=== PATIENT | female | born 1935 | race Caucasian/White ===

== ENCOUNTER 2017-08-21 03:36 | Inpatient (IN) ==
[2017-08-21] MEDS ORDERED: MethylPREDNISolone Sod Succinate Inj 125 MG/2 ML Vial IV.PUSH ONE (04:01)
[2017-08-21 04:55] LABS: Baso % (Auto) 0.3 % (0.0-2.0); Eos # (Auto) 0.2 th/mm3 (0.0-0.4); Eos % (Auto) 1.9 % (0.0-4.0); Hematocrit 28.5 % (35.0-46.0); Hemoglobin 9.6 gm/dL (11.6-15.3); Lymph # (Auto) 0.3 th/mm3 (1.0-4.8); Lymph % (Auto) 2.5 % (9.0-44.0); Mean Corpuscular HGB Conc 33.7 % (32.0-36.0); Mean Corpuscular Hemoglobin 29.7 pg (27.0-34.0); Mean Corpuscular Volume 88.3 fL (80.0-100.0); Mean Platelet Volume 8.1 fL (7.0-11.0); Mono # (Auto) 0.5 th/mm3 (0.0-0.9); Neut # (Auto) 11.8 th/mm3 (1.8-7.7); Neut % (Auto) 91.3 % (16.0-70.0); Platelet Count 335 th/mm3 (150-450); Red Blood Count 3.23 mil/mm3 (4.00-5.30); Red Cell Distribution Width 14.3 % (11.6-17.2); White Blood Count 12.9 th/mm3 (4.0-11.0)
[2017-08-21 05:11] LABS: Alanine Aminotransferase 24 U/L (10-53); Albumin 2.7 g/dL (3.4-5.0); Anion Gap 7 meq/L (5-15); Aspartate Aminotransferase 15 U/L (15-37); Blood Urea Nitrogen 25 mg/dL (7-18); Calcium 7.6 mg/dL (8.5-10.1); Carbon Dioxide 34.3 meq/L (21.0-32.0); Chloride 94 meq/L (98-107); Glomerular Filtration Rate 64 mL/min (>89); Glucose,Random 121 mg/dL (74-106); Magnesium 2.7 mg/dL (1.5-2.5); Potassium 3.2 meq/L (3.5-5.1); Sodium 135 meq/L (136-145)
--- NOTE | 2017-08-21 05:11 | ED ---
HPI General Chief complaint: Shortness of Breath/Dyspnea Stated complaint: Resp Distress, EVAC Time Seen by Provider: 08/21/17 03:49 History of Present Illness HPI narrative: Patient presents to the ER complaining of shortness of breath. Symptoms have been present for a few days. She was a DNR but she states that she is a full code. Normally takes oxygen 2 L for the last 4-5 days she has had shortness of breath is worse at night. Denies chest pain, fever, nausea, vomiting, edema, reports feeling hot states that she recently had a surgery has been immobile for the past few weeks. Patient has a history of COPD and states that the symptoms are consistent with her COPD exacerbation. Related Data Home Medications Medication Instructions Recorded Confirmed acetaminophen 650 mg PO Q4H PRN 08/21/17 08/21/17 amlodipine 10 mg PO DAILY 08/21/17 08/21/17 baclofen 5 mg PO BID 08/21/17 08/21/17 bisacodyl [Dulcolax (bisacodyl)] 10 mg [place] DAILY PRN 08/21/17 08/21/17 calcium carbonate 600 mg PO BID 08/21/17 08/21/17 furosemide 40 mg PO DAILY 08/21/17 08/21/17 guaifenesin 100 mg PO Q4H PRN 08/21/17 08/21/17 hydrocodone-acetaminophen 1 tab PO Q4-6H PRN 08/21/17 08/21/17 ipratropium-albuterol [Combivent 1 puff INHALATION Q6H 08/21/17 08/21/17 Respimat] lorazepam 08/21/17 losartan 08/21/17 methylprednisolone [Medrol (Mike)] 0 PO PER PKG DIR 08/21/17 metoprolol tartrate 50 mg PO BID 08/21/17 08/21/17 gghxloteotep-enqx-feyir acid 1 tab PO DAILY 08/21/17 08/21/17 [Cerovite Advanced Formula] Allergies Allergy/AdvReac Type Severity Reaction Status Date / Time Penicillins Allergy Intermediate Blister Verified 08/21/17 03:53 Review of Systems ROS Unobtainable All other systems reviewed negative except as stated in HPI [facility] Medical History Medical History COPD (chronic obstructive pulmonary disease) (Acute) Pneumonia (Acute) Hypertension (Acute) Anxiety (Acute) Social History Social History Second Hand Smoke Exposure: Yes Smoking Status: Never smoker How Often Do You Have a Drink Containing Alcohol: Never Recent Travel in [place] within the Last 8 Weeks: No Recent Out of Country Travel within the Last 8 Weeks: No Immunization History Tetanus Immunization: <5 Years Hx Influenza Vaccine This Season: Yes Exam Narrative Exam Narrative: GENERAL: Respiratory distress. SKIN: Focused skin assessment warm/dry. HEAD: Atraumatic. Normocephalic. EYES: Pupils equal and round. No scleral icterus. No injection or drainage. ENT: No nasal bleeding or discharge. Mucous membranes pink and moist. NECK: Trachea midline. No JVD. CARDIOVASCULAR: Regular rate and rhythm. No murmur appreciated. RESPIRATORY: No accessory muscle use. And movement bilaterally, expiratory to her wheezes. GASTROINTESTINAL: Abdomen soft, non-tender, nondistended. Hepatic and splenic margins not palpable. MUSCULOSKELETAL: No obvious deformities. No clubbing. No cyanosis. No edema. NEUROLOGICAL: Awake and alert. No obvious cranial nerve deficits. Motor grossly within normal limits. Normal speech. PSYCHIATRIC: Appropriate mood and affect; insight and judgment normal. Course Initial Documented Vital Signs Temperature 98.4 F 08/21/17 03:41 Pulse Rate 82 08/21/17 03:41 Respiratory Rate 20 08/21/17 03:41 Blood Pressure 136/68 08/21/17 03:41 Pulse Oximetry 89 L 08/21/17 03:41 Last Documented Vital Signs Temperature 98.4 F 08/21/17 03:41 Pulse Rate 85 08/21/17 04:18 Respiratory Rate 24 08/21/17 04:18 Blood Pressure 136/68 08/21/17 03:55 Pulse Oximetry 95 08/21/17 04:19 Medical Decision Making [facility] [place] Narrative Medical decision making narrative: Patient presents to the ER complaining of her story distress. Placed on BiPAP, monitoring and evaluation advisor, continuous pulse ox, and IV access obtained. EKG/chest x-ray/labs ordered. Also given 125 mg IV methylprednisolone and 2 duo nebs. ECG: Sinus rhythm, left axis deviation, rate 83, T-wave inversion in V1 and V2, mild ST depression in V5 and V6 labs: Leukocytosis, decrease hgb/HCT; glucose/magnesium/alk phos/BUN increased; decrease potassium CXR: CONCLUSION: Left lower lobe pulmonary consolidation versus atelectasis and possible small left pleural effusion. Given levaquin 750mg IV 2/2 PCN allergy. Also given 2 duonebs and 125mg IV solumedrol. 0813: Patient's coags were clotted. Lab is coming to recollect. Discussed with Dr Rose, the admit MD that PE was in my differential for her. He will f/u on coags and order imaging if needed to r/o PE. Lab Data Result diagrams: 08/21/17 04:40 08/21/17 04:40 Lab Results 08/21/17 08/21/17 08/21/17 Range/Units 04:40 04:40 04:40 WBC 12.9 H (4.0-11.0) th/mm3 RBC 3.23 L (4.00-5.30) mil/mm3 Hgb 9.6 L (11.6-15.3) gm/dL Hct 28.5 L (35.0-46.0) % MCV 88.3 (80.0-100.0) fL MCH 29.7 (27.0-34.0) pg MCHC 33.7 (32.0-36.0) % RDW 14.3 (11.6-17.2) % Plt Count 335 (150-450) th/mm3 MPV 8.1 (7.0-11.0) fL Neut % (Auto) 91.3 H (16.0-70.0) % Lymph % (Auto) 2.5 L (9.0-44.0) % [place] % (Auto) 4.0 (0.0-8.0) % Eos % (Auto) 1.9 (0.0-4.0) % Baso % (Auto) 0.3 (0.0-2.0) % Neut # (Auto) 11.8 H (1.8-7.7) th/mm3 Lymph # (Auto) 0.3 L (1.0-4.8) th/mm3 [place] # (Auto) 0.5 (0.0-0.9) th/mm3 Eos # (Auto) 0.2 (0.0-0.4) th/mm3 Baso # (Auto) 0.0 (0.0-0.2) th/mm3 WBC Differential . Differential Comment Auto diff final Sodium 135 L (136-145) meq/L Potassium 3.2 L (3.5-5.1) meq/L Chloride 94 L (98-107) meq/L Carbon Dioxide 34.3 H (21.0-32.0) meq/L Anion Gap 7 (5-15) meq/L BUN 25 H (7-18) mg/dL Creatinine 0.85 (0.50-1.00) mg/dL Estimated GFR 64 L (>89) mL/min Random Glucose 121 H (74-106) mg/dL Lactic Acid (0.4-2.0) mmol/L Calcium 7.6 L (8.5-10.1) mg/dL Magnesium 2.7 H (1.5-2.5) mg/dL Total Bilirubin 0.4 (0.2-1.0) mg/dL AST 15 (15-37) U/L ALT 24 (10-53) U/L Alkaline Phosphatase 126 H (45-117) U/L Total Creatine Kinase 37 (26-192) U/L Troponin I Less than 0.02 L (0.02-0.05) ng/mL B-Natriuretic Peptide 47 (0-100) pg/mL Total Protein 5.4 L (6.4-8.2) g/dL Albumin 2.7 L (3.4-5.0) g/dL 08/21/17 Range/Units 06:30 WBC (4.0-11.0) th/mm3 RBC (4.00-5.30) mil/mm3 Hgb (11.6-15.3) gm/dL Hct (35.0-46.0) % MCV (80.0-100.0) fL MCH (27.0-34.0) pg MCHC (32.0-36.0) % RDW (11.6-17.2) % Plt Count (150-450) th/mm3 MPV (7.0-11.0) fL Neut % (Auto) (16.0-70.0) % Lymph % (Auto) (9.0-44.0) % [place] % (Auto) (0.0-8.0) % Eos % (Auto) (0.0-4.0) % Baso % (Auto) (0.0-2.0) % Neut # (Auto) (1.8-7.7) th/mm3 Lymph # (Auto) (1.0-4.8) th/mm3 [place] # (Auto) (0.0-0.9) th/mm3 Eos # (Auto) (0.0-0.4) th/mm3 Baso # (Auto) (0.0-0.2) th/mm3 WBC Differential Differential Comment Sodium (136-145) meq/L Potassium (3.5-5.1) meq/L Chloride (98-107) meq/L Carbon Dioxide (21.0-32.0) meq/L Anion Gap (5-15) meq/L BUN (7-18) mg/dL Creatinine (0.50-1.00) mg/dL Estimated GFR (>89) mL/min Random Glucose (74-106) mg/dL Lactic Acid 0.7 (0.4-2.0) mmol/L Calcium (8.5-10.1) mg/dL Magnesium (1.5-2.5) mg/dL Total Bilirubin (0.2-1.0) mg/dL AST (15-37) U/L ALT (10-53) U/L Alkaline Phosphatase (45-117) U/L Total Creatine Kinase (26-192) U/L Troponin I (0.02-0.05) ng/mL B-Natriuretic Peptide (0-100) pg/mL Total Protein (6.4-8.2) g/dL Albumin (3.4-5.0) g/dL Imaging Data Radiologist's impression: ITS Impressions Chest X-Ray 08/21/17 03:59 CONCLUSION: Left lower lobe pulmonary consolidation versus atelectasis and possible small left pleural effusion. Discharge Plan Discharge Disposition Patient Disposition: 30 Still Patient Discharge Condition Condition: Stable Discharge Details Discharge Problem: Pneumonia, COPD (chronic obstructive pulmonary disease) Physicians Team ED Provider: Louann Wallace Primary Care Provider: UNKNOWN, Attending Provider: Benjamin Rose Discharge Interventions Interventions: Vital Signs Last Done: 08/21/17 03:55 Status ED Status: Admitted Patient
[2017-08-21 05:15] LABS: Alkaline Phosphatase 126 U/L (45-117); Total Protein 5.4 g/dL (6.4-8.2)
[2017-08-21 05:16] LABS: Creatine Kinase 37 U/L (26-192)
--- NOTE | 2017-08-21 05:31 | XR ---
EXAM DATE: 08/21/2017 5:19 AM EDT AGE/SEX: 81 years / Female INDICATIONS: Short of breath. CLINICAL DATA: This is the patient's subsequent encounter. Patient reports that signs and symptoms h ave been present for 1 day and indicates a pain score of 6/10. MEDICAL/SURGICAL HISTORY: None. None. COMPARISON: No prior exams available for comparison. FINDINGS: Single AP view of the chest. Confluent opacity at the left lung base indicates consolidation versus a telectasis. Mild blunting of the left costophrenic sulcus. Scarring at the left lung apex. Right lung clear. Cardiomediastinal silhouette within normal limits. No evidence of pneumothorax. CONCLUSION: Left lower lobe pulmonary consolidation versus atelectasis and possible small left pleural effusion. Electronically signed by: Gustavo Walden MD 08/21/2017 5:30 AM EDT
[2017-08-21] MEDS ORDERED: Acetaminophen 325 MG Tablet PO PRN (06:54)
[2017-08-21] MEDS ORDERED: Bisacodyl 10 MG Supp RECTAL PRN (06:54)
[2017-08-21 08:52] LABS: Activated Partial Thrombo Time 22.8 sec (24.3-30.1); Prothrombin Time 10.9 sec (9.8-11.6)
[2017-08-21 08:54] LABS: D-Dimer 1.43 mg/L FEU (0.00-0.50); INR 1.1 Ratio
[2017-08-21] MEDS: Heparin - SQ 10,000 UNITS/ML Vial SQ SCH ×2 (09:41→19:08)
--- NOTE | 2017-08-21 10:26 | CT ---
EXAM DATE: 08/21/2017 10:20 AM EDT AGE/SEX: 81 years / Female INDICATIONS: Short of breath 1 week with wheezing CLINICAL DATA: This is the patient's initial encounter. Patient reports that signs and symptoms have been present for 1 week and indicates a pain score of 0/10. MEDICAL/SURGICAL HISTORY: Chronic obstructive pulmonary disease. Hypertension. Anxiety None. RADIATION DOSE: 5.43 CTDI (mGy) COMPARISON: No prior exams available for comparison. TECHNIQUE: Volumetric scanning was performed using a multi-row detector CT scanner during bolus infu rajendra of 75ML ml Omnipaque 350 (iohexol) nonionic water-soluble contrast as a single exam dose. The d tana was post processed with a variety of visualization algorithms including full volume maximum inten sity projection and sliding thin slab reformation. Using automated exposure control and adjustment of the mA and/or kV according to patient size, radiation dose was kept as low as reasonably achievable to obtain optimal diagnostic quality images. DICOM format image data is available electronically for review and comparison. FINDINGS: Pulmonary Arteries: No filling defects are seen in the pulmonary arteries out to the subsegmental ve ssels. The left and right pulmonary arteries are normal in diameter. Lung: Left lower lobe consolidation. Mild emphysema. Biapical parenchymal scarring greater right ape x. Minimal patchy density in the posterior right upper lobe. Effusion: Small left pleural effusion. Mediastinum: No evidence of mediastinal or hilar adenopathy. Coronary artery calcifications. Other: The axilla is unremarkable. Atrophic left kidney containing prominent left renal calculus. Mu ltiple hepatic low densities. Multiple compression fractures of the lumbar spine. Extensive calcifica tions upper abdominal aorta. CONCLUSION: 1. Left lower lobe consolidation and patchy infiltrate right upper lobe. 2. Small left pleural effusion. 3. Mild emphysema without mass. 4. No evidence for pulmonary embolism. 5. Coronary artery calcifications. 6. Multiple hepatic low densities. 7. Extensive calcification of the upper abdominal aorta. Electronically signed by: Stanton Ballard MD 08/21/2017 10:25 AM EDT
[2017-08-21] MEDS: Senna/Docusate Sodium 8.6/50 MG Tablet PO SCH ×2 (10:34→20:09)
--- NOTE | 2017-08-21 11:13 | ECG ---
Date Performed: 08/21/2017 Time Performed: 03:47:54 PTAGE: 81 years EKG: Sinus rhythm LEFT AXIS DEVIATION MINIMAL VOLTAGE CRITERIA FOR LVH, CONSIDER NORMAL VARIANT NONSPECIFIC ST & T-WAV E ABNORMALITY ABNORMAL ECG NO PREVIOUS TRACING DOCTOR: Jairo Mendez Interpretating Date/Time 08/21/2017 11:11:53
[2017-08-21] MEDS ORDERED: Non-Formulary Drug (Ipratropium-Albuterol [Combivent Respimat] 1 PUFF) INHALATION SCH (12:45)
[2017-08-21] MEDS ORDERED: predniSONE 20 MG Tablet PO ONE (14:00)
--- NOTE | 2017-08-21 14:42 | P.HPIM ---
History of Present Illness Primary Care Physician: UNKNOWN History of Present Illness: Mrs. Hayes is an 81-year-old female. She has a past history of right leg fracture which was repaired and she subsequently was discharged to a assisted facility from [facility]. She says at the assisted facility she had developed pneumonia. She was started on IV antibiotics for this and initially had had improvement but recently while still in treatment she has been getting worse again. This likely represents a treatment failure with resistance. She cannot recall the antibiotic. She cannot recall the assisted facility name which she was admitted. The medical reconciliation does not appear to be up-to-date as no antibiotic is listed. Imaging shows a right upper lobe pneumonia and a left lower lobe pneumonia. Was treatments in the ER and oxygen supplementation patient is more comfortable when seen. Inpatient Certification: I certify that the inpatient services were ordered in accordance with Medicare regulations governing the order. This includes certification that hospital inpatient services are reasonable and necessary and in the case of services not specified as inpatient-only under 42 CFR 419.22(n), that they are appropriately provided as inpatient services in accordance to with the 2-midnight benchmark under 43 CFR 412.3(e) Estimated Total Length of Stay (Days): 4 Plans for Post Hospital Care: Not yet determined Review of Systems Constitutional: Reports fatigue, Reports weakness, Denies chills Eyes: Denies blind spots, Denies blurry vision, Denies bulging eyes Ears, Nose, Mouth, and Throat: Denies abnormal hearing, Denies ear pain, Denies sinus pain Cardiovascular: Reports shortness of breath, Denies chest pain, Denies chest pain at rest, Denies chest pain with activity Respiratory: Reports cough, Reports shortness of breath, Reports wheezing Gastrointestinal: Denies abdominal pain, Denies bright, red blood in stools, Denies constipation Musculoskeletal: Denies abnormal walking, Denies back pain, Denies body aches Skin/Breast: Denies rash, Denies skin pain, Denies skin ulcer PMFSH - History History Provided By: Patient - Medical History Medical History: Medical History (Last Updated 08/21/17 @ 14:36 by Benjamin Rose MD) COPD (chronic obstructive pulmonary disease) (Acute) Pneumonia (Acute) Hypertension (Acute) Anxiety (Acute) Closed right hip fracture Leg fracture, right Right wrist fracture - Tobacco History Second Hand Smoke Exposure: Yes Smoking Status: Never smoker - Alcohol History How Often Do You Have a Drink Containing Alcohol: Never - Travel History Recent Travel in the [place] Within the Last 8 Weeks: No Recent Travel Out of the Country Within the Last 8 Weeks: No - Immunization History Tetanus Immunization: <5 Years Hx Influenza Vaccine This Season: Yes Medications and Allergies Active Medications: Active Medications Acetaminophen (Tylenol) 650 mg PO Q4H PRN PRN Reason: Temp > 100.4 Al Hydroxide/Mg Hydroxide (Milk Of Magnesia Liq) 30 ml PO Q12H PRN PRN Reason: Mild Constipation Albuterol (Duoneb Neb (Prn)) 1 ampul NEB Q4HR NEB PRN PRN Reason: SOB/wheezing Last Admin: 08/21/17 08:12 Dose: 1 ampul Albuterol (Ventolin Hfa Inh) 1 puff INH QID [facility] Amlodipine Besylate (Norvasc) 10 mg PO DAILY [facility] Baclofen (Lioresal) 5 mg PO BID [facility] Bisacodyl (Dulcolax Supp) 10 mg [place]CT[place] DAILY PRN PRN Reason: SEVERE CONSITIPATION Furosemide (Lasix) 40 mg PO DAILY [facility] Guaifenesin (Tobitussin Liq) 100 mg PO Q4H PRN PRN Reason: COUGH Heparin Sodium (Porcine) (Heparin Inj) 5,000 units SQ Q12H [facility] Last Admin: 08/21/17 09:41 Dose: 5,000 units Aztreonam 2 gm/ Sodium (Chloride) 100 mls @ 200 mls/hr IV.SIG Q8H [facility] Azithromycin 500 mg/ Sodium (Chloride) 250 mls @ 250 mls/hr IV.SIG Q24H [facility] Lactobacillus Acidophilus (Lactinex) 1 tab PO TID [facility] Lactulose (Lactulose Liq) 30 ml PO DAILY PRN PRN Reason: SEVERE CONSITIPATION Metoprolol Tartrate (Lopressor) 50 mg PO BID [facility] Ondansetron HCl (Zofran Inj) 4 mg IV.PUSH Q6H PRN PRN Reason: NAUSEA OR VOMITING Prednisone (Deltasone) 20 mg PO DAILY [facility] Senna/Docusate Sodium (Betty-Colace) 1 tab PO BID [facility] Last Admin: 08/21/17 10:34 Dose: Not Given Sennosides (Senokot) 17.2 mg PO Q12H PRN PRN Reason: Moderate Constipation Temazepam (Restoril) 15 mg PO HS PRN PRN Reason: INSOMNIA Tiotropium [place] (Spiriva 18 Mcg Inh) 18 mcg INH DAILY [facility] Vitamin B Complex/Vit C/Folic Acid (Nephrocaps) 1 tab PO DAILY [facility] Allergies Allergy/AdvReac Type Severity Reaction Status Date / Time Penicillins Allergy Intermediate Blister Verified 08/21/17 03:53 Home Medications Medication Instructions Recorded Confirmed Type acetaminophen 650 mg PO Q4H PRN 08/21/17 08/21/17 History amlodipine 10 mg PO DAILY 08/21/17 08/21/17 History baclofen 5 mg PO BID 08/21/17 08/21/17 History bisacodyl [Dulcolax (bisacodyl)] 10 mg [place] DAILY PRN 08/21/17 08/21/17 History calcium carbonate 600 mg PO BID 08/21/17 08/21/17 History furosemide 40 mg PO DAILY 08/21/17 08/21/17 History guaifenesin 100 mg PO Q4H PRN 08/21/17 08/21/17 History hydrocodone-acetaminophen 1 tab PO Q4-6H PRN 08/21/17 08/21/17 History ipratropium-albuterol [Combivent 1 puff INHALATION Q6H 08/21/17 08/21/17 History Respimat] lorazepam 08/21/17 History losartan 08/21/17 History methylprednisolone [Medrol (Mike)] 0 PO PER PKG DIR 08/21/17 History metoprolol tartrate 50 mg PO BID 08/21/17 08/21/17 History tfnzjklxjjbc-movr-tjiqw acid 1 tab PO DAILY 08/21/17 08/21/17 History [Cerovite Advanced Formula] Exam Vital signs: Vital Signs 08/21/17 03:41 08/21/17 03:55 08/21/17 04:18 Temperature 98.4 F Pulse Rate 82 85 85 Respiratory Rate 20 22 24 Blood Pressure 136/68 136/68 Pulse Oximetry 89 L 95 08/21/17 04:19 08/21/17 08:10 08/21/17 08:12 Temperature Pulse Rate 82 Respiratory Rate 22 Blood Pressure Pulse Oximetry 95 98 96 08/21/17 09:38 08/21/17 11:10 08/21/17 11:20 Temperature Pulse Rate 94 H 70 Respiratory Rate 18 18 Blood Pressure 140/63 160/99 H Pulse Oximetry 98 98 95 08/21/17 12:00 Temperature 98.2 F Pulse Rate 88 Respiratory Rate 17 Blood Pressure 135/63 Pulse Oximetry 97 Intake & Output 08/20/17 08/21/17 08/21/17 18:59 06:59 18:59 Intake Total 150 / 150 Balance 150 / 150 Weight 65 kg Intake: IV 150 / 150 Levaquin 750 mg Premix Inj 150 150 / 150 ML @ 100 mls/hr IV.SIG ONCE ONE Rx#:[id number] - Routine HEENT Exam Comments: GENERAL: NAD, A&Ox3 HEAD: Normocephalic. NECK: Supple, trachea midline. No lymphadenopathy. EYES: No scleral icterus. No injection or drainage. CARDIOVASCULAR: Regular rate and rhythm without murmurs, gallops, or rubs. RESPIRATORY: Breath sounds equal bilaterally. No accessory muscle use. GASTROINTESTINAL: Abdomen soft, non-tender, nondistended. MUSCULOSKELETAL: No cyanosis, or edema. Limited range of motion at right leg SKIN: Warm and dry. NEURO: No focal neurological deficits. Results - Labs CBC & Chem 7: 08/21/17 04:40 08/21/17 04:40 Labs: Short CBC 08/21/17 Range/Units 04:40 WBC 12.9 H (4.0-11.0) th/mm3 Hgb 9.6 L (11.6-15.3) gm/dL Hct 28.5 L (35.0-46.0) % Plt Count 335 (150-450) th/mm3 BMP 08/21/17 04:40 Sodium 135 L Potassium 3.2 L Chloride 94 L Carbon Dioxide 34.3 H BUN 25 H Creatinine 0.85 Calcium 7.6 L Cardiac Enzymes 08/21/17 Range/Units 04:40 Total Creatine Kinase 37 (26-192) U/L Troponin I Less than 0.02 L (0.02-0.05) ng/mL Liver Function 08/21/17 Range/Units 04:40 Total Bilirubin 0.4 (0.2-1.0) mg/dL AST 15 (15-37) U/L ALT 24 (10-53) U/L Alkaline Phosphatase 126 H (45-117) U/L Albumin 2.7 L (3.4-5.0) g/dL - Imaging Impressions Chest CTA 08/21/17 00:00 CONCLUSION: 1. Left lower lobe consolidation and patchy infiltrate right upper lobe. 2. Small left pleural effusion. 3. Mild emphysema without mass. 4. No evidence for pulmonary embolism. 5. Coronary artery calcifications. 6. Multiple hepatic low densities. 7. Extensive calcification of the upper abdominal aorta. Chest X-Ray 08/21/17 03:59 CONCLUSION: Left lower lobe pulmonary consolidation versus atelectasis and possible small left pleural effusion. Caprini VTE Risk Assessment Caprini VTE Risk Assessment: Moderate/High Risk (score >= 2) Caprini Risk Assessment Model: Point Value = 1 Point Value = 2 Point Value = 3 Point Value = 5 Age 41-60 Minor surgery BMI > 25 kg/m2 Swollen legs Varicose veins or History of unexplained or recurrent spontaneous Oral contraceptives or hormone replacement Sepsis (< 1 month) Serious lung disease, including pneumonia (< 1 month) Abnormal pulmonary function Acute myocardial infarction Congestive heart failure (< 1 month) History of inflammatory bowel disease Medical patient at bed rest Age 61-74 Arthroscopic surgery Major open surgery (> 45 min) Laparoscopic surgery (> 45 min) Malignancy Confined to bed (> 72 hours) Immobilizing plaster cast Central venous access Age >= 75 History of VTE Family history of VTE Factor V Leiden Prothrombin [id number] Lupus anticoagulant Anticardiolipin antibodies Elevated serum homocysteine Heparin-induced thrombocytopenia Other congenital or acquired thrombophilia Stroke (< 1 month) Elective arthroplasty Hip, pelvis, or leg fracture Acute spinal cord injury (< 1 month) Prophylaxis Regimen: Total Risk Factor Score Risk Level Prophylaxis Regimen 0-1 Low Early ambulation 2 Moderate Order ONE of the following: *Sequential Compression Device (SCD) *Heparin 5000 units SQ BID 3-4 Higher Order ONE of the following medications: *Heparin 5000 units SQ TID *Enoxaparin/Lovenox 40 mg SQ daily (WT < 150 kg, CrCl > 30 mL/min) *Enoxaparin/Lovenox 30 mg SQ daily (WT < 150 kg, CrCl > 10-29 mL/min) *Enoxaparin/Lovenox 30 mg SQ BID (WT < 150 kg, CrCl > 30 mL/min) AND/OR *Sequential Compression Device (SCD) 5 or more Highest Order ONE of the following medications: *Heparin 5000 units SQ TID (Preferred with Epidurals) *Enoxaparin/Lovenox 40 mg SQ daily (WT < 150 kg, CrCl > 30 mL/min) *Enoxaparin/Lovenox 30 mg SQ daily (WT < 150 kg, CrCl > 10-29 mL/min) *Enoxaparin/Lovenox 30 mg SQ BID (WT < 150 kg, CrCl > 30 mL/min) AND *Sequential Compression Device (SCD) Assessment and Plan - Plan 81-year-old female admitted healthcare associated pneumonia with outpatient treatment failure (resistance) Healthcare associated pneumonia Outpatient treatment failure Suspected resistance Penicillin allergy present azithromycin and aztreonam provided Provide oxygen support ID consulted COPD Hypoxia No acute exacerbation but this condition appears to be compounding the patient' s pneumonia symptoms Continue breathing treatments as needed Continue oxygen Steroids initiated Subacute right leg fracture Patient was in PT as an outpatient at a assisted facility Continue PT here Hypertension Continue baseline treatment Follow blood pressures Adjust treatments as needed General anxiety disorder No change to baseline treatment plan DVT prophylaxis Lovenox Discharge planning Once patient is stabilized I anticipate she will be returning to a assisted facility
[2017-08-21] MEDS: Azithromycin Inj 500 MG in Sodium Chlor 0.9% Inj 250 ML IV.SIG SCH (15:16)
[2017-08-21] MEDS: Aztreonam Inj 2 GM in Sodium Chloride 0.9% Inj 100 ML IV.SIG SCH ×2 (16:43→22:23)
[2017-08-21] MEDS: Lactobacillus Acidophilus/L. Spores Tablet PO SCH (19:08)
[2017-08-21] MEDS: Metoprolol Tartrate 50 MG Tablet PO SCH (20:09)
[2017-08-21] MEDS: Calcium Carbonate 500 MG Tablet PO SCH (20:09)
[2017-08-21] MEDS: Baclofen 10 MG Tablet PO SCH (20:10)
[2017-08-21] MEDS: Temazepam 15 MG Capsule PO PRN (20:10)
[2017-08-22 05:48] LABS: Baso % (Auto) 0.4 % (0.0-2.0); Eos # (Auto) 0.1 th/mm3 (0.0-0.4); Eos % (Auto) 0.5 % (0.0-4.0); Lymph # (Auto) 0.5 th/mm3 (1.0-4.8); Lymph % (Auto) 4.3 % (9.0-44.0); Mean Corpuscular HGB Conc 33.3 % (32.0-36.0); Mean Corpuscular Hemoglobin 29.7 pg (27.0-34.0); Mean Corpuscular Volume 89.3 fL (80.0-100.0); Mean Platelet Volume 7.8 fL (7.0-11.0); Mono # (Auto) 0.6 th/mm3 (0.0-0.9); Mono % (Auto) 5.3 % (0.0-8.0); Neut # (Auto) 9.9 th/mm3 (1.8-7.7); Neut % (Auto) 89.5 % (16.0-70.0); Platelet Count 307 th/mm3 (150-450); Red Blood Count 3.02 mil/mm3 (4.00-5.30); Red Cell Distribution Width 14.5 % (11.6-17.2)
[2017-08-22] MEDS ORDERED: amLODIPine 10 MG Tablet PO SCH ×2 (06:00→09:00)
[2017-08-22] MEDS: Aztreonam Inj 2 GM in Sodium Chloride 0.9% Inj 100 ML IV.SIG SCH ×2 (06:05→14:22)
[2017-08-22] MEDS: Heparin - SQ 10,000 UNITS/ML Vial SQ SCH ×2 (06:05→21:10)
[2017-08-22 06:11] LABS: Calcium 8.9 mg/dL (8.5-10.1); Carbon Dioxide 37.3 meq/L (21.0-32.0); Potassium 4.2 meq/L (3.5-5.1)
[2017-08-22] MEDS: Vitamin B Complex/Vit C/Folic Tablet PO SCH (08:01)
[2017-08-22] MEDS: predniSONE 20 MG Tablet PO SCH (08:02)
[2017-08-22] MEDS: Calcium Carbonate 500 MG Tablet PO SCH ×2 (08:02→21:07)
[2017-08-22] MEDS: Senna/Docusate Sodium 8.6/50 MG Tablet PO SCH ×2 (08:02→21:07)
[2017-08-22] MEDS: Metoprolol Tartrate 50 MG Tablet PO SCH ×2 (08:02→21:07)
[2017-08-22] MEDS: Lactobacillus Acidophilus/L. Spores Tablet PO SCH ×3 (08:02→18:14)
[2017-08-22] MEDS: Furosemide 40 MG Tablet PO SCH (08:02)
[2017-08-22] MEDS: Baclofen 10 MG Tablet PO SCH ×2 (08:02→21:08)
[2017-08-22] MEDS: Tiotropium Bromide 18 MCG/ACT Inhaler INH SCH (08:03)
--- NOTE | 2017-08-22 11:21 | P.PNIM ---
Subjective Interval history: Patient reports she is feeling slightly better but continues to be short of breath. She denies any chest pain. She feels the cough is more wet and hoping to bring up sputum soon. Physical Exam Vital signs: Vital Signs 08/21/17 12:00 08/21/17 16:00 08/21/17 20:00 Temperature 98.2 F 98.5 F 96.6 F L Pulse Rate 88 87 87 Respiratory Rate 17 15 18 Blood Pressure 135/63 144/64 H 143/67 H Pulse Oximetry 97 97 98 08/21/17 21:18 08/22/17 00:14 08/22/17 01:23 Temperature 97.7 F Pulse Rate 79 Respiratory Rate 16 Blood Pressure 181/80 H 188/80 H Pulse Oximetry 97 99 08/22/17 02:06 08/22/17 02:34 08/22/17 04:52 Temperature 97.7 F Pulse Rate 86 Respiratory Rate 18 Blood Pressure 192/84 H 141/64 H 184/85 H Pulse Oximetry 95 08/22/17 05:11 08/22/17 07:11 08/22/17 07:43 Temperature 98.2 F Pulse Rate 85 66 98 H Respiratory Rate 18 19 18 Blood Pressure 155/68 H Pulse Oximetry 94 L 90 L Intake & Output 08/21/17 08/22/17 08/22/17 18:59 06:59 18:59 Intake Total 500 / 500 100 / 100 100 / 100 Balance 500 / 500 100 / 100 100 / 100 Weight 65 kg Intake: IV 500 / 500 100 / 100 100 / 100 Azithromycin Inj 500 MG In NS 250 / 250 Inj 250 ML @ 250 mls/hr IV.SIG Q24H [facility] Rx#:[id number] Azactam Inj 2 GM In NS Inj 100 100 / 100 100 / 100 100 / 100 ML @ 200 mls/hr IV.SIG Q8H [facility] Rx#:[id number] Levaquin 750 mg Premix Inj 150 150 / 150 ML @ 100 mls/hr IV.SIG ONCE ONE Rx#:[id number] Other: # Voids 1 Date of Last Bowel Movement 08/21/17 08/21/17 # Bowel Movements 1 Weight On Admission 65 kg Narrative: GENERAL: Frail and elderly female, gets short of breath with long sentences. CARDIOVASCULAR: Normal rate and regular rhythm without murmurs, gallops, or rubs. RESPIRATORY: Air movement is fair. Diffuse rhonchi throughout. Wet cough. GASTROINTESTINAL: Abdomen soft, non-tender, non-distended. Normal active bowel sounds MUSCULOSKELETAL: Extremities without cyanosis, or edema. NEURO: Alert & Oriented x4 to person, place, time, situation. Moves all ext x4 PSYCH: Appropriate mood and affect. Results - Labs CBC & Chem 7: 08/22/17 05:25 08/22/17 05:25 Laboratory Results - last 24 hr 08/22/17 08/22/17 05:25 05:25 WBC 11.0 RBC 3.02 L Hgb 9.0 L Hct 27.0 L MCV 89.3 MCH 29.7 MCHC 33.3 RDW 14.5 Plt Count 307 MPV 7.8 Neut % (Auto) 89.5 H Lymph % (Auto) 4.3 L [place] % (Auto) 5.3 Eos % (Auto) 0.5 Baso % (Auto) 0.4 Neut # (Auto) 9.9 H Lymph # (Auto) 0.5 L [place] # (Auto) 0.6 Eos # (Auto) 0.1 Baso # (Auto) 0.0 WBC Differential . Differential Comment Auto diff final Sodium 138 Potassium 4.2 D Chloride 95 L Carbon Dioxide 37.3 H Anion Gap 6 BUN 24 H Creatinine 1.09 H Estimated GFR 48 L Random Glucose 93 Calcium 8.9 D Microbiology 08/21/17 06:30 Blood - Peripheral Aerobic Blood Culture - Preliminary No growth in 1 day 08/21/17 06:30 Blood - Peripheral Anaerobic Blood Culture - Preliminary No growth in 1 day 08/21/17 06:25 Blood - Peripheral Aerobic Blood Culture - Preliminary No growth in 1 day 08/21/17 06:25 Blood - Peripheral Anaerobic Blood Culture - Preliminary No growth in 1 day Assessment and Plan - Plan 81-year-old female admitted for healthcare associated pneumonia after outpatient treatment failure (?resistance) Healthcare associated pneumonia Outpatient treatment failure Suspected resistance Penicillin allergy present Continue azithromycin and aztreonam supplemental oxygen as needed. ID consulted COPD Hypoxia Continue breathing treatments as needed Continue oxygen Steroids initiated Add Mucinex Subacute right leg fracture Patient was [facility] an [facility] Continue PT here Hypertension Continue baseline treatment Follow blood pressures Adjust treatments as needed General anxiety disorder No change to baseline treatment plan DVT prophylaxis Lovenox
--- NOTE | 2017-08-22 11:37 | MB ---
cc: Keo Ambriz MD DATE: 08/22/2017 REQUESTING PHYSICIAN: Dr. Rodriguez. REASON FOR CONSULTATION: Pneumonia. HISTORY OF PRESENT ILLNESS: This is an 81-year-old white female who was brought to the emergency department from a rehabilitation facility. The patient complained of shortness of breath at the rehabilitation facility and she was brought to the emergency department for evaluation. She notes that she got up in the middle of the night and had difficulty breathing. She also now has cough, which she states started here in the hospital and she describes to me right shoulder pain, which she said occurred after she fell at the nursing facility. The patient has been started on IV antibiotics. She was recently given IV antibiotics for pneumonia. She recalls being on antibiotics for a couple of days prior to this admission. However, it is not clear how long she has been receiving IV antibiotics antibiotics, which she has received. She is a poor historian. The patient has a history of chronic obstructive pulmonary disease. A chest x-ray was performed that showed lung infiltrate in the left lower lobe. CT scan of the chest has also been performed. The patient has ALLERGY TO PENICILLIN. She has been afebrile. Her white blood cell count is 11.0 today, which is slightly decreased from yesterday. This consultation is requested for pneumonia. PAST MEDICAL HISTORY: Chronic obstructive pulmonary disease, hypertension, anxiety disorder, right hip fracture, left leg fracture, status post ORIF on 07/05/2017, right wrist fracture. ALLERGIES: PENICILLIN. MEDICATIONS: 1. Azithromycin. 2. Aztreonam. 3. Albuterol inhaler. 4. Baclofen. 5. Lasix. 6. Guaifenesin. 7. Lactinex. 8. Lopressor. 9. Prednisone. 10. Restoril. 11. Spiriva. 12. Nephrocaps. SOCIAL HISTORY: No tobacco, no alcohol, no illicit drugs. FAMILY HISTORY: Noncontributory. REVIEW OF SYSTEMS: Pertinent mentioned in history of present illness. Otherwise, negative. PHYSICAL EXAMINATION: GENERAL: She is a frail, thin female in no acute distress. She is awake and alert and oriented. VITAL SIGNS: Temperature 98.2, blood pressure is 155/68, respirations 18, heart rate 98. HEENT: Head is atraumatic. Extraocular movements grossly intact. Pupils reactive to light. No icterus. Oropharynx moist mucosa without lesions. NECK: Supple. No adenopathy. LUNGS: Coarse rhonchi and wheezing bilaterally. HEART: Regular S1, S2. No audible murmurs, rubs or gallops. ABDOMEN: Bowel sounds present. Soft, nontender. No masses palpable. RECTAL: Not performed. EXTREMITIES: No clubbing or cyanosis. Multiple ecchymotic lesions of the legs and upper extremities. No clubbing, cyanosis or edema. SKIN: No diffuse rash. NEUROLOGIC: Alert and oriented. No gross focal findings. PSYCHIATRIC: Mood is appropriate. The patient is calm and cooperative. LABORATORY DATA: WBC 11.0, platelet count 307, 89% neutrophils, hemoglobin 9.0. Sodium 135, creatinine 0.85, estimated GFR of 64. Liver function test normal. Blood cultures pending. Negative growth in 1 day. IMPRESSION: 1. Pneumonia involving both lower lobes of the lung. 2. Status post fracture of the right leg. 3. History of chronic obstructive pulmonary disease. 4. PENICILLIN ALLERGY. RECOMMENDATIONS: 1. Continue aztreonam. 2. Continue azithromycin. 3. Attempt to obtain sputum for culture. 4. Monitor the blood cultures. 5. Monitor chest x-ray. 6. Follow chest x-ray. Thank you for this consultation. I will monitor the patient's progress and adjust antibiotics depending on clinical status and culture results. Also, consider pulmonary involvement in the care of this patient. Keo Ambriz MD FFYaron/TL , 11:06 AM , 11:35 AM
[2017-08-22] MEDS: Azithromycin Inj 500 MG in Sodium Chlor 0.9% Inj 250 ML IV.SIG SCH (13:19)
[2017-08-22] MEDS: LORazepam 1 MG Tablet PO PRN ×2 (14:31→21:07)
[2017-08-23] MEDS: Aztreonam Inj 2 GM in Sodium Chloride 0.9% Inj 100 ML IV.SIG SCH ×5 (06:31→23:56)
[2017-08-23] MEDS: Heparin - SQ 10,000 UNITS/ML Vial SQ SCH ×2 (06:32→18:26)
[2017-08-23] MEDS: amLODIPine 10 MG Tablet PO SCH ×2 (07:41→18:05)
[2017-08-23] MEDS ORDERED: amLODIPine 10 MG Tablet PO SCH (09:00)
[2017-08-23] MEDS: Tiotropium Bromide 18 MCG/ACT Inhaler INH SCH (09:40)
[2017-08-23] MEDS: Senna/Docusate Sodium 8.6/50 MG Tablet PO SCH ×2 (09:42→21:09)
[2017-08-23] MEDS: Vitamin B Complex/Vit C/Folic Tablet PO SCH (09:42)
[2017-08-23] MEDS: Calcium Carbonate 500 MG Tablet PO SCH ×2 (09:42→23:27)
[2017-08-23] MEDS: Metoprolol Tartrate 50 MG Tablet PO SCH ×2 (09:43→21:09)
[2017-08-23] MEDS: Lactobacillus Acidophilus/L. Spores Tablet PO SCH ×3 (09:43→18:21)
[2017-08-23] MEDS: Furosemide 40 MG Tablet PO SCH (09:43)
[2017-08-23] MEDS: predniSONE 20 MG Tablet PO SCH (09:43)
[2017-08-23] MEDS: Baclofen 10 MG Tablet PO SCH ×2 (09:43→21:13)
--- NOTE | 2017-08-23 11:23 | P.PNID ---
Infectious Disease Brief Note Vital Signs - 24 hr Patient is sitting in chair. Notes difficult breathing. Afebrile. Cough and upper airway congestion. Admitted with shortness of breath from rehabilitation facility. This consultation is requested for pneumonia. PAST MEDICAL HISTORY: Chronic obstructive pulmonary disease, hypertension, anxiety disorder, right hip fracture, left leg fracture, status post ORIF on 07/05/2017, right wrist fracture. ALLERGIES: PENICILLIN. Active Medications Acetaminophen (Tylenol) 650 mg PO Q4H PRN PRN Reason: Temp > 100.4 Al Hydroxide/Mg Hydroxide (Milk Of Magnesia Liq) 30 ml PO Q12H PRN PRN Reason: Mild Constipation Albuterol (Duoneb Neb (Prn)) 1 ampul NEB Q4HR NEB PRN PRN Reason: SOB/wheezing Last Admin: 08/23/17 08:24 Dose: 1 ampul Albuterol (Ventolin Hfa Inh) 1 puff INH QID [facility] Last Admin: 08/23/17 09:44 Dose: Not Given Amlodipine Besylate (Norvasc) 10 mg PO DAILY [facility] Last Admin: 08/23/17 07:41 Dose: 10 mg Baclofen (Lioresal) 5 mg PO BID [facility] Last Admin: 08/23/17 09:43 Dose: 5 mg Bisacodyl (Dulcolax Supp) 10 mg RECTAL DAILY PRN PRN Reason: SEVERE CONSITIPATION Furosemide (Lasix) 40 mg PO DAILY [facility] Last Admin: 08/23/17 09:43 Dose: 40 mg Guaifenesin (Tobitussin Liq) 100 mg PO Q4H PRN PRN Reason: COUGH Last Admin: 08/22/17 14:22 Dose: 100 mg Heparin Sodium (Porcine) (Heparin Inj) 5,000 units SQ Q12H [facility] Last Admin: 08/23/17 06:32 Dose: 5,000 units Aztreonam 2 gm/ Sodium (Chloride) 100 mls @ 200 mls/hr IV.SIG Q8H [facility] Last Admin: 08/23/17 06:31 Dose: 100 mls/hr Azithromycin 500 mg/ Sodium (Chloride) 250 mls @ 250 mls/hr IV.SIG Q24H [facility] Last Infusion: 08/22/17 14:30 Dose: Infused Lactobacillus Acidophilus (Lactinex) 1 tab PO TID [facility] Last Admin: 08/23/17 09:43 Dose: 1 tab Lactulose (Lactulose Liq) 30 ml PO DAILY PRN PRN Reason: SEVERE CONSITIPATION Lorazepam (Ativan) 1 mg PO Q6H PRN PRN Reason: ANXIETY Last Admin: 08/22/17 21:07 Dose: 1 mg Metoprolol Tartrate (Lopressor) 50 mg PO BID [facility] Last Admin: 08/23/17 09:43 Dose: 50 mg Ondansetron HCl (Zofran Inj) 4 mg IV.PUSH Q6H PRN PRN Reason: NAUSEA OR VOMITING Prednisone (Deltasone) 20 mg PO DAILY [facility] Last Admin: 08/23/17 09:43 Dose: 20 mg Senna/Docusate Sodium (Betty-Colace) 1 tab PO BID [facility] Last Admin: 08/23/17 09:42 Dose: 1 tab Sennosides (Senokot) 17.2 mg PO Q12H PRN PRN Reason: Moderate Constipation Temazepam (Restoril) 15 mg PO HS PRN PRN Reason: INSOMNIA Last Admin: 08/21/17 20:10 Dose: 15 mg Tiotropium Pfeifer (Spiriva 18 Mcg Inh) 18 mcg INH DAILY [facility] Last Admin: 08/23/17 09:40 Dose: 18 mcg Vitamin B Complex/Vit C/Folic Acid (Nephrocaps) 1 tab PO DAILY [facility] Last Admin: 08/23/17 09:42 Dose: 1 tab OBJECTIVE: Vital Signs 08/22/17 11:27 08/22/17 12:00 08/22/17 15:20 Temperature 98.6 F Pulse Rate 66 89 69 Respiratory Rate 19 18 18 Blood Pressure 138/63 Pulse Oximetry 94 L 08/22/17 16:00 08/22/17 20:00 08/22/17 20:03 Temperature 97.8 F 97.6 F Pulse Rate 93 H 111 H 99 H Respiratory Rate 22 17 22 Blood Pressure 184/81 H 172/77 H Pulse Oximetry 89 L 91 L 96 Laboratory Results - last 48 hr 08/22/17 08/22/17 05:25 05:25 WBC 11.0 RBC 3.02 L Hgb 9.0 L Hct 27.0 L MCV 89.3 MCH 29.7 MCHC 33.3 RDW 14.5 Plt Count 307 MPV 7.8 Neut % (Auto) 89.5 H Lymph % (Auto) 4.3 L [place] % (Auto) 5.3 Eos % (Auto) 0.5 Baso % (Auto) 0.4 Neut # (Auto) 9.9 H Lymph # (Auto) 0.5 L [place] # (Auto) 0.6 Eos # (Auto) 0.1 Baso # (Auto) 0.0 WBC Differential . Differential Comment Auto diff final Sodium 138 Potassium 4.2 D Chloride 95 L Carbon Dioxide 37.3 H Anion Gap 6 BUN 24 H Creatinine 1.09 H Estimated GFR 48 L Random Glucose 93 Calcium 8.9 D Microbiology 08/21/17 06:30 Aerobic Blood Culture - Preliminary Blood - Peripheral No growth in 2 days Anaerobic Blood Culture - Preliminary No growth in 2 days 08/21/17 06:25 Aerobic Blood Culture - Preliminary Blood - Peripheral No growth in 2 days Anaerobic Blood Culture - Preliminary No growth in 2 days PHYSICAL EXAMINATION: GENERAL: She is a frail, thin female in no acute distress. HEENT: Head is atraumatic. Extraocular movements grossly intact. Pupils reactive to light. No icterus. Oropharynx moist mucosa without lesions. NECK: Supple. No adenopathy. LUNGS: Coarse bilateral rhonchi. HEART: Regular S1, S2. No audible murmurs, rubs or gallops. ABDOMEN: Bowel sounds present. Soft, nontender. No masses palpable. EXTREMITIES: No clubbing or cyanosis. Multiple ecchymotic lesions of the legs and upper extremities. No clubbing, cyanosis or edema. SKIN: No diffuse rash. NEUROLOGIC: Alert and oriented. No gross focal findings. PSYCHIATRIC: Mood is appropriate. The patient is calm and cooperative. IMPRESSION: 1. Pneumonia involving both lower lobes of the lung. 2. Status post fracture of the right leg. 3. History of chronic obstructive pulmonary disease. 4. PENICILLIN ALLERGY. Does not seem to have improved over yesterday. RECOMMENDATIONS: 1. Continue aztreonam. 2. Continue azithromycin. 3. Send sputum culture. 4. Monitor the blood cultures. 5. Monitor chest x-ray.
--- NOTE | 2017-08-23 13:28 | P.PNIM ---
Subjective Interval history: Patient reports her shortness of breath is slightly better today. Coughing up yellow sputum. Physical Exam Vital signs: Vital Signs 08/22/17 15:20 08/22/17 16:00 08/22/17 20:00 Temperature 97.8 F 97.6 F Pulse Rate 69 93 H 111 H Respiratory Rate 18 22 17 Blood Pressure 184/81 H 172/77 H Pulse Oximetry 89 L 91 L 08/22/17 20:03 08/22/17 23:35 08/23/17 00:08 Temperature 97.8 F Pulse Rate 99 H 88 89 Respiratory Rate 22 16 22 Blood Pressure 180/80 H Pulse Oximetry 96 92 L 08/23/17 02:31 08/23/17 04:00 08/23/17 08:00 Temperature 98.2 F 97.4 F L Pulse Rate 87 88 87 Respiratory Rate 16 20 Blood Pressure 157/72 H 190/86 H 163/74 H Pulse Oximetry 93 L 87 L 08/23/17 08:25 08/23/17 08:27 08/23/17 11:54 Temperature Pulse Rate 82 80 Respiratory Rate 20 24 Blood Pressure Pulse Oximetry 91 L 08/23/17 12:00 Temperature 95.8 F L Pulse Rate 91 H Respiratory Rate 20 Blood Pressure 126/60 Pulse Oximetry Intake & Output 08/22/17 08/23/17 08/23/17 18:59 06:59 18:59 Intake Total 450 / 450 100 / 100 Balance 450 / 450 100 / 100 Intake: IV 450 / 450 100 / 100 Azithromycin Inj 500 MG In NS 250 / 250 Inj 250 ML @ 250 mls/hr IV.SIG Q24H [facility] Rx#:[id number] Azactam Inj 2 GM In NS Inj 100 200 / 200 100 / 100 ML @ 200 mls/hr IV.SIG Q8H [facility] Rx#:[id number] Other: # Urine Diapers 2 Date of Last Bowel Movement 08/21/17 Narrative: GENERAL: Frail and elderly female, gets short of breath with long sentences. CARDIOVASCULAR: Normal rate and regular rhythm without murmurs, gallops, or rubs. RESPIRATORY: Air movement is fair. Diffuse rhonchi throughout. Wet cough. GASTROINTESTINAL: Abdomen soft, non-tender, non-distended. Normal active bowel sounds MUSCULOSKELETAL: Extremities without cyanosis, or edema. NEURO: Alert & Oriented x4 to person, place, time, situation. Moves all ext x4 Psych: somewhat anxious Results - Labs CBC & Chem 7: 08/22/17 05:25 08/22/17 05:25 Microbiology 08/21/17 06:30 Blood - Peripheral Aerobic Blood Culture - Preliminary No growth in 2 days 08/21/17 06:30 Blood - Peripheral Anaerobic Blood Culture - Preliminary No growth in 2 days 08/21/17 06:25 Blood - Peripheral Aerobic Blood Culture - Preliminary No growth in 2 days 08/21/17 06:25 Blood - Peripheral Anaerobic Blood Culture - Preliminary No growth in 2 days Assessment and Plan - Plan 81-year-old female admitted for healthcare associated pneumonia after outpatient treatment failure (?resistance) Healthcare associated pneumonia Outpatient treatment failure Suspected resistance Penicillin allergy present Continue azithromycin and aztreonam supplemental oxygen as needed. ID following. Continue antibiotics. Follow blood cultures and sputum cultures. Advised nursing to send sputum for culture. COPD Hypoxia Suspect COPD is contributing to shortness of breath currently. Continue breathing treatments as needed Continue oxygen as needed Increase steroids to 40 mg PO daily Mucinex Consult pulmonology for assistance. Subacute right leg fracture Patient was in PT as an outpatient at a halfway facility Continue PT here. Suspect she will need to return to SNF for further rehabilitation. Hypertension Continue baseline treatment Follow blood pressures Adjust treatments as needed General anxiety disorder Ativan as needed. DVT prophylaxis Lovenox
--- NOTE | 2017-08-23 15:50 | MB ---
cc: Chelsea Tran MD DATE: 08/23/2017 REASON FOR CONSULTATION: COPD exacerbation and pneumonia. HISTORY OF PRESENT ILLNESS: Mrs. Hayes is an 81-year-old female who has complaints of congestion, shortness of breath, cough with expectoration of whitish, occasionally yellowish sputum. Denies history of fever, chills or hemoptysis. Has no history of TB or industrial exposure. Has known history of COPD, uses Symbicort at home. Has been short of breath for over a week now, tells me since she had her hip fracture repaired on 07/05/2017 and subsequently has not really returned to baseline. PAST MEDICAL HISTORY: 1. COPD. 2. Hypertension. 3. Mood disorder. 4. Recent hip fracture, previous left leg fracture and right wrist fracture. MEDICATIONS: 1. Aztreonam. 2. Zithromax. 3. Nebulized Albuterol. 4. Baclofen. 5. Lasix. 6. Lorazepam as needed. 7. Lopressor. 8. Prednisone 20 mg a day. 9/ Restoril at bedtime p.r.n. ALLERGIES: PENICILLIN. FAMILY HISTORY: Noncontributory. SOCIAL HISTORY: Remote smoking history, does not smoke at present. REVIEW OF SYSTEMS: A 12-point review of systems as per HPI and past history, otherwise negative. PHYSICAL EXAMINATION: GENERAL: The patient is alert. VITAL SIGNS: Temperature 98.6, pulse 86, respiration 18, blood pressure 134/62. Oxygen saturation 94% on O2 via nasal cannula. HEENT/NECK: Unremarkable. Eyes without icterus. Neck without adenopathy or thyroid enlargement. Growth on the right side of the nose. The patient states has been there for 4 months or so and getting bigger. CHEST: Scattered coarse rhonchi bilaterally. CARDIAC: PMI not appreciated. S1, S2 audible. No murmur. No rub. ABDOMEN: Lax, audible bowel sounds. EXTREMITIES: No clubbing, cyanosis or edema. LABORATORY DATA: White count 11,000, hemoglobin 9, hematocrit 27. Sodium 138, potassium 4.2, BUN 24, creatinine 1.0. Chest x-ray: Bibasilar lung infiltrates and/or atelectatic change. IMPRESSION: 1. Chronic obstructive pulmonary disease exacerbation. 2. Pneumonia. 3. Growth right side of the nose. PLAN: 1. The patient will be maintained on oxygen therapy as needed. 2. Bronchodilators will be given. 3. Chest x-ray will be followed. 4. Continue antibiotic therapy per ID. I do thank you for asking me to partake in Mrs. Hayes's care. Chelsea Tran MD WWW/TL , 03:27 PM , 03:48 PM
[2017-08-23] MEDS: Azithromycin Inj 500 MG in Sodium Chlor 0.9% Inj 250 ML IV.SIG SCH (18:22)
[2017-08-23] MEDS: Temazepam 15 MG Capsule PO PRN (21:12)
[2017-08-24] MEDS: Heparin - SQ 10,000 UNITS/ML Vial SQ SCH ×2 (06:49→18:26)
[2017-08-24] MEDS: Aztreonam Inj 2 GM in Sodium Chloride 0.9% Inj 100 ML IV.SIG SCH ×2 (06:49→16:11)
[2017-08-24] MEDS: Tiotropium Bromide 18 MCG/ACT Inhaler INH SCH (09:18)
[2017-08-24] MEDS: Lactobacillus Acidophilus/L. Spores Tablet PO SCH ×3 (09:19→18:25)
[2017-08-24] MEDS: Calcium Carbonate 500 MG Tablet PO SCH ×2 (09:19→22:10)
[2017-08-24] MEDS: Vitamin B Complex/Vit C/Folic Tablet PO SCH (09:19)
[2017-08-24] MEDS: predniSONE 20 MG Tablet PO SCH (09:19)
[2017-08-24] MEDS: Metoprolol Tartrate 50 MG Tablet PO SCH ×2 (09:19→22:12)
[2017-08-24] MEDS: amLODIPine 10 MG Tablet PO SCH (09:19)
[2017-08-24] MEDS: Baclofen 10 MG Tablet PO SCH ×2 (09:19→22:08)
[2017-08-24] MEDS: Senna/Docusate Sodium 8.6/50 MG Tablet PO SCH ×2 (09:20→22:10)
[2017-08-24] MEDS: Furosemide 40 MG Tablet PO SCH (09:20)
--- NOTE | 2017-08-24 11:49 | P.PNID ---
Subjective Remarks: Patient has dyspnea. breathing is worse. Now on 6 liters O2 via nasal cannula. Afebrile. Still has cough but not bringing up sputum. Sample of sputum sent to lab yesterday. Pending result. Admitted with SOB from rehab facility. Consult requested for pneumonia. Antibiotics: Azithromycin. Aztreonam. Lines: peripheral IV intact Past Medical History: Chronic obstructive pulmonary disease, hypertension, anxiety disorder, right hip fracture, left leg fracture, status post ORIF on 07/05/2017, right wrist fracture. Allergies/Adverse Reactions: Allergies Penicillins Allergy (Intermediate, Verified 08/21/17 03:53) Blister Objective Vital Signs 08/23/17 11:54 08/23/17 12:00 08/23/17 15:57 Temperature 95.8 F L 96.6 F L Pulse Rate 80 91 H 96 H Respiratory Rate 24 20 20 Blood Pressure 126/60 116/55 L Pulse Oximetry 89 L 08/23/17 16:42 08/23/17 20:00 08/23/17 21:34 Temperature 97.8 F Pulse Rate 104 H 90 90 Respiratory Rate 16 15 18 Blood Pressure 147/71 H Pulse Oximetry 87 L 08/23/17 23:58 08/24/17 04:00 08/24/17 08:00 Temperature 97.9 F 97.8 F 98.2 F Pulse Rate 80 78 85 Respiratory Rate 16 17 18 Blood Pressure 194/86 H 177/79 H 184/78 H Pulse Oximetry 93 L 91 L 89 L 08/24/17 10:02 08/24/17 10:04 Temperature Pulse Rate 88 Respiratory Rate Blood Pressure Pulse Oximetry 92 L Intake & Output 08/23/17 08/24/17 08/24/17 18:59 06:59 18:59 Intake Total 580 / 580 450 / 450 100 / 100 Output Total 4 / 4 Balance 576 / 576 450 / 450 100 / 100 Intake: IV 100 / 100 450 / 450 100 / 100 Azithromycin Inj 500 MG In NS 250 / 250 Inj 250 ML @ 250 mls/hr IV.SIG Q24H [facility] Rx#:[id number] Azactam Inj 2 GM In NS Inj 100 100 / 100 200 / 200 100 / 100 ML @ 200 mls/hr IV.SIG Q8H [facility] Rx#:[id number] Oral 480 / 480 Output: Urine 4 / 4 Stool 0 / 0 Other: Date of Last Bowel Movement 08/23/17 08/23/17 08/21/17 06:30 Blood - Peripheral Aerobic Blood Culture - Preliminary No growth in 3 days 08/21/17 06:30 Blood - Peripheral Anaerobic Blood Culture - Preliminary No growth in 3 days 08/21/17 06:25 Blood - Peripheral Aerobic Blood Culture - Preliminary No growth in 3 days 08/21/17 06:25 Blood - Peripheral Anaerobic Blood Culture - Preliminary No growth in 3 days 08/23/17 21:15 Sputum - Expectorated Sputum Gram Stain - Final 08/23/17 21:15 Sputum - Expectorated Sputum Sputum Culture - Pending Imaging: ITS Impressions Chest CTA 08/21/17 00:00 CONCLUSION: 1. Left lower lobe consolidation and patchy infiltrate right upper lobe. 2. Small left pleural effusion. 3. Mild emphysema without mass. 4. No evidence for pulmonary embolism. 5. Coronary artery calcifications. 6. Multiple hepatic low densities. 7. Extensive calcification of the upper abdominal aorta. Chest X-Ray 08/21/17 03:59 CONCLUSION: Left lower lobe pulmonary consolidation versus atelectasis and possible small left pleural effusion. Physical Exam: PHYSICAL EXAMINATION: GENERAL: Frail. Dyspneic. HEENT: Head is atraumatic. Extraocular movements grossly intact. Pupils reactive to light. No icterus. Oropharynx moist mucosa without lesions. NECK: Supple. No adenopathy. LUNGS: Coarse bilateral rhonchi persist. (+) wheezing. HEART: Regular S1, S2. No audible murmurs, rubs or gallops. ABDOMEN: Bowel sounds present. Soft, nontender. No masses palpable. EXTREMITIES: No clubbing or cyanosis. Multiple ecchymotic lesions of the legs and upper extremities. No clubbing, cyanosis or edema. SKIN: No diffuse rash. NEUROLOGIC: Alert and oriented. No gross focal findings. PSYCHIATRIC: Mood is appropriate. Calm and cooperative. Assessment and Plan - Plan IMPRESSION: 1. Pneumonia involving both lower lobes of the lung. 2. Status post fracture of the right leg. 3. History of chronic obstructive pulmonary disease. 4. PENICILLIN ALLERGY. Does not seem to have improved over yesterday. RECOMMENDATIONS: 1. Continue aztreonam. 2. Continue azithromycin. 3. Add levaquin. 4. Monitor sputum culture. 5. Monitor the blood cultures. 6. Send new cultures when bronchoscopy is performed. 7. Monitor clinical status.
--- NOTE | 2017-08-24 11:49 | P.PNIM ---
Subjective Interval history: Patient still reports shortness of breath. No chest pain. Cough is more loose. Physical Exam Vital signs: Vital Signs 08/23/17 11:54 08/23/17 12:00 08/23/17 15:57 Temperature 95.8 F L 96.6 F L Pulse Rate 80 91 H 96 H Respiratory Rate 24 20 20 Blood Pressure 126/60 116/55 L Pulse Oximetry 89 L 08/23/17 16:42 08/23/17 20:00 08/23/17 21:34 Temperature 97.8 F Pulse Rate 104 H 90 90 Respiratory Rate 16 15 18 Blood Pressure 147/71 H Pulse Oximetry 87 L 08/23/17 23:58 08/24/17 04:00 08/24/17 08:00 Temperature 97.9 F 97.8 F 98.2 F Pulse Rate 80 78 85 Respiratory Rate 16 17 18 Blood Pressure 194/86 H 177/79 H 184/78 H Pulse Oximetry 93 L 91 L 89 L 08/24/17 10:02 08/24/17 10:04 Temperature Pulse Rate 88 Respiratory Rate Blood Pressure Pulse Oximetry 92 L Intake & Output 08/23/17 08/24/17 08/24/17 18:59 06:59 18:59 Intake Total 580 / 580 450 / 450 100 / 100 Output Total 4 / 4 Balance 576 / 576 450 / 450 100 / 100 Intake: IV 100 / 100 450 / 450 100 / 100 Azithromycin Inj 500 MG In NS 250 / 250 Inj 250 ML @ 250 mls/hr IV.SIG Q24H KAYLA Rx#:[id number] Azactam Inj 2 GM In NS Inj 100 100 / 100 200 / 200 100 / 100 ML @ 200 mls/hr IV.SIG Q8H KAYLA Rx#:[id number] Oral 480 / 480 Output: Urine 4 / 4 Stool 0 / 0 Other: Date of Last Bowel Movement 08/23/17 08/23/17 Narrative: GENERAL: Frail and elderly female, gets short of breath with long sentences. CARDIOVASCULAR: Normal rate and regular rhythm without murmurs, gallops, or rubs. RESPIRATORY: Better air movement today. Faint rhonchi diffusely. No wheezing. GASTROINTESTINAL: Abdomen soft, non-tender, non-distended. Normal active bowel sounds MUSCULOSKELETAL: Extremities without cyanosis, or edema. NEURO: Alert & Oriented x4 to person, place, time, situation. Moves all ext x4. Generalized weakness Psych: somewhat anxious Results - Labs CBC & Chem 7: 08/22/17 05:25 08/22/17 05:25 Microbiology 08/21/17 06:30 Blood - Peripheral Aerobic Blood Culture - Preliminary No growth in 3 days 08/21/17 06:30 Blood - Peripheral Anaerobic Blood Culture - Preliminary No growth in 3 days 08/21/17 06:25 Blood - Peripheral Aerobic Blood Culture - Preliminary No growth in 3 days 08/21/17 06:25 Blood - Peripheral Anaerobic Blood Culture - Preliminary No growth in 3 days 08/23/17 21:15 Sputum - Expectorated Sputum Gram Stain - Final Assessment and Plan - Plan 81-year-old female admitted for healthcare associated pneumonia after outpatient treatment failure (?resistance) Healthcare associated pneumonia Outpatient treatment failure Suspected resistance Penicillin allergy present Continue azithromycin and aztreonam supplemental oxygen as needed. ID following. Continue antibiotics. Follow blood cultures and sputum cultures. COPD Hypoxia Suspect COPD is contributing to shortness of breath currently. Continue breathing treatments as needed Continue oxygen as needed Prednisone 40 mg PO daily Mucinex Appreciate pulmonology following. Subacute right leg fracture/debility Patient was in PT as an outpatient at a correction facility Continue PT here. Suspect she will need to return to SNF for further rehabilitation. Hypertension Continue baseline treatment Follow blood pressures Adjust treatments as needed General anxiety disorder Ativan as needed. DVT prophylaxis Lovenox Discharge Planning: Suspect she would benefit from a couple more days of IV antibiotics. Repeat chest x-ray in a.m. Appreciate input from ID and pulmonology.
[2017-08-24] MEDS: Levofloxacin 500 mg Premix Inj 500 MG/100 ML PIGGYBACK IV.SIG SCH (13:45)
--- NOTE | 2017-08-24 15:19 | P.PN ---
Subjective Interval history: ALERT COUGH THICK MUCOID SECREATION DIFFICULT TO EXPECTORATE Physical Exam Vital signs: Vital Signs 08/23/17 15:57 08/23/17 16:42 08/23/17 20:00 Temperature 96.6 F L 97.8 F Pulse Rate 96 H 104 H 90 Respiratory Rate 20 16 15 Blood Pressure 116/55 L 147/71 H Pulse Oximetry 89 L 87 L 08/23/17 21:34 08/23/17 23:58 08/24/17 04:00 Temperature 97.9 F 97.8 F Pulse Rate 90 80 78 Respiratory Rate 18 16 17 Blood Pressure 194/86 H 177/79 H Pulse Oximetry 93 L 91 L 08/24/17 08:00 08/24/17 10:02 08/24/17 10:04 Temperature 98.2 F Pulse Rate 85 88 Respiratory Rate 18 Blood Pressure 184/78 H Pulse Oximetry 89 L 92 L 08/24/17 12:00 Temperature 97.5 F L Pulse Rate 95 H Respiratory Rate 18 Blood Pressure 114/57 L Pulse Oximetry 90 L Intake & Output 08/23/17 08/24/17 08/24/17 18:59 06:59 18:59 Intake Total 580 / 580 450 / 450 100 / 100 Output Total 4 / 4 Balance 576 / 576 450 / 450 100 / 100 Intake: IV 100 / 100 450 / 450 100 / 100 Azithromycin Inj 500 MG In NS 250 / 250 Inj 250 ML @ 250 mls/hr IV.SIG Q24H KAYLA Rx#:[id number] Azactam Inj 2 GM In NS Inj 100 100 / 100 200 / 200 100 / 100 ML @ 200 mls/hr IV.SIG Q8H KAYLA Rx#:[id number] Oral 480 / 480 Output: Urine 4 / 4 Stool 0 / 0 Other: Date of Last Bowel Movement 08/23/17 08/23/17 Narrative: GENERAL: Frail and elderly female, gets short of breath with long sentences. CARDIOVASCULAR: Normal rate and regular rhythm without murmurs, gallops, or rubs. RESPIRATORY: Better air movement today. Faint rhonchi diffusely. No wheezing. GASTROINTESTINAL: Abdomen soft, non-tender, non-distended. Normal active bowel sounds MUSCULOSKELETAL: Extremities without cyanosis, or edema. NEURO: Alert & Oriented x4 to person, place, time, situation. Moves all ext x4. Generalized weakness Psych: somewhat anxious Results - Labs CBC & Chem 7: 08/22/17 05:25 08/22/17 05:25 Microbiology 08/23/17 21:15 Sputum - Expectorated Sputum Gram Stain - Final 08/23/17 21:15 Sputum - Expectorated Sputum Sputum Culture - Preliminary Results Pending 08/21/17 06:30 Blood - Peripheral Aerobic Blood Culture - Preliminary No growth in 3 days 08/21/17 06:30 Blood - Peripheral Anaerobic Blood Culture - Preliminary No growth in 3 days 08/21/17 06:25 Blood - Peripheral Aerobic Blood Culture - Preliminary No growth in 3 days 08/21/17 06:25 Blood - Peripheral Anaerobic Blood Culture - Preliminary No growth in 3 days Assessment and Plan - Plan O2 NEEDED BRONCHODILATOR THERAPY ANTIBX BRONCHOSCOPY AM FOR MUCUS PLUGGING
[2017-08-24 20:17] LABS: Baso % (Auto) 0.2 % (0.0-2.0); Eos % (Auto) 0.1 % (0.0-4.0); Hematocrit 26.1 % (35.0-46.0); Hemoglobin 8.7 gm/dL (11.6-15.3); Lymph # (Auto) 0.4 th/mm3 (1.0-4.8); Lymph % (Auto) 3.1 % (9.0-44.0); Mean Corpuscular HGB Conc 33.5 % (32.0-36.0); Mean Corpuscular Hemoglobin 29.7 pg (27.0-34.0); Mean Corpuscular Volume 88.7 fL (80.0-100.0); Mean Platelet Volume 8.2 fL (7.0-11.0); Mono # (Auto) 0.2 th/mm3 (0.0-0.9); Neut # (Auto) 10.9 th/mm3 (1.8-7.7); Neut % (Auto) 94.6 % (16.0-70.0); Platelet Count 261 th/mm3 (150-450); Red Blood Count 2.94 mil/mm3 (4.00-5.30); Red Cell Distribution Width 14.5 % (11.6-17.2); White Blood Count 11.5 th/mm3 (4.0-11.0)
[2017-08-24 20:24] LABS: Activated Partial Thrombo Time 29.1 sec (24.3-30.1); INR 1.1 Ratio; Prothrombin Time 10.8 sec (9.8-11.6)
[2017-08-24] MEDS: Temazepam 15 MG Capsule PO PRN (22:11)
[2017-08-25] MEDS: Aztreonam Inj 2 GM in Sodium Chloride 0.9% Inj 100 ML IV.SIG SCH ×3 (05:16→23:00)
[2017-08-25] MEDS: Heparin - SQ 10,000 UNITS/ML Vial SQ SCH ×2 (06:38→22:16)
--- NOTE | 2017-08-25 06:45 | XR ---
EXAM DATE: 08/25/2017 6:23 AM EDT AGE/SEX: 81 years / Female INDICATIONS: Short of breath. CLINICAL DATA: This is the patient's subsequent encounter. Patient reports that signs and symptoms h ave been present for 4 - 6 days and indicates a pain score of 0/10. MEDICAL/SURGICAL HISTORY: Chronic obstructive pulmonary disease. Hypertension. None. COMPARISON: [facility] – [place], CHEST 1V SINGLE AP, 08/21/2017. . FINDINGS: Small left pleural effusion with associated airspace disease in the left lower lung zone. Cardiomegal y saw contours are stable. Bony thorax is intact. CONCLUSION: 1. No significant interval change. 2. Stable small left pleural effusion and associated left lower lobe airspace consolidation. Electronically signed by: Jean Fuchs MD 08/25/2017 6:44 AM EDT
[2017-08-25] MEDS ORDERED: Metoprolol Tartrate 25 MG Tablet PO SCH (09:00)
[2017-08-25] MEDS ORDERED: Sodium Chlor 0.9% Inj 500 ML IV.SIG SCH (09:00)
[2017-08-25] MEDS ORDERED: Chlorhexidine Gluconate 2% 1 Pack (2 Cloths) TOPICAL SCH (09:00)
[2017-08-25 09:03] LABS: Hematocrit 24.7 % (35.0-46.0); Hemoglobin 8.5 gm/dL (11.6-15.3); Mean Corpuscular HGB Conc 34.2 % (32.0-36.0); Mean Corpuscular Hemoglobin 30.4 pg (27.0-34.0); Mean Platelet Volume 8.1 fL (7.0-11.0); Platelet Count 244 th/mm3 (150-450); Red Blood Count 2.78 mil/mm3 (4.00-5.30); Red Cell Distribution Width 14.4 % (11.6-17.2); White Blood Count 10.6 th/mm3 (4.0-11.0)
--- NOTE | 2017-08-25 09:51 | MP ---
cc: Chelsea Tran MD DATE OF OPERATION: PROCEDURE PERFORMED: Fiberoptic bronchoscopy, flexible. REASON FOR BRONCHOSCOPY: Respiratory failure, mucous plugging. PROCEDURE: Fiberoptic bronchoscopy performed via LMA. Vocal cords intact. Trachea moderately hyperemic. [place] sharp. Right main stem bronchus, right upper, middle, and lower lobe, left main bronchus, left upper and lower lobes all inspected. Thick mucus plugs removed throughout the tracheobronchial tree. All plugs were removed. Washings were obtained from both sides of the tracheobronchial tree for routine TB, fungal cultures as well as cytological exam. Procedure well tolerated. The patient was transferred to Recovery in stable condition. IMPRESSION: 1. Mild tracheobronchitis. 2. Excess mucoid secretion and plugging. 3. Samples obtained as above. 4. Procedure well tolerated. 5. The patient was transferred to recovery in stable condition. Chelsea Tran MD WWW/TODD , 09:37 AM , 09:50 AM
[2017-08-25 09:52] LABS: Calcium 8.8 mg/dL (8.5-10.1)
--- NOTE | 2017-08-25 09:54 | P.PN ---
Subjective Interval history: ALERT CONGESTED NAD Physical Exam Vital signs: Vital Signs 08/24/17 10:02 08/24/17 10:04 08/24/17 12:00 Temperature 97.5 F L Pulse Rate 88 95 H Respiratory Rate 18 Blood Pressure 114/57 L Pulse Oximetry 92 L 90 L 08/24/17 16:00 08/24/17 18:38 08/24/17 20:00 Temperature 97.8 F 98.3 F Pulse Rate 87 87 94 H Respiratory Rate 18 18 16 Blood Pressure 132/60 170/79 H Pulse Oximetry 91 L 89 L 08/24/17 22:28 08/25/17 00:21 08/25/17 04:11 Temperature 96.9 F L 97.5 F L Pulse Rate 89 81 80 Respiratory Rate 24 18 Blood Pressure 148/70 H 175/76 H Pulse Oximetry 92 L 94 L 90 L 08/25/17 07:17 08/25/17 07:19 08/25/17 07:50 Temperature 97.7 F Pulse Rate 91 H 95 H Respiratory Rate 24 18 Blood Pressure 161/68 H Pulse Oximetry 94 L 91 L 08/25/17 08:00 Temperature Pulse Rate Respiratory Rate Blood Pressure Pulse Oximetry 81 L Intake & Output 08/24/17 08/25/17 08/25/17 18:59 06:59 18:59 Intake Total 300 / 300 Output Total 900 / 900 100 / 100 Balance -600 / -600 -100 / -100 Intake: IV 300 / 300 Azactam Inj 2 GM In NS Inj 100 200 / 200 ML @ 200 mls/hr IV.SIG Q8H KAYLA Rx#:[id number] Levaquin 500 mg Premix Inj 500 100 / 100 mg In 100 ml @ 100 mls/hr IV. SIG Q24H KAYLA Rx#:[id number] Output: Urine 900 / 900 100 / 100 Other: Date of Last Bowel Movement 08/24/17 08/24/17 # Bowel Movements 1 Narrative: GENERAL: Frail and elderly female, gets short of breath with long sentences. CARDIOVASCULAR: Normal rate and regular rhythm without murmurs, gallops, or rubs. RESPIRATORY: Better air movement today. Faint rhonchi diffusely. No wheezing. GASTROINTESTINAL: Abdomen soft, non-tender, non-distended. Normal active bowel sounds MUSCULOSKELETAL: Extremities without cyanosis, or edema. NEURO: Alert & Oriented x4 to person, place, time, situation. Moves all ext x4. Generalized weakness Psych: somewhat anxious Results - Labs CBC & Chem 7: 08/25/17 08:50 08/22/17 05:25 Laboratory Results - last 24 hr 08/24/17 08/24/17 08/25/17 19:45 19:45 08:50 WBC 11.5 H 10.6 RBC 2.94 L 2.78 L Hgb 8.7 L 8.5 L Hct 26.1 L 24.7 L MCV 88.7 89.0 MCH 29.7 30.4 MCHC 33.5 34.2 RDW 14.5 14.4 Plt Count 261 244 MPV 8.2 8.1 Neut % (Auto) 94.6 H Lymph % (Auto) 3.1 L [place] % (Auto) 2.0 Eos % (Auto) 0.1 Baso % (Auto) 0.2 Neut # (Auto) 10.9 H Lymph # (Auto) 0.4 L [place] # (Auto) 0.2 Eos # (Auto) 0.0 Baso # (Auto) 0.0 WBC Differential . Differential Comment Auto diff final PT 10.8 INR 1.1 APTT 29.1 Microbiology 08/23/17 21:15 Sputum - Expectorated Sputum Gram Stain - Final 08/23/17 21:15 Sputum - Expectorated Sputum Sputum Culture - Preliminary Results Pending 08/21/17 06:30 Blood - Peripheral Aerobic Blood Culture - Preliminary No growth in 3 days 08/21/17 06:30 Blood - Peripheral Anaerobic Blood Culture - Preliminary No growth in 3 days 08/21/17 06:25 Blood - Peripheral Aerobic Blood Culture - Preliminary No growth in 3 days 08/21/17 06:25 Blood - Peripheral Anaerobic Blood Culture - Preliminary No growth in 3 days - Imaging Impressions Chest X-Ray 08/25/17 06:00 CONCLUSION: 1. No significant interval change. 2. Stable small left pleural effusion and associated left lower lobe airspace consolidation. Assessment and Plan - Plan O2 NEEDED BRONCHODILATOR THERAPY ANTIBX BRONCHOSCOPY TODAY
[2017-08-25 10:06] LABS: Potassium 2.9 meq/L (3.5-5.1)
[2017-08-25] MEDS: Potassium Chlor 20 mEq Premix 20 MEQ/100 ML PIGGYBACK IV.SIG SCH ×2 (10:46→13:12)
[2017-08-25 11:45] LABS: ABG Base Excess 7.8 mmol/L (-2-2); ABG PCO2 47 mmHg (38-42); ABG PO2 60 mmHG (61-120)
--- NOTE | 2017-08-25 12:18 | XR ---
EXAM DATE: 08/25/2017 12:12 PM EDT AGE/SEX: 81 years / Female INDICATIONS: Shortness of breath. CLINICAL DATA: This is the patient's subsequent encounter. Patient reports that signs and symptoms h ave been present for 1 day and indicates a pain score of 0/10. MEDICAL/SURGICAL HISTORY: . Chronic obstructive pulmonary disease. Hypertension. None. COMPARISON: [facility] – [place], CHEST 1V SINGLE AP, 08/25/2017. . FINDINGS: The heart size is normal. This increased density at the bases bilaterally. The mid and upper lungs ar e fairly clear. There is some blunting of the costophrenic angles. CONCLUSION: Bibasilar areas of suspected atelectasis or consolidation. There may be mild bilateral pleural effusi ons. Electronically signed by: Brad Méndez MD 08/25/2017 12:16 PM EDT
[2017-08-25] MEDS: LORazepam 1 MG Tablet PO PRN (13:06)
[2017-08-25] MEDS ORDERED: MethylPREDNISolone Sod Suc Inj 250 MG in Sodium Chlor 0.9% Inj 100 ML IV.SIG ONE (13:58)
--- NOTE | 2017-08-25 14:00 | P.PNIM ---
Subjective Interval history: Patient seen in the PACU. Still having some respiratory distress, has been weaned off BiPAP. Currently using facemask. Physical Exam Vital signs: Vital Signs 08/24/17 16:00 08/24/17 18:38 08/24/17 20:00 Temperature 97.8 F 98.3 F Pulse Rate 87 87 94 H Respiratory Rate 18 18 16 Blood Pressure 132/60 170/79 H Pulse Oximetry 91 L 89 L 08/24/17 22:28 08/25/17 00:21 08/25/17 04:11 Temperature 96.9 F L 97.5 F L Pulse Rate 89 81 80 Respiratory Rate 24 18 Blood Pressure 148/70 H 175/76 H Pulse Oximetry 92 L 94 L 90 L 08/25/17 07:17 08/25/17 07:19 08/25/17 07:50 Temperature 97.7 F Pulse Rate 91 H 95 H Respiratory Rate 24 18 Blood Pressure 161/68 H Pulse Oximetry 94 L 91 L 08/25/17 08:00 08/25/17 09:56 08/25/17 10:00 Temperature 97.1 F L Pulse Rate 100 H 103 H Respiratory Rate 30 H 32 H Blood Pressure 151/72 H 141/81 H Pulse Oximetry 81 L 88 L 89 L 08/25/17 10:10 08/25/17 10:15 08/25/17 10:22 Temperature Pulse Rate 102 H 101 H Respiratory Rate 31 H 30 H Blood Pressure 153/87 H Pulse Oximetry 88 L 88 L 08/25/17 10:30 08/25/17 10:45 08/25/17 10:56 Temperature Pulse Rate 98 H 101 H 100 H Respiratory Rate 28 H 29 H 33 H Blood Pressure 148/81 H 158/74 H Pulse Oximetry 87 L 88 L 92 L 08/25/17 11:00 08/25/17 11:15 08/25/17 11:30 Temperature Pulse Rate 99 H 98 H 97 H Respiratory Rate 28 H 28 H 23 Blood Pressure 157/75 H 140/65 148/67 H Pulse Oximetry 87 L 88 L 88 L 08/25/17 11:45 08/25/17 12:00 08/25/17 13:14 Temperature Pulse Rate 98 H 97 H Respiratory Rate Blood Pressure 148/69 H 157/76 H Pulse Oximetry 98 94 L Intake & Output 08/24/17 08/25/1708/25/18 18:59 06:59 18:59 Intake Total 300 / 300 100 / 100 Output Total 900 / 900 100 / 100 Balance -600 / -600 -100 / -100 100 / 100 Intake: IV 300 / 300 100 / 100 Azactam Inj 2 GM In NS Inj 100 200 / 200 ML @ 200 mls/hr IV.SIG Q8H KAYLA Rx#:[id number] Levaquin 500 mg Premix Inj 500 100 / 100 mg In 100 ml @ 100 mls/hr IV. SIG Q24H KAYLA Rx#:[id number] KCl 20 mEq Premix Inj 20 meq In 100 / 100 100 ml @ 50 mls/hr IV.SIG Q2H KAYLA Rx#:[id number] Output: Urine 900 / 900 100 / 100 Other: Date of Last Bowel Movement 08/24/17 08/24/17 # Bowel Movements 1 Narrative: GENERAL: Frail and elderly female, on facemask, cannot use long sentences due to shortness of breath. CARDIOVASCULAR: Normal rate and regular rhythm without murmurs, gallops, or rubs. RESPIRATORY: Patient has diffuse rhonchi throughout. Air movement is poor. GASTROINTESTINAL: Abdomen soft, non-tender, non-distended. Normal active bowel sounds MUSCULOSKELETAL: Extremities without cyanosis, or edema. NEURO: Alert & Oriented Psych: Anxious Results - Labs CBC & Chem 7: 08/25/17 08:50 08/25/17 08:50 Laboratory Results - last 24 hr 08/24/17 08/24/17 08/25/17 19:45 19:45 08:50 WBC 11.5 H 10.6 RBC 2.94 L 2.78 L Hgb 8.7 L 8.5 L Hct 26.1 L 24.7 L MCV 88.7 89.0 MCH 29.7 30.4 MCHC 33.5 34.2 RDW 14.5 14.4 Plt Count 261 244 MPV 8.2 8.1 Neut % (Auto) 94.6 H Lymph % (Auto) 3.1 L [place] % (Auto) 2.0 Eos % (Auto) 0.1 Baso % (Auto) 0.2 Neut # (Auto) 10.9 H Lymph # (Auto) 0.4 L [place] # (Auto) 0.2 Eos # (Auto) 0.0 Baso # (Auto) 0.0 WBC Differential . Differential Comment Auto diff final PT 10.8 INR 1.1 APTT 29.1 Puncture Site Patient Temperature O2 Saturation ABG pH ABG pCO2 ABG pO2 ABG HCO3 ABG O2 Content ABG Base Excess ABG Methemoglobin Miky Test Hemoglobin Carboxyhemoglobin O2 Delivery Device Vent Setting Inspired O2 Critical Value Sodium Potassium Chloride Carbon Dioxide Anion Gap BUN Creatinine Estimated GFR Random Glucose Calcium 08/25/17 08/25/17 08:50 11:32 WBC RBC Hgb Hct MCV MCH MCHC RDW Plt Count MPV Neut % (Auto) Lymph % (Auto) [place] % (Auto) Eos % (Auto) Baso % (Auto) Neut # (Auto) Lymph # (Auto) [place] # (Auto) Eos # (Auto) Baso # (Auto) WBC Differential Differential Comment PT INR APTT Puncture Site Left radial Patient Temperature 98.6 O2 Saturation 88 L* ABG pH 7.45 H ABG pCO2 47 H ABG pO2 60 L ABG HCO3 32 H ABG O2 Content 10.5 L ABG Base Excess 7.8 H ABG Methemoglobin 1.1 Miky Test Present Hemoglobin 8.4 L Carboxyhemoglobin 1.1 O2 Delivery Device Bipap Vent Setting Ipap 18 epap 8 ps10 Inspired O2 80 Critical Value Yes Sodium 136 Potassium 2.9 L* Chloride 93 L Carbon Dioxide 32.0 Anion Gap 11 BUN 17 Creatinine 0.79 Estimated GFR 70 L Random Glucose 101 Calcium 8.8 Microbiology 08/23/17 21:15 Sputum - Expectorated Sputum Gram Stain - Final 08/23/17 21:15 Sputum - Expectorated Sputum Sputum Culture - Preliminary Heavy growth normal respiratory paul at 24 hours 08/21/17 06:30 Blood - Peripheral Aerobic Blood Culture - Preliminary No growth in 4 days 08/21/17 06:30 Blood - Peripheral Anaerobic Blood Culture - Preliminary No growth in 4 days 08/21/17 06:25 Blood - Peripheral Aerobic Blood Culture - Preliminary No growth in 4 days 08/21/17 06:25 Blood - Peripheral Anaerobic Blood Culture - Preliminary No growth in 4 days - Imaging Impressions Chest X-Ray 08/25/17 00:00 CONCLUSION: Bibasilar areas of suspected atelectasis or consolidation. There may be mild bilateral pleural effusions. Chest X-Ray 08/25/17 06:00 CONCLUSION: 1. No significant interval change. 2. Stable small left pleural effusion and associated left lower lobe airspace consolidation. Assessment and Plan - Plan 81-year-old female admitted for healthcare associated pneumonia after outpatient treatment failure (?resistance). Healthcare associated pneumonia Outpatient treatment failure Suspected resistance Penicillin allergy present Continue azithromycin and aztreonam supplemental oxygen as needed. ID and pulmonology following. Status post bronchoscopy today 08/25/17 which showed mild tracheobronchitis, excess mucoid secretion and plugging.. Patient continues to be in respiratory distress. Transition to IV Solu-Medrol. She has poor cardiopulmonary reserve and frailty due to her age, will transfer to the ICU for close monitoring. Follow blood cultures and sputum cultures. COPD Hypoxia Continue oxygen as needed Switch to Solu-Medrol IV Mucinex Appreciate pulmonology following. Subacute right leg fracture/debility Patient was in PT as an outpatient at a [place] [facility] facility Continue PT here. Suspect she will need to return to SNF for further rehabilitation. Hypertension Continue baseline treatment Follow blood pressures Adjust treatments as needed General anxiety disorder Ativan as needed. DVT prophylaxis Lovenox Discharge Planning: Transfer to ICU today for closer monitoring. High risk for sudden respiratory decompensation.
[2017-08-25] MEDS: Lactobacillus Acidophilus/L. Spores Tablet PO SCH (18:48)
[2017-08-25] MEDS: Baclofen 10 MG Tablet PO SCH (21:23)
[2017-08-25] MEDS: Metoprolol Tartrate 50 MG Tablet PO SCH (21:24)
[2017-08-25] MEDS: Senna/Docusate Sodium 8.6/50 MG Tablet PO SCH (21:24)
[2017-08-25] MEDS: Calcium Carbonate 500 MG Tablet PO SCH (21:24)
[2017-08-25] MEDS: Temazepam 15 MG Capsule PO PRN (21:39)
[2017-08-25] MEDS: MethylPREDNISolone Sod Succinate Inj 40 MG/ML Vial IV.PUSH SCH (22:15)
[2017-08-26] MEDS: MethylPREDNISolone Sod Succinate Inj 40 MG/ML Vial IV.PUSH SCH ×2 (05:19→20:21)
[2017-08-26] MEDS: Calcium Carbonate 500 MG Tablet PO SCH ×2 (10:19→20:22)
[2017-08-26] MEDS: amLODIPine 10 MG Tablet PO SCH (10:19)
[2017-08-26] MEDS: Lactobacillus Acidophilus/L. Spores Tablet PO SCH ×3 (10:19→18:20)
[2017-08-26] MEDS: Furosemide 40 MG Tablet PO SCH (10:19)
[2017-08-26] MEDS: Senna/Docusate Sodium 8.6/50 MG Tablet PO SCH ×2 (10:19→20:22)
[2017-08-26] MEDS: Vitamin B Complex/Vit C/Folic Tablet PO SCH (10:20)
[2017-08-26] MEDS: Metoprolol Tartrate 50 MG Tablet PO SCH ×2 (10:20→20:22)
[2017-08-26] MEDS: Baclofen 10 MG Tablet PO SCH ×2 (10:20→20:22)
[2017-08-26] MEDS: Tiotropium Bromide 18 MCG/ACT Inhaler INH SCH (10:23)
--- NOTE | 2017-08-26 11:17 | P.PNIM ---
Subjective Interval history: States that she wants to eat regular food and not a cardiac diet. Her breathing is much better compared to yesterday. She is usually on 2 L of oxygen at home. She is willing to go to [place] [facility] after this hospitalization. She reports no significant coughing. No active shortness of breath or chest pain at this time. Physical Exam Vital signs: Vital Signs 08/25/17 11:15 08/25/17 11:30 08/25/17 11:45 Temperature Pulse Rate 98 H 97 H 98 H Respiratory Rate 28 H 23 Blood Pressure 140/65 148/67 H 148/69 H Pulse Oximetry 88 L 88 L 98 08/25/17 12:00 08/25/17 12:45 08/25/17 13:00 Temperature Pulse Rate 97 H 100 H Respiratory Rate 28 H Blood Pressure 157/76 H 154/74 H Pulse Oximetry 92 L 93 L 08/25/17 13:14 08/25/17 14:00 08/25/17 15:00 Temperature Pulse Rate 99 H 95 H Respiratory Rate 27 H Blood Pressure 151/72 H 148/74 H Pulse Oximetry 94 L 94 L 95 08/25/17 16:00 08/25/17 17:00 08/25/17 19:56 Temperature 98.3 F Pulse Rate 102 H 95 H Respiratory Rate 31 H Blood Pressure 142/65 H 158/74 H Pulse Oximetry 96 95 95 08/25/17 20:00 08/26/17 00:00 08/26/17 04:00 Temperature 97.9 F 98.4 F 97.8 F Pulse Rate 100 H 87 77 Respiratory Rate 20 22 16 Blood Pressure 170/79 H 188/85 H 160/81 H Pulse Oximetry 96 95 95 Intake & Output 08/25/17 08/26/17 08/26/17 18:59 06:59 18:59 Intake Total 200 / 200 0 / 0 Output Total 350 / 350 Balance -150 / -150 0 / 0 Intake: IV 200 / 200 Azactam Inj 2 GM In NS Inj 100 100 / 100 ML @ 200 mls/hr IV.SIG Q8H KAYLA Rx#:[id number] KCl 20 mEq Premix Inj 20 meq In 100 / 100 100 ml @ 50 mls/hr IV.SIG Q2H KAYLA Rx#:[id number] Oral 0 / 0 Output: Urine 350 / 350 Other: # Voids 1 # Incontinent Voids 2 1 # Urine Diapers 1 Date of Last Bowel Movement 08/24/17 08/24/17 08/24/17 Narrative: GENERAL: Frail and elderly female, on nasal cannula in no acute distress CARDIOVASCULAR: Normal rate and regular rhythm without murmurs, gallops, or rubs. RESPIRATORY: Few bibasilar crackles and rhonchi GASTROINTESTINAL: Abdomen soft, non-tender, non-distended. Normal active bowel sounds MUSCULOSKELETAL: Extremities without cyanosis, or edema. NEURO: Alert & Oriented To person place time and situation Results - Labs CBC & Chem 7: 08/25/17 08:50 08/25/17 23:41 Laboratory Results - last 24 hr 08/25/17 08/25/17 11:32 23:41 Puncture Site Left radial Patient Temperature 98.6 O2 Saturation 88 L* ABG pH 7.45 H ABG pCO2 47 H ABG pO2 60 L ABG HCO3 32 H ABG O2 Content 10.5 L ABG Base Excess 7.8 H ABG Methemoglobin 1.1 Miky Test Present Hemoglobin 8.4 L Carboxyhemoglobin 1.1 O2 Delivery Device Bipap Vent Setting Ipap 18 epap 8 ps10 Inspired O2 80 Critical Value Yes Potassium 4.1 D Microbiology 08/21/17 06:30 Blood - Peripheral Aerobic Blood Culture - Final No growth in 5 days 08/21/17 06:30 Blood - Peripheral Anaerobic Blood Culture - Final No growth in 5 days 08/21/17 06:25 Blood - Peripheral Aerobic Blood Culture - Final No growth in 5 days 08/21/17 06:25 Blood - Peripheral Anaerobic Blood Culture - Final No growth in 5 days 08/23/17 21:15 Sputum - Expectorated Sputum Gram Stain - Final 08/23/17 21:15 Sputum - Expectorated Sputum Sputum Culture - Final Heavy growth normal respiratory paul 08/25/17 09:25 Bronchial - Bronchial Gram Stain - Final - Imaging Impressions Chest X-Ray 08/25/17 00:00 CONCLUSION: Bibasilar areas of suspected atelectasis or consolidation. There may be mild bilateral pleural effusions. Assessment and Plan - Plan 81-year-old female admitted for healthcare associated pneumonia after outpatient treatment failure. Healthcare associated pneumonia Outpatient treatment failure Suspected resistance Penicillin allergy present Continue azithromycin and aztreonam IV Continue with supplemental oxygen ID and pulmonology following. Status post bronchoscopy 08/25/17 which showed mild tracheobronchitis, excess mucoid secretion and plugging. Follow-up with prompt cultures and sputum cultures. Blood cultures shows no growth to date COPD exacerbation with a history of 2 L O2 dependence Hypoxia Continue oxygen as needed currently on 5 L a wean as tolerated Switch to Solu-Medrol IV and wean as tolerated Mucinex Appreciate pulmonology, Dr. Mendez following. Subacute right leg fracture/debility Patient [facility] Continue PT here. Suspect she will need to return to SNF for further rehabilitation. She is desiring [place] [facility]. Hypertension, chronic essential Continue baseline treatment, currently on Norvasc, will start Vasotec IV as needed for uncontrolled blood pressure Follow blood pressures Adjust treatments as needed General anxiety disorder Ativan as needed. DVT prophylaxis Lovenox
[2017-08-26] MEDS: Aztreonam Inj 2 GM in Sodium Chloride 0.9% Inj 100 ML IV.SIG SCH (16:28)
--- NOTE | 2017-08-26 16:41 | P.PNID ---
Subjective Remarks: Patient reports that she feels better. Appears comfortable. Afebrile. Less cough. Sputum culture has normal paul. Admitted with SOB from rehab facility. Consult requested for pneumonia. Antibiotics: Azithromycin. Aztreonam. Levaquin. Lines: peripheral IV intact Past Medical History: Chronic obstructive pulmonary disease, hypertension, anxiety disorder, right hip fracture, left leg fracture, status post ORIF on 07/05/2017, right wrist fracture. Allergies/Adverse Reactions: Allergies Penicillins Allergy (Intermediate, Verified 08/21/17 03:53) Blister Objective Vital Signs 08/25/17 17:00 08/25/17 19:56 08/25/17 20:00 Temperature 98.3 F 97.9 F Pulse Rate 95 H 100 H Respiratory Rate 20 Blood Pressure 158/74 H 170/79 H Pulse Oximetry 95 95 96 08/26/17 00:00 08/26/17 04:00 08/26/17 08:00 Temperature 98.4 F 97.8 F 98 F Pulse Rate 87 77 76 Respiratory Rate 22 16 17 Blood Pressure 188/85 H 160/81 H 178/79 H Pulse Oximetry 95 95 96 08/26/17 12:00 Temperature 98.2 F Pulse Rate 79 Respiratory Rate 21 Blood Pressure 142/67 H Pulse Oximetry 96 Intake & Output 08/25/17 08/26/17 08/26/17 18:59 06:59 18:59 Intake Total 200 / 200 0 / 0 Output Total 350 / 350 Balance -150 / -150 0 / 0 Intake: IV 200 / 200 Azactam Inj 2 GM In NS Inj 100 100 / 100 ML @ 200 mls/hr IV.SIG Q8H KAYLA Rx#:[id number] KCl 20 mEq Premix Inj 20 meq In 100 / 100 100 ml @ 50 mls/hr IV.SIG Q2H KAYLA Rx#:[id number] Oral 0 / 0 Output: Urine 350 / 350 Other: # Voids 1 # Incontinent Voids 2 1 # Urine Diapers 1 Date of Last Bowel Movement 08/24/17 08/24/17 08/24/17 08/25/17 09:25 Bronchial Washings - Bronchial Acid Fast Bacilli Smear - Final No acid fast bacilli seen 08/25/17 09:25 Bronchial Washings - Bronchial Mycobacterial Culture - Pending 08/25/17 09:25 Bronchial - Bronchial Gram Stain - Final 08/25/17 09:25 Bronchial - Bronchial Bronchial Culture - Preliminary Heavy growth normal respiratory paul at 24 hours 08/25/17 09:25 Bronchial Washings - Bronchial Fungal Smear - Final No fungal elements seen 08/25/17 09:25 Bronchial Washings - Bronchial Fungal Culture - Pending 08/21/17 06:30 Blood - Peripheral Aerobic Blood Culture - Final No growth in 5 days 08/21/17 06:30 Blood - Peripheral Anaerobic Blood Culture - Final No growth in 5 days 08/21/17 06:25 Blood - Peripheral Aerobic Blood Culture - Final No growth in 5 days 08/21/17 06:25 Blood - Peripheral Anaerobic Blood Culture - Final No growth in 5 days 08/23/17 21:15 Sputum - Expectorated Sputum Gram Stain - Final 08/23/17 21:15 Sputum - Expectorated Sputum Sputum Culture - Final Heavy growth normal respiratory paul Lab - Hematology Results 08/24/17 08/25/17 19:45 08:50 WBC 11.5 H 10.6 RBC 2.94 L 2.78 L Hgb 8.7 L 8.5 L Hct 26.1 L 24.7 L MCV 88.7 89.0 MCH 29.7 30.4 MCHC 33.5 34.2 RDW 14.5 14.4 Plt Count 261 244 MPV 8.2 8.1 Neut % (Auto) 94.6 H Lymph % (Auto) 3.1 L [place] % (Auto) 2.0 Eos % (Auto) 0.1 Baso % (Auto) 0.2 Neut # (Auto) 10.9 H Lymph # (Auto) 0.4 L [place] # (Auto) 0.2 Eos # (Auto) 0.0 Baso # (Auto) 0.0 WBC Differential . Differential Comment Auto diff final Lab - Chemistry Results 08/25/17 08/25/17 08:50 23:41 Sodium 136 Potassium 2.9 L* 4.1 D Chloride 93 L Carbon Dioxide 32.0 Anion Gap 11 BUN 17 Creatinine 0.79 Estimated GFR 70 L Random Glucose 101 Calcium 8.8 Imaging: ITS Impressions Chest CTA 08/21/17 00:00 CONCLUSION: 1. Left lower lobe consolidation and patchy infiltrate right upper lobe. 2. Small left pleural effusion. 3. Mild emphysema without mass. 4. No evidence for pulmonary embolism. 5. Coronary artery calcifications. 6. Multiple hepatic low densities. 7. Extensive calcification of the upper abdominal aorta. Chest X-Ray 08/25/17 06:00 CONCLUSION: 1. No significant interval change. 2. Stable small left pleural effusion and associated left lower lobe airspace consolidation. Physical Exam: PHYSICAL EXAMINATION: GENERAL: Frail. No acute distress. HEENT: Head is atraumatic. Extraocular movements grossly intact. Pupils reactive to light. No icterus. Oropharynx moist mucosa without lesions. NECK: Supple. No adenopathy. LUNGS: Clear breath sounds on the left side. Rhonchi at the right base. HEART: Regular S1, S2. No audible murmurs, rubs or gallops. ABDOMEN: Bowel sounds present. Soft, nontender. No masses palpable. EXTREMITIES: No clubbing or cyanosis. Multiple ecchymotic lesions of the legs and upper extremities. No clubbing, cyanosis or edema. SKIN: No diffuse rash. NEUROLOGIC: Alert and oriented. No gross focal findings. PSYCHIATRIC: Mood is appropriate. Calm and cooperative. Assessment and Plan - Plan IMPRESSION: 1. Pneumonia involving both lower lobes of the lung. 2. Status post fracture of the right leg. 3. History of chronic obstructive pulmonary disease. 4. PENICILLIN ALLERGY. Appears to be improving RECOMMENDATIONS: 1. Continue aztreonam. 2. Continue azithromycin. 3. Continue Levaquin. 4. Monitor bronchoscopy culture. 5. Monitor the blood cultures. 6. Monitor clinical status.
[2017-08-26] MEDS: Levofloxacin 500 mg Premix Inj 500 MG/100 ML PIGGYBACK IV.SIG SCH (18:19)
--- NOTE | 2017-08-26 20:16 | P.PN ---
Subjective Interval history: alert no sob this PM FEELS BETTER POST BRONCHOSCOPY Physical Exam Vital signs: Vital Signs 08/26/17 00:00 08/26/17 04:00 08/26/17 08:00 Temperature 98.4 F 97.8 F 98 F Pulse Rate 87 77 76 Respiratory Rate 22 16 17 Blood Pressure 188/85 H 160/81 H 178/79 H Pulse Oximetry 95 95 96 08/26/17 12:00 08/26/17 16:00 08/26/17 17:45 Temperature 98.2 F 98.6 F Pulse Rate 79 87 Respiratory Rate 21 24 Blood Pressure 142/67 H 124/64 Pulse Oximetry 96 89 L 94 L Intake & Output 08/26/17 08/26/17 08/27/17 06:59 18:59 06:59 Intake Total 0 / 0 100 / 100 Balance 0 / 0 100 / 100 Intake: IV 100 / 100 Azactam Inj 2 GM In NS Inj 100 100 / 100 ML @ 200 mls/hr IV.SIG Q8H KAYLA Rx#:[id number] Oral 0 / 0 Other: # Voids 1 4 # Incontinent Voids 1 # Urine Diapers 1 Date of Last Bowel Movement 08/24/17 08/24/17 Narrative: GENERAL: Frail and elderly female, on nasal cannula in no acute distress CARDIOVASCULAR: Normal rate and regular rhythm without murmurs, gallops, or rubs. RESPIRATORY: Few bibasilar crackles and rhonchi GASTROINTESTINAL: Abdomen soft, non-tender, non-distended. Normal active bowel sounds MUSCULOSKELETAL: Extremities without cyanosis, or edema. NEURO: Alert & Oriented To person place time and situation Results - Labs CBC & Chem 7: 08/25/17 08:50 08/25/17 23:41 Laboratory Results - last 24 hr 08/25/17 23:41 Potassium 4.1 D Microbiology 08/25/17 09:25 Bronchial Washings - Bronchial Acid Fast Bacilli Smear - Final No acid fast bacilli seen 08/25/17 09:25 Bronchial - Bronchial Gram Stain - Final 08/25/17 09:25 Bronchial - Bronchial Bronchial Culture - Preliminary Heavy growth normal respiratory paul at 24 hours 08/25/17 09:25 Bronchial Washings - Bronchial Fungal Smear - Final No fungal elements seen 08/21/17 06:30 Blood - Peripheral Aerobic Blood Culture - Final No growth in 5 days 08/21/17 06:30 Blood - Peripheral Anaerobic Blood Culture - Final No growth in 5 days 08/21/17 06:25 Blood - Peripheral Aerobic Blood Culture - Final No growth in 5 days 08/21/17 06:25 Blood - Peripheral Anaerobic Blood Culture - Final No growth in 5 days 08/23/17 21:15 Sputum - Expectorated Sputum Gram Stain - Final 08/23/17 21:15 Sputum - Expectorated Sputum Sputum Culture - Final Heavy growth normal respiratory paul Assessment and Plan - Plan IMMRESSION COPD RESPIRATORY FAILURE PLAN O2 NEEDED BRONCHODILATOR THERAPY ANTIBX BRONCHOSCOPY TODAYIMPRESSION
[2017-08-26] MEDS: Heparin - SQ 10,000 UNITS/ML Vial SQ SCH (20:20)
[2017-08-27] MEDS: Aztreonam Inj 2 GM in Sodium Chloride 0.9% Inj 100 ML IV.SIG SCH ×7 (00:50→23:36)
--- NOTE | 2017-08-27 08:54 | P.PNIM ---
Subjective Interval history: States that she is not short of breath and wants to get better. She is feeling well. She wants to get out of the intensive care unit. Physical Exam Vital signs: Vital Signs 08/26/17 12:00 08/26/17 16:00 08/26/17 17:45 Temperature 98.2 F 98.6 F Pulse Rate 79 87 Respiratory Rate 21 24 Blood Pressure 142/67 H 124/64 Pulse Oximetry 96 89 L 94 L 08/26/17 20:00 08/26/17 21:29 08/27/17 00:00 Temperature 97.9 F 98.3 F Pulse Rate 89 77 Respiratory Rate 20 20 Blood Pressure 148/69 H 157/76 H Pulse Oximetry 93 L 97 95 08/27/17 00:55 08/27/17 04:00 08/27/17 08:16 Temperature 98.5 F Pulse Rate 75 74 Respiratory Rate 20 16 Blood Pressure 186/116 H Pulse Oximetry 97 88 L Intake & Output 08/26/17 08/27/17 08/27/17 18:59 06:59 18:59 Intake Total 100 / 100 200 / 200 Balance 100 / 100 200 / 200 Intake: IV 100 / 100 Azactam Inj 2 GM In NS Inj 100 100 / 100 ML @ 200 mls/hr IV.SIG Q8H KAYLA Rx#:[id number] Oral 200 / 200 Other: # Voids 4 4 # Incontinent Voids 4 Date of Last Bowel Movement 08/24/17 08/24/17 Narrative: GENERAL: Frail and elderly female, on nasal cannula in no acute distress CARDIOVASCULAR: Normal rate and regular rhythm without murmurs, gallops, or rubs. RESPIRATORY: Few bibasilar crackles with diminished breath sounds GASTROINTESTINAL: Abdomen soft, non-tender, non-distended. Normal active bowel sounds MUSCULOSKELETAL: Extremities without cyanosis, or edema. NEURO: Alert & Oriented To person place time and situation Results - Labs CBC & Chem 7: 08/25/17 08:50 08/25/17 23:41 Microbiology 08/25/17 09:25 Bronchial Washings - Bronchial Acid Fast Bacilli Smear - Final No acid fast bacilli seen 08/25/17 09:25 Bronchial - Bronchial Gram Stain - Final 08/25/17 09:25 Bronchial - Bronchial Bronchial Culture - Preliminary Heavy growth normal respiratory paul at 24 hours 08/25/17 09:25 Bronchial Washings - Bronchial Fungal Smear - Final No fungal elements seen 08/21/17 06:30 Blood - Peripheral Aerobic Blood Culture - Final No growth in 5 days 08/21/17 06:30 Blood - Peripheral Anaerobic Blood Culture - Final No growth in 5 days 08/21/17 06:25 Blood - Peripheral Aerobic Blood Culture - Final No growth in 5 days 08/21/17 06:25 Blood - Peripheral Anaerobic Blood Culture - Final No growth in 5 days 08/23/17 21:15 Sputum - Expectorated Sputum Gram Stain - Final 08/23/17 21:15 Sputum - Expectorated Sputum Sputum Culture - Final Heavy growth normal respiratory paul Assessment and Plan - Plan 81-year-old female admitted for healthcare associated pneumonia after outpatient treatment failure. Healthcare associated pneumonia Outpatient treatment failure Suspected resistance Penicillin allergy present Completed azithromycin and continue aztreonam IV and Levaquin per infectious disease Continue with supplemental oxygen ID and pulmonology following. Status post bronchoscopy 08/25/17 which showed mild tracheobronchitis, excess mucoid secretion and plugging. Follow-up with bronch cultures and preliminary sputum cultures shows heavy growth normal respiratory paul. Blood cultures shows no growth to date COPD exacerbation with a history of 2 L O2 dependence Hypoxia Continue oxygen as needed currently on 5 L a wean as tolerated Switch to Solu-Medrol IV and wean as tolerated, currently on 40 every 12 Mucinex Appreciate pulmonology, Dr. Mendez following. Subacute right leg fracture/debility Patient was in PT as an outpatient at a senior living facility Continue PT here. Suspect she will need to return to SNF for further rehabilitation. She is desiring [place] rehab. Hypertension, chronic essential Continue baseline treatment, currently on Norvasc, will start Vasotec IV as needed for uncontrolled blood pressure, will add Cozaar to the regimen Follow blood pressures Adjust treatments as needed General anxiety disorder Ativan as needed. DVT prophylaxis Lovenox Discharge Planning: To [place] rehab when
[2017-08-27] MEDS: Metoprolol Tartrate 50 MG Tablet PO SCH ×2 (09:16→21:04)
[2017-08-27] MEDS: Heparin - SQ 10,000 UNITS/ML Vial SQ SCH ×3 (09:16→18:44)
[2017-08-27] MEDS: MethylPREDNISolone Sod Succinate Inj 40 MG/ML Vial IV.PUSH SCH ×2 (09:16→21:05)
[2017-08-27] MEDS: amLODIPine 10 MG Tablet PO SCH ×2 (09:16→09:25)
[2017-08-27] MEDS: Vitamin B Complex/Vit C/Folic Tablet PO SCH ×2 (09:21→09:22)
[2017-08-27] MEDS: Lactobacillus Acidophilus/L. Spores Tablet PO SCH ×5 (09:22→17:34)
[2017-08-27] MEDS: Furosemide 40 MG Tablet PO SCH ×2 (09:22→09:25)
[2017-08-27] MEDS: Baclofen 10 MG Tablet PO SCH ×3 (09:23→21:04)
[2017-08-27] MEDS: Calcium Carbonate 500 MG Tablet PO SCH ×2 (09:23→21:04)
[2017-08-27] MEDS: Senna/Docusate Sodium 8.6/50 MG Tablet PO SCH ×2 (09:23→21:05)
[2017-08-27] MEDS: Tiotropium Bromide 18 MCG/ACT Inhaler INH SCH ×2 (09:25→11:35)
[2017-08-27] MEDS: Levofloxacin 500 mg Premix Inj 500 MG/100 ML PIGGYBACK IV.SIG SCH ×2 (09:25→13:31)
--- NOTE | 2017-08-27 16:01 | P.PN ---
Subjective Interval history: ALERT UP IN CHAIR ON O2 VIA NRMASK Physical Exam Vital signs: Vital Signs 08/26/17 17:45 08/26/17 20:00 08/26/17 21:29 Temperature 97.9 F Pulse Rate 89 Respiratory Rate 20 Blood Pressure 148/69 H Pulse Oximetry 94 L 93 L 97 08/27/17 00:00 08/27/17 00:55 08/27/17 04:00 Temperature 98.3 F 98.5 F Pulse Rate 77 75 74 Respiratory Rate 20 20 16 Blood Pressure 157/76 H 186/116 H Pulse Oximetry 95 97 08/27/17 08:00 08/27/17 08:16 08/27/17 11:13 Temperature 97.7 F Pulse Rate 107 H 84 Respiratory Rate 24 22 Blood Pressure 131/73 Pulse Oximetry 98 88 L 08/27/17 12:00 08/27/17 13:04 Temperature 98.1 F Pulse Rate 82 Respiratory Rate 24 Blood Pressure 144/65 H Pulse Oximetry 90 L 97 Intake & Output 08/26/17 08/27/17 08/27/17 18:59 06:59 18:59 Intake Total 100 / 100 300 / 300 300 / 300 Balance 100 / 100 300 / 300 300 / 300 Intake: IV 100 / 100 100 / 100 300 / 300 Azactam Inj 2 GM In NS Inj 100 100 / 100 200 / 200 ML @ 200 mls/hr IV.SIG Q8H KAYLA Rx#:[id number] Levaquin 500 mg Premix Inj 500 100 / 100 100 / 100 mg In 100 ml @ 100 mls/hr IV. SIG Q24H KAYLA Rx#:[id number] Oral 200 / 200 Other: # Voids 4 4 # Incontinent Voids 4 Date of Last Bowel Movement 08/24/17 08/24/17 08/24/17 Narrative: GENERAL: Frail and elderly female, on nasal cannula in no acute distress CARDIOVASCULAR: Normal rate and regular rhythm without murmurs, gallops, or rubs. RESPIRATORY: Few bibasilar crackles with diminished breath sounds GASTROINTESTINAL: Abdomen soft, non-tender, non-distended. Normal active bowel sounds MUSCULOSKELETAL: Extremities without cyanosis, or edema. NEURO: Alert & Oriented To person place time and situation Results - Labs CBC & Chem 7: 08/25/17 08:50 08/25/17 23:41 Microbiology 08/25/17 09:25 Bronchial - Bronchial Gram Stain - Final 08/25/17 09:25 Bronchial - Bronchial Bronchial Culture - Final Heavy growth normal respiratory paul 08/25/17 09:25 Bronchial Washings - Bronchial Acid Fast Bacilli Smear - Final No acid fast bacilli seen 08/25/17 09:25 Bronchial Washings - Bronchial Fungal Smear - Final No fungal elements seen Assessment and Plan - Plan IMMRESSION COPD RESPIRATORY FAILURE PLAN O2 NEEDED/CHAINGE TO HIGH FLOW NC BRONCHODILATOR THERAPY ANTIBX BRONCHOSCOPY TODAY
[2017-08-27] MEDS: Temazepam 15 MG Capsule PO PRN (21:05)
[2017-08-28] MEDS: Potassium Chlor 20 mEq Premix 20 MEQ/100 ML PIGGYBACK IV.SIG SCH (04:54)
[2017-08-28] MEDS: Heparin - SQ 10,000 UNITS/ML Vial SQ SCH ×2 (06:21→20:20)
[2017-08-28] MEDS: Aztreonam Inj 2 GM in Sodium Chloride 0.9% Inj 100 ML IV.SIG SCH ×3 (06:21→23:12)
[2017-08-28] MEDS: MethylPREDNISolone Sod Succinate Inj 40 MG/ML Vial IV.PUSH SCH ×2 (08:54→20:21)
[2017-08-28] MEDS: Senna/Docusate Sodium 8.6/50 MG Tablet PO SCH ×2 (08:54→20:21)
[2017-08-28] MEDS: Lactobacillus Acidophilus/L. Spores Tablet PO SCH ×3 (08:55→18:34)
[2017-08-28] MEDS: amLODIPine 10 MG Tablet PO SCH (08:55)
[2017-08-28] MEDS: Furosemide 40 MG Tablet PO SCH (08:55)
[2017-08-28] MEDS: Vitamin B Complex/Vit C/Folic Tablet PO SCH (08:55)
[2017-08-28] MEDS: Calcium Carbonate 500 MG Tablet PO SCH ×2 (08:56→20:21)
[2017-08-28] MEDS: Baclofen 10 MG Tablet PO SCH ×2 (08:56→20:20)
[2017-08-28] MEDS: Metoprolol Tartrate 50 MG Tablet PO SCH ×2 (08:56→20:21)
--- NOTE | 2017-08-28 10:34 | P.PNIM ---
Subjective Interval history: PATIENT DENIES BEING SOB AT THIS TIME BUT REMAINS ON HIGH FLOW OXYGEN BY NASAL CANNULA AT 15L OR 60% DW RN AND PT INCREASE ACTIVITY AM LABS IS Physical Exam Vital signs: Vital Signs 08/27/17 11:13 08/27/17 12:00 08/27/17 13:04 Temperature 98.1 F Pulse Rate 84 82 Respiratory Rate 22 24 Blood Pressure 144/65 H Pulse Oximetry 90 L 97 08/27/17 16:00 08/27/17 16:33 08/27/17 19:55 Temperature 97.4 F L Pulse Rate 86 91 H Respiratory Rate 36 H 18 Blood Pressure 119/60 Pulse Oximetry 98 92 L 92 L 08/27/17 20:00 08/28/17 00:00 08/28/17 04:00 Temperature 98.3 F 98.5 F 98.2 F Pulse Rate 91 H 75 78 Respiratory Rate 26 H 18 22 Blood Pressure 135/67 175/79 H 158/72 H Pulse Oximetry 94 L 92 L 94 L 08/28/17 07:31 Temperature Pulse Rate 84 Respiratory Rate 20 Blood Pressure Pulse Oximetry 95 Intake & Output 08/27/17 08/28/17 08/28/17 18:59 06:59 18:59 Intake Total 1300 / 1300 1440 / 1440 100 / 100 Output Total 0 / 0 500 / 500 Balance 1300 / 1300 940 / 940 100 / 100 Intake: IV 400 / 400 1200 / 1200 100 / 100 Azactam Inj 2 GM In NS Inj 100 300 / 300 100 / 100 100 / 100 ML @ 200 mls/hr IV.SIG Q8H KAYLA Rx#:[id number] Levaquin 500 mg Premix Inj 500 100 / 100 mg In 100 ml @ 100 mls/hr IV. SIG Q24H KAYLA Rx#:[id number] Oral 900 / 900 240 / 240 Output: Urine 500 / 500 Stool 0 / 0 Other: # Incontinent Voids 4 # Urine Diapers 4 Date of Last Bowel Movement 08/24/17 08/24/17 # Bowel Movements 1 0 Narrative: GENERAL: AWAKE AND ALERT AND ORIENTED X3 ON HIGH FLOW OXYGEN 15L 60%- VERY THIN APPEARING FEMALE SKIN: Warm and dry. HEAD: Atraumatic. Normocephalic. EYES: Pupils equal and round. No scleral icterus. No injection or drainage. ENT: No nasal bleeding or discharge. Mucous membranes pink and moist. NECK: Trachea midline. No JVD. CARDIOVASCULAR: Regular rate and rhythm. S1, S2 NO S3 OR S4 RESPIRATORY: No accessory muscle use. Clear to auscultation. Breath sounds equal bilaterally. FEW SCATTERED RHONCHI- GASTROINTESTINAL: Abdomen soft, non-tender, nondistended. Hepatic and splenic margins not palpable. MUSCULOSKELETAL: Extremities without clubbing, cyanosis, or edema. No obvious deformities. NEUROLOGICAL: Awake and alert. No obvious cranial nerve deficits. Motor grossly within normal limits. 4 out of 5 muscle strength in the arms and legs. Normal speech. PSYCHIATRIC: Appropriate mood and affect; insight and judgment normal. Results - Labs CBC & Chem 7: 08/25/17 08:50 08/25/17 23:41 Microbiology 08/25/17 09:25 Bronchial - Bronchial Gram Stain - Final 08/25/17 09:25 Bronchial - Bronchial Bronchial Culture - Final Heavy growth normal respiratory paul Assessment and Plan - Plan 81-year-old female admitted for healthcare associated pneumonia after outpatient treatment failure. Healthcare associated pneumonia Outpatient treatment failure Suspected resistance Penicillin allergy present Completed azithromycin and continue aztreonam IV and Levaquin per infectious disease Continue with supplemental oxygen ID and pulmonology following. Status post bronchoscopy 08/25/17 which showed mild tracheobronchitis, excess mucoid secretion and plugging. Follow-up with bronch cultures and preliminary sputum cultures shows heavy growth normal respiratory paul. Blood cultures shows no growth to date COPD exacerbation with a history of 2 L O2 dependence Hypoxia Continue oxygen as needed currently on 15 L a wean as tolerated Switch to Solu-Medrol IV and wean as tolerated, currently on 40MG every 12 Mucinex Appreciate pulmonology, Dr. Mendez following. Subacute right leg fracture/debility Patient was in PT as an outpatient at a nursing home facility Continue PT here. Suspect she will need to return to SNF for further rehabilitation. She is desiring [place] re[facility]. Hypertension, chronic essential Continue baseline treatment, currently on Norvasc, will start Vasotec IV as needed for uncontrolled blood pressure, will add Cozaar to the regimen Follow blood pressures Adjust treatments as needed General anxiety disorder Ativan as needed. DVT prophylaxis Lovenox Code Status: FULL CODE Discussed Condition With: business process manager Planning: [facility] ONCE IMPROVED AND OFF HIGH FLOW OXYGEN
[2017-08-28] MEDS: Tiotropium Bromide 18 MCG/ACT Inhaler INH SCH (11:08)
[2017-08-28] MEDS: Levofloxacin 500 mg Premix Inj 500 MG/100 ML PIGGYBACK IV.SIG SCH (15:00)
--- NOTE | 2017-08-28 15:43 | P.PN ---
Subjective Interval history: ALERT LESS SOB ON HIGH FLOW O2 Physical Exam Vital signs: Vital Signs 08/27/17 16:00 08/27/17 16:33 08/27/17 19:55 Temperature 97.4 F L Pulse Rate 86 91 H Respiratory Rate 36 H 18 Blood Pressure 119/60 Pulse Oximetry 98 92 L 92 L 08/27/17 20:00 08/28/17 00:00 08/28/17 00:06 Temperature 98.3 F 98.5 F Pulse Rate 91 H 75 83 Respiratory Rate 26 H 18 35 H Blood Pressure 135/67 175/79 H Pulse Oximetry 94 L 92 L 91 L 08/28/17 01:00 08/28/17 01:08 08/28/17 01:16 Temperature Pulse Rate 79 81 80 Respiratory Rate 18 19 19 Blood Pressure 194/87 H 181/83 H 179/81 H Pulse Oximetry 93 L 94 L 93 L 08/28/17 02:00 08/28/17 03:00 08/28/17 04:00 Temperature 98.2 F Pulse Rate 80 83 78 Respiratory Rate 22 23 22 Blood Pressure 180/80 H 169/75 H 158/72 H Pulse Oximetry 94 L 91 L 94 L 08/28/17 05:00 08/28/17 06:00 08/28/17 07:00 Temperature Pulse Rate 75 86 81 Respiratory Rate 23 33 H 21 Blood Pressure 169/76 H 169/74 H 175/79 H Pulse Oximetry 94 L 94 L 94 L 08/28/17 07:31 08/28/17 08:00 08/28/17 09:00 Temperature Pulse Rate 84 81 91 H Respiratory Rate 20 29 H 27 H Blood Pressure 192/86 H 182/84 H Pulse Oximetry 95 93 L 87 L 08/28/17 10:00 08/28/17 11:00 08/28/17 12:00 Temperature 98.4 F 98.4 F Pulse Rate 77 79 74 Respiratory Rate 20 20 Blood Pressure 135/59 L 143/64 H 141/66 H Pulse Oximetry 93 L 92 L Intake & Output 08/27/17 08/28/17 08/28/17 18:59 06:59 18:59 Intake Total 1300 / 1300 1440 / 1440 100 / 100 Output Total 0 / 0 500 / 500 Balance 1300 / 1300 940 / 940 100 / 100 Intake: IV 400 / 400 1200 / 1200 100 / 100 Azactam Inj 2 GM In NS Inj 100 300 / 300 100 / 100 100 / 100 ML @ 200 mls/hr IV.SIG Q8H KAYLA Rx#:[id number] Levaquin 500 mg Premix Inj 500 100 / 100 mg In 100 ml @ 100 mls/hr IV. SIG Q24H KAYLA Rx#:[id number] Oral 900 / 900 240 / 240 Output: Urine 500 / 500 Stool 0 / 0 Other: # Incontinent Voids 4 # Urine Diapers 4 Date of Last Bowel Movement 08/24/17 08/24/17 08/24/17 # Bowel Movements 1 0 Narrative: GENERAL: AWAKE AND ALERT AND ORIENTED X3 ON HIGH FLOW OXYGEN 15L 60%- VERY THIN APPEARING FEMALE SKIN: Warm and dry. HEAD: Atraumatic. Normocephalic. EYES: Pupils equal and round. No scleral icterus. No injection or drainage. ENT: No nasal bleeding or discharge. Mucous membranes pink and moist. NECK: Trachea midline. No JVD. CARDIOVASCULAR: Regular rate and rhythm. S1, S2 NO S3 OR S4 RESPIRATORY: No accessory muscle use. Clear to auscultation. Breath sounds equal bilaterally. FEW SCATTERED RHONCHI- GASTROINTESTINAL: Abdomen soft, non-tender, nondistended. Hepatic and splenic margins not palpable. MUSCULOSKELETAL: Extremities without clubbing, cyanosis, or edema. No obvious deformities. NEUROLOGICAL: Awake and alert. No obvious cranial nerve deficits. Motor grossly within normal limits. 4 out of 5 muscle strength in the arms and legs. Normal speech. PSYCHIATRIC: Appropriate mood and affect; insight and judgment normal. Results - Labs CBC & Chem 7: 08/25/17 08:50 08/25/17 23:41 Assessment and Plan - Plan IMMRESSION COPD RESPIRATORY FAILURE PLAN O2 NEEDED/CHAINGE TO HIGH FLOW NC BRONCHODILATOR THERAPY ANTIBX BRONCHOSCOPY TODAY
[2017-08-28] MEDS: Temazepam 15 MG Capsule PO PRN (23:12)
[2017-08-29 05:46] LABS: Baso % (Auto) 0.1 % (0.0-2.0); Hematocrit 23.1 % (35.0-46.0); Hemoglobin 7.7 gm/dL (11.6-15.3); Lymph # (Auto) 0.2 th/mm3 (1.0-4.8); Lymph % (Auto) 3.5 % (9.0-44.0); Mean Corpuscular HGB Conc 33.4 % (32.0-36.0); Mean Corpuscular Volume 89.7 fL (80.0-100.0); Mean Platelet Volume 8.2 fL (7.0-11.0); Mono # (Auto) 0.2 th/mm3 (0.0-0.9); Mono % (Auto) 3.4 % (0.0-8.0); Neut # (Auto) 6.3 th/mm3 (1.8-7.7); Platelet Count 232 th/mm3 (150-450); Red Blood Count 2.57 mil/mm3 (4.00-5.30); Red Cell Distribution Width 14.5 % (11.6-17.2); White Blood Count 6.8 th/mm3 (4.0-11.0)
[2017-08-29 06:09] LABS: Alanine Aminotransferase 23 U/L (10-53); Albumin 2.1 g/dL (3.4-5.0); Anion Gap 6 meq/L (5-15); Aspartate Aminotransferase 7 U/L (15-37); Blood Urea Nitrogen 20 mg/dL (7-18); Calcium 8.5 mg/dL (8.5-10.1); Carbon Dioxide 34.9 meq/L (21.0-32.0); Chloride 100 meq/L (98-107); Glomerular Filtration Rate 67 mL/min (>89); Glucose,Random 133 mg/dL (74-106); Magnesium 1.8 mg/dL (1.5-2.5); Potassium 3.5 meq/L (3.5-5.1); Sodium 141 meq/L (136-145)
[2017-08-29] MEDS: Aztreonam Inj 2 GM in Sodium Chloride 0.9% Inj 100 ML IV.SIG SCH ×3 (06:12→23:21)
[2017-08-29] MEDS: Heparin - SQ 10,000 UNITS/ML Vial SQ SCH ×2 (06:13→18:24)
[2017-08-29 06:18] LABS: Alkaline Phosphatase 123 U/L (45-117); Free T4 (Free Thyroxine) 1.35 ng/dL (0.76-1.46); Phosphorus 3.3 mg/dL (2.5-4.9)
[2017-08-29] MEDS: Senna/Docusate Sodium 8.6/50 MG Tablet PO SCH ×2 (08:34→20:55)
[2017-08-29] MEDS: Metoprolol Tartrate 50 MG Tablet PO SCH ×2 (08:34→20:55)
[2017-08-29] MEDS: amLODIPine 10 MG Tablet PO SCH (08:34)
[2017-08-29] MEDS: Baclofen 10 MG Tablet PO SCH ×2 (08:34→20:55)
[2017-08-29] MEDS: Vitamin B Complex/Vit C/Folic Tablet PO SCH (08:35)
[2017-08-29] MEDS: Furosemide 40 MG Tablet PO SCH (08:35)
[2017-08-29] MEDS: Lactobacillus Acidophilus/L. Spores Tablet PO SCH ×3 (08:35→17:08)
[2017-08-29] MEDS: MethylPREDNISolone Sod Succinate Inj 40 MG/ML Vial IV.PUSH SCH ×2 (08:36→20:54)
[2017-08-29] MEDS: Calcium Carbonate 500 MG Tablet PO SCH ×2 (08:36→20:55)
[2017-08-29] MEDS: Tiotropium Bromide 18 MCG/ACT Inhaler INH SCH (08:37)
--- NOTE | 2017-08-29 10:16 | P.PNIM ---
Subjective Interval history: 08-28 PATIENT DENIES BEING SOB AT THIS TIME BUT REMAINS ON HIGH FLOW OXYGEN BY NASAL CANNULA AT 15L OR 60% DW RN AND PT INCREASE ACTIVITY AM LABS IS 08-29 still on high flow oxygen wean as tolerated up activity dw RN AND PT AND FAMILY AM LABS Physical Exam Vital signs: Vital Signs 08/28/17 11:00 08/28/17 12:00 08/28/17 16:00 Temperature 98.4 F 98.0 F Pulse Rate 79 74 81 Respiratory Rate 20 16 Blood Pressure 143/64 H 141/66 H 114/59 L Pulse Oximetry 92 L 08/28/17 16:05 08/28/17 20:00 08/28/17 20:12 Temperature 97.9 F Pulse Rate 88 86 88 Respiratory Rate 20 30 H 22 Blood Pressure 137/64 Pulse Oximetry 94 L 90 L 08/29/17 00:00 08/29/17 01:00 08/29/17 02:00 Temperature 97.6 F Pulse Rate 75 79 79 Respiratory Rate 19 19 20 Blood Pressure 158/71 H 153/69 H 178/79 H Pulse Oximetry 95 94 L 93 L 08/29/17 03:00 08/29/17 04:00 08/29/17 05:00 Temperature 97.8 F Pulse Rate 79 75 79 Respiratory Rate 18 17 17 Blood Pressure 188/83 H 171/77 H 174/78 H Pulse Oximetry 96 95 98 08/29/17 06:00 08/29/17 07:00 08/29/17 08:00 Temperature 98.1 F Pulse Rate 69 90 71 Respiratory Rate 17 24 18 Blood Pressure 167/74 H 171/79 H 183/79 H Pulse Oximetry 100 93 L 99 08/29/17 08:47 08/29/17 09:00 08/29/17 09:36 Temperature Pulse Rate 87 92 H 77 Respiratory Rate 24 29 H 26 H Blood Pressure 174/78 H 175/78 H 132/63 Pulse Oximetry 96 92 L 93 L 08/29/17 10:05 Temperature Pulse Rate Respiratory Rate Blood Pressure Pulse Oximetry 94 L Intake & Output 08/28/17 08/29/17 08/29/17 18:59 06:59 18:59 Intake Total 300 / 300 440 / 440 Output Total 300 / 300 200 / 200 Balance 0 / 0 240 / 240 Weight 44.5 kg Intake: IV 300 / 300 200 / 200 Azactam Inj 2 GM In NS Inj 100 200 / 200 200 / 200 ML @ 200 mls/hr IV.SIG Q8H KAYLA Rx#:[id number] Levaquin 500 mg Premix Inj 500 100 / 100 mg In 100 ml @ 100 mls/hr IV. SIG Q24H KAYLA Rx#:[id number] Oral 240 / 240 Output: Urine 300 / 300 200 / 200 Other: # Voids 3 Date of Last Bowel Movement 08/24/17 08/24/17 08/24/17 Narrative: GENERAL: AWAKE AND ALERT AND ORIENTED X3 ON HIGH FLOW OXYGEN 15L 60%- VERY THIN APPEARING FEMALE SKIN: Warm and dry. HEAD: Atraumatic. Normocephalic. EYES: Pupils equal and round. No scleral icterus. No injection or drainage. ENT: No nasal bleeding or discharge. Mucous membranes pink and moist. NECK: Trachea midline. No JVD. CARDIOVASCULAR: Regular rate and rhythm. S1, S2 NO S3 OR S4 RESPIRATORY: No accessory muscle use. Clear to auscultation. Breath sounds equal bilaterally. FEW SCATTERED RHONCHI- GASTROINTESTINAL: Abdomen soft, non-tender, nondistended. Hepatic and splenic margins not palpable. MUSCULOSKELETAL: Extremities without clubbing, cyanosis, or edema. No obvious deformities. NEUROLOGICAL: Awake and alert. No obvious cranial nerve deficits. Motor grossly within normal limits. 4 out of 5 muscle strength in the arms and legs. Normal speech. PSYCHIATRIC: Appropriate mood and affect; insight and judgment normal. Results - Labs CBC & Chem 7: 08/29/17 04:53 08/29/17 04:53 Laboratory Results - last 24 hr 08/29/17 08/29/17 04:53 04:53 WBC 6.8 RBC 2.57 L Hgb 7.7 L Hct 23.1 L MCV 89.7 MCH 30.0 MCHC 33.4 RDW 14.5 Plt Count 232 MPV 8.2 Neut % (Auto) 93.0 H Lymph % (Auto) 3.5 L [place] % (Auto) 3.4 Eos % (Auto) 0.0 Baso % (Auto) 0.1 Neut # (Auto) 6.3 Lymph # (Auto) 0.2 L [place] # (Auto) 0.2 Eos # (Auto) 0.0 Baso # (Auto) 0.0 WBC Differential . Differential Comment Auto diff final Sodium 141 Potassium 3.5 Chloride 100 Carbon Dioxide 34.9 H Anion Gap 6 BUN 20 H Creatinine 0.82 Estimated GFR 67 L Random Glucose 133 H Calcium 8.5 Phosphorus 3.3 Magnesium 1.8 Total Bilirubin 0.2 AST 7 L ALT 23 Alkaline Phosphatase 123 H Total Protein 5.0 L Albumin 2.1 L TSH 2.990 Free T4 1.35 - Imaging Chest CTA 08/21/17 00:00 CONCLUSION: 1. Left lower lobe consolidation and patchy infiltrate right upper lobe. 2. Small left pleural effusion. 3. Mild emphysema without mass. 4. No evidence for pulmonary embolism. 5. Coronary artery calcifications. 6. Multiple hepatic low densities. 7. Extensive calcification of the upper abdominal aorta. Chest X-Ray 08/21/17 03:59 CONCLUSION: Left lower lobe pulmonary consolidation versus atelectasis and possible small left pleural effusion. Chest X-Ray 08/25/17 00:00 CONCLUSION: Bibasilar areas of suspected atelectasis or consolidation. There may be mild bilateral pleural effusions. Chest X-Ray 08/25/17 06:00 CONCLUSION: 1. No significant interval change. 2. Stable small left pleural effusion and associated left lower lobe airspace consolidation. Assessment and Plan - Plan 81-year-old female admitted for healthcare associated pneumonia after outpatient treatment failure. Healthcare associated pneumonia Outpatient treatment failure Suspected resistance Penicillin allergy present Completed azithromycin and continue aztreonam IV and Levaquin per infectious disease Continue with supplemental oxygen ID and pulmonology following. Status post bronchoscopy 08/25/17 which showed mild tracheobronchitis, excess mucoid secretion and plugging. Follow-up with bronch cultures and preliminary sputum cultures shows heavy growth normal respiratory paul. Blood cultures shows no growth to date TRY TO WEAN OFF HIGH FLOW OXYGEN COPD exacerbation with a history of 2 L O2 dependence Hypoxia Continue oxygen as needed currently on 15 L a wean as tolerated Switch to Solu-Medrol IV and wean as tolerated, currently on 40MG every 12 Mucinex Appreciate pulmonology, Dr. Mendez following. TRY TO WEAN OFF HIGH FLOW OXYGEN Subacute right leg fracture/debility Patient was in PT as an outpatient at a [facility] facility Continue PT here. Suspect she will need to return to SNF for further rehabilitation. She is desiring [facility]. Hypertension, chronic essential Continue baseline treatment, currently on Norvasc, will start Vasotec IV as needed for uncontrolled blood pressure, will add Cozaar to the regimen Follow blood pressures Adjust treatments as needed General anxiety disorder Ativan as needed. ANEMIA AM LABS MAY NEED TRANSFUSION IN FUTURE DVT prophylaxis Rosario PATEL RN AND PATIENT AND FAMILY Code Status: FULL CODE Discussed Condition With: RN AND PT AND FAMILY Discharge Planning: [facility] ONCE IMPROVED AND OFF HIGH FLOW OXYGEN
[2017-08-29] MEDS: Levofloxacin 500 mg Premix Inj 500 MG/100 ML PIGGYBACK IV.SIG SCH (15:19)
--- NOTE | 2017-08-29 16:08 | P.PNID ---
Subjective Remarks: Patient reports that she feels better. Notes that her breathing is improved. Little cough. Appears comfortable. Afebrile. No nausea. No vomiting. On O2 via nasal cannula. Admitted with SOB from rehab facility. Consult requested for pneumonia. Antibiotics: Azithromycin. Aztreonam. Levaquin. Lines: peripheral IV intact Past Medical History: Chronic obstructive pulmonary disease, hypertension, anxiety disorder, right hip fracture, left leg fracture, status post ORIF on 07/05/2017, right wrist fracture. Allergies/Adverse Reactions: Allergies Penicillins Allergy (Intermediate, Verified 08/21/17 03:53) Blister Objective Vital Signs 08/28/17 16:05 08/28/17 20:00 08/28/17 20:12 Temperature 97.9 F Pulse Rate 88 86 88 Respiratory Rate 20 30 H 22 Blood Pressure 137/64 Pulse Oximetry 94 L 90 L 08/29/17 00:00 08/29/17 01:00 08/29/17 02:00 Temperature 97.6 F Pulse Rate 75 79 79 Respiratory Rate 19 19 20 Blood Pressure 158/71 H 153/69 H 178/79 H Pulse Oximetry 95 94 L 93 L 08/29/17 03:00 08/29/17 04:00 08/29/17 05:00 Temperature 97.8 F Pulse Rate 79 75 79 Respiratory Rate 18 17 17 Blood Pressure 188/83 H 171/77 H 174/78 H Pulse Oximetry 96 95 98 08/29/17 06:00 08/29/17 07:00 08/29/17 08:00 Temperature 98.1 F Pulse Rate 69 90 71 Respiratory Rate 17 24 18 Blood Pressure 167/74 H 171/79 H 183/79 H Pulse Oximetry 100 93 L 99 08/29/17 08:47 08/29/17 09:00 08/29/17 09:36 Temperature Pulse Rate 87 92 H 77 Respiratory Rate 24 29 H 26 H Blood Pressure 174/78 H 175/78 H 132/63 Pulse Oximetry 96 92 L 93 L 08/29/17 10:00 08/29/17 10:05 08/29/17 10:30 Temperature Pulse Rate 75 77 Respiratory Rate 24 23 Blood Pressure 126/58 L 147/65 H Pulse Oximetry 94 L 94 L 96 08/29/17 11:00 08/29/17 11:30 08/29/17 12:00 Temperature 98.2 F Pulse Rate 78 75 68 Respiratory Rate 24 21 19 Blood Pressure 152/67 H 140/62 144/64 H Pulse Oximetry 93 L 93 L 95 08/29/17 12:30 08/29/17 13:00 08/29/17 13:30 Temperature Pulse Rate 75 79 90 Respiratory Rate 22 23 32 H Blood Pressure 138/63 137/65 134/68 Pulse Oximetry 93 L 94 L 90 L 08/29/17 14:00 08/29/17 14:30 Temperature Pulse Rate 93 H 90 Respiratory Rate 32 H 29 H Blood Pressure 131/60 120/59 L Pulse Oximetry 91 L 92 L Intake & Output 08/28/17 08/29/17 08/29/17 18:59 06:59 18:59 Intake Total 300 / 300 440 / 440 Output Total 300 / 300 200 / 200 Balance 0 / 0 240 / 240 Weight 44.5 kg Intake: IV 300 / 300 200 / 200 Azactam Inj 2 GM In NS Inj 100 200 / 200 200 / 200 ML @ 200 mls/hr IV.SIG Q8H KAYLA Rx#:[id number] Levaquin 500 mg Premix Inj 500 100 / 100 mg In 100 ml @ 100 mls/hr IV. SIG Q24H KAYLA Rx#:[id number] Oral 240 / 240 Output: Urine 300 / 300 200 / 200 Other: # Voids 3 Date of Last Bowel Movement 08/24/17 08/24/17 08/24/17 08/25/17 09:25 Bronchial Washings - Bronchial Fungal Smear - Final No fungal elements seen 08/25/17 09:25 Bronchial Washings - Bronchial Fungal Culture - Preliminary Yeast species 08/25/17 09:25 Bronchial - Bronchial Gram Stain - Final 08/25/17 09:25 Bronchial - Bronchial Bronchial Culture - Final Heavy growth normal respiratory paul 08/25/17 09:25 Bronchial Washings - Bronchial Acid Fast Bacilli Smear - Final No acid fast bacilli seen 08/25/17 09:25 Bronchial Washings - Bronchial Mycobacterial Culture - Pending Lab - Hematology Results 08/29/17 04:53 WBC 6.8 RBC 2.57 L Hgb 7.7 L Hct 23.1 L MCV 89.7 MCH 30.0 MCHC 33.4 RDW 14.5 Plt Count 232 MPV 8.2 Neut % (Auto) 93.0 H Lymph % (Auto) 3.5 L [place] % (Auto) 3.4 Eos % (Auto) 0.0 Baso % (Auto) 0.1 Neut # (Auto) 6.3 Lymph # (Auto) 0.2 L [place] # (Auto) 0.2 Eos # (Auto) 0.0 Baso # (Auto) 0.0 WBC Differential . Differential Comment Auto diff final Lab - Chemistry Results 08/29/17 04:53 Sodium 141 Potassium 3.5 Chloride 100 Carbon Dioxide 34.9 H Anion Gap 6 BUN 20 H Creatinine 0.82 Estimated GFR 67 L Random Glucose 133 H Calcium 8.5 Phosphorus 3.3 Magnesium 1.8 Total Bilirubin 0.2 AST 7 L ALT 23 Alkaline Phosphatase 123 H Total Protein 5.0 L Albumin 2.1 L TSH 2.990 Free T4 1.35 Imaging: ITS Impressions Chest CTA 08/21/17 00:00 CONCLUSION: 1. Left lower lobe consolidation and patchy infiltrate right upper lobe. 2. Small left pleural effusion. 3. Mild emphysema without mass. 4. No evidence for pulmonary embolism. 5. Coronary artery calcifications. 6. Multiple hepatic low densities. 7. Extensive calcification of the upper abdominal aorta. Chest X-Ray 08/25/17 06:00 CONCLUSION: 1. No significant interval change. 2. Stable small left pleural effusion and associated left lower lobe airspace consolidation. Physical Exam: PHYSICAL EXAMINATION: GENERAL: Frail. No acute distress. HEENT: Head is atraumatic. Extraocular movements grossly intact. Pupils reactive to light. No icterus. Oropharynx moist mucosa without lesions. NECK: Supple. No adenopathy. LUNGS: Clear breath sounds on the left side. Less rhonchi at the right base. HEART: Regular S1, S2. No audible murmurs, rubs or gallops. ABDOMEN: Bowel sounds present. Soft, nontender. No masses palpable. EXTREMITIES: No clubbing or cyanosis. Multiple ecchymotic lesions of the legs and upper extremities. No clubbing, cyanosis or edema. SKIN: No diffuse rash. NEUROLOGIC: Alert and oriented. No gross focal findings. PSYCHIATRIC: Mood is appropriate. Calm and cooperative. Assessment and Plan - Plan IMPRESSION: 1. Pneumonia involving both lower lobes of the lung. Post bronchoscopy. Bronchoscopy culture has yeast. Not yet identified fully. 2. Status post fracture of the right leg. 3. History of chronic obstructive pulmonary disease. 4. PENICILLIN ALLERGY. Appears to be improving. RECOMMENDATIONS: 1. Continue aztreonam. 2. Continue azithromycin. 3. Continue Levaquin. 4. Monitor bronchoscopy culture. Monitor identity of the yeast. May need treatment for the yeast depending on species. This may also be contaminant. 5. Monitor clinical status.
[2017-08-29 16:35] LABS: Hemoglobin A1c 5.7 % (4.3-6.0)
--- NOTE | 2017-08-29 17:05 | P.PN ---
Subjective Interval history: ALERT LESS SOB STILL ON HIGH FLOW O2 Physical Exam Vital signs: Vital Signs 08/28/17 20:00 08/28/17 20:12 08/29/17 00:00 Temperature 97.9 F 97.6 F Pulse Rate 86 88 75 Respiratory Rate 30 H 22 19 Blood Pressure 137/64 158/71 H Pulse Oximetry 94 L 90 L 95 08/29/17 01:00 08/29/17 02:00 08/29/17 03:00 Temperature Pulse Rate 79 79 79 Respiratory Rate 19 20 18 Blood Pressure 153/69 H 178/79 H 188/83 H Pulse Oximetry 94 L 93 L 96 08/29/17 04:00 08/29/17 05:00 08/29/17 06:00 Temperature 97.8 F Pulse Rate 75 79 69 Respiratory Rate 17 17 17 Blood Pressure 171/77 H 174/78 H 167/74 H Pulse Oximetry 95 98 100 08/29/17 07:00 08/29/17 08:00 08/29/17 08:47 Temperature 98.1 F Pulse Rate 90 71 87 Respiratory Rate 24 18 24 Blood Pressure 171/79 H 183/79 H 174/78 H Pulse Oximetry 93 L 99 96 08/29/17 09:00 08/29/17 09:36 08/29/17 10:00 Temperature Pulse Rate 92 H 77 75 Respiratory Rate 29 H 26 H 24 Blood Pressure 175/78 H 132/63 126/58 L Pulse Oximetry 92 L 93 L 94 L 08/29/17 10:05 08/29/17 10:30 08/29/17 11:00 Temperature Pulse Rate 77 78 Respiratory Rate 23 24 Blood Pressure 147/65 H 152/67 H Pulse Oximetry 94 L 96 93 L 08/29/17 11:30 08/29/17 12:00 08/29/17 12:30 Temperature 98.2 F Pulse Rate 75 68 75 Respiratory Rate 21 19 22 Blood Pressure 140/62 144/64 H 138/63 Pulse Oximetry 93 L 95 93 L 08/29/17 13:00 08/29/17 13:30 08/29/17 14:00 Temperature Pulse Rate 79 90 93 H Respiratory Rate 23 32 H 32 H Blood Pressure 137/65 134/68 131/60 Pulse Oximetry 94 L 90 L 91 L 08/29/17 14:30 Temperature Pulse Rate 90 Respiratory Rate 29 H Blood Pressure 120/59 L Pulse Oximetry 92 L Intake & Output 08/28/17 08/29/17 08/29/17 18:59 06:59 18:59 Intake Total 300 / 300 440 / 440 Output Total 300 / 300 200 / 200 Balance 0 / 0 240 / 240 Weight 44.5 kg Intake: IV 300 / 300 200 / 200 Azactam Inj 2 GM In NS Inj 100 200 / 200 200 / 200 ML @ 200 mls/hr IV.SIG Q8H KAYLA Rx#:[id number] Levaquin 500 mg Premix Inj 500 100 / 100 mg In 100 ml @ 100 mls/hr IV. SIG Q24H KAYLA Rx#:[id number] Oral 240 / 240 Output: Urine 300 / 300 200 / 200 Other: # Voids 3 Date of Last Bowel Movement 08/24/17 08/24/17 08/24/17 Narrative: GENERAL: AWAKE AND ALERT AND ORIENTED X3 ON HIGH FLOW OXYGEN 15L 60%- VERY THIN APPEARING FEMALE SKIN: Warm and dry. HEAD: Atraumatic. Normocephalic. EYES: Pupils equal and round. No scleral icterus. No injection or drainage. ENT: No nasal bleeding or discharge. Mucous membranes pink and moist. NECK: Trachea midline. No JVD. CARDIOVASCULAR: Regular rate and rhythm. S1, S2 NO S3 OR S4 RESPIRATORY: No accessory muscle use. Clear to auscultation. Breath sounds equal bilaterally. FEW SCATTERED RHONCHI- GASTROINTESTINAL: Abdomen soft, non-tender, nondistended. Hepatic and splenic margins not palpable. MUSCULOSKELETAL: Extremities without clubbing, cyanosis, or edema. No obvious deformities. NEUROLOGICAL: Awake and alert. No obvious cranial nerve deficits. Motor grossly within normal limits. 4 out of 5 muscle strength in the arms and legs. Normal speech. PSYCHIATRIC: Appropriate mood and affect; insight and judgment normal. Results - Labs CBC & Chem 7: 08/29/17 04:53 08/29/17 04:53 Laboratory Results - last 24 hr 08/29/17 08/29/17 08/29/17 04:53 04:53 04:53 WBC 6.8 RBC 2.57 L Hgb 7.7 L Hct 23.1 L MCV 89.7 MCH 30.0 MCHC 33.4 RDW 14.5 Plt Count 232 MPV 8.2 Neut % (Auto) 93.0 H Lymph % (Auto) 3.5 L [place] % (Auto) 3.4 Eos % (Auto) 0.0 Baso % (Auto) 0.1 Neut # (Auto) 6.3 Lymph # (Auto) 0.2 L [place] # (Auto) 0.2 Eos # (Auto) 0.0 Baso # (Auto) 0.0 WBC Differential . Differential Comment Auto diff final Sodium 141 Potassium 3.5 Chloride 100 Carbon Dioxide 34.9 H Anion Gap 6 BUN 20 H Creatinine 0.82 Estimated GFR 67 L Random Glucose 133 H Hemoglobin A1c 5.7 Calcium 8.5 Phosphorus 3.3 Magnesium 1.8 Total Bilirubin 0.2 AST 7 L ALT 23 Alkaline Phosphatase 123 H Total Protein 5.0 L Albumin 2.1 L TSH 2.990 Free T4 1.35 Microbiology 08/25/17 09:25 Bronchial Washings - Bronchial Fungal Smear - Final No fungal elements seen 08/25/17 09:25 Bronchial Washings - Bronchial Fungal Culture - Preliminary Yeast species Assessment and Plan - Plan IMMRESSION COPD RESPIRATORY FAILURE PLAN O2 NEEDED/CHAINGE TO HIGH FLOW NC BRONCHODILATOR THERAPY ANTIBX INCREASE ACTIVITY
[2017-08-29] MEDS: Temazepam 15 MG Capsule PO PRN (20:58)
[2017-08-30] MEDS: Heparin - SQ 10,000 UNITS/ML Vial SQ SCH ×2 (06:09→18:06)
[2017-08-30] MEDS: Aztreonam Inj 2 GM in Sodium Chloride 0.9% Inj 100 ML IV.SIG SCH ×2 (06:10→16:10)
[2017-08-30 07:55] LABS: Baso % (Auto) 0.2 % (0.0-2.0); Eos % (Auto) 0.1 % (0.0-4.0); Hematocrit 25.6 % (35.0-46.0); Hemoglobin 8.5 gm/dL (11.6-15.3); Lymph # (Auto) 0.3 th/mm3 (1.0-4.8); Lymph % (Auto) 3.6 % (9.0-44.0); Mean Corpuscular HGB Conc 33.1 % (32.0-36.0); Mean Corpuscular Hemoglobin 29.8 pg (27.0-34.0); Mean Platelet Volume 8.2 fL (7.0-11.0); Mono # (Auto) 0.1 th/mm3 (0.0-0.9); Mono % (Auto) 1.9 % (0.0-8.0); Neut # (Auto) 7.3 th/mm3 (1.8-7.7); Neut % (Auto) 94.2 % (16.0-70.0); Platelet Count 280 th/mm3 (150-450); Red Blood Count 2.84 mil/mm3 (4.00-5.30); Red Cell Distribution Width 14.8 % (11.6-17.2); White Blood Count 7.8 th/mm3 (4.0-11.0)
[2017-08-30 08:14] LABS: Albumin 2.1 g/dL (3.4-5.0); Anion Gap 9 meq/L (5-15); Aspartate Aminotransferase 9 U/L (15-37); Blood Urea Nitrogen 23 mg/dL (7-18); Calcium 8.8 mg/dL (8.5-10.1); Carbon Dioxide 31.9 meq/L (21.0-32.0); Chloride 101 meq/L (98-107); Glomerular Filtration Rate 64 mL/min (>89); Glucose,Random 101 mg/dL (74-106); Magnesium 2.1 mg/dL (1.5-2.5); Potassium 3.3 meq/L (3.5-5.1); Sodium 142 meq/L (136-145)
[2017-08-30 08:17] LABS: Alanine Aminotransferase 20 U/L (10-53); Alkaline Phosphatase 136 U/L (45-117); Phosphorus 3.2 mg/dL (2.5-4.9); Total Protein 5.4 g/dL (6.4-8.2)
[2017-08-30] MEDS: Baclofen 10 MG Tablet PO SCH ×2 (08:23→20:37)
[2017-08-30] MEDS: Metoprolol Tartrate 50 MG Tablet PO SCH ×2 (08:23→20:37)
[2017-08-30] MEDS: Furosemide 40 MG Tablet PO SCH (08:23)
[2017-08-30] MEDS: Lactobacillus Acidophilus/L. Spores Tablet PO SCH ×3 (08:23→18:06)
[2017-08-30] MEDS: Calcium Carbonate 500 MG Tablet PO SCH ×2 (08:23→20:37)
[2017-08-30] MEDS: Senna/Docusate Sodium 8.6/50 MG Tablet PO SCH ×2 (08:24→20:38)
[2017-08-30] MEDS: Vitamin B Complex/Vit C/Folic Tablet PO SCH (08:24)
[2017-08-30] MEDS: amLODIPine 10 MG Tablet PO SCH (08:24)
[2017-08-30] MEDS: MethylPREDNISolone Sod Succinate Inj 40 MG/ML Vial IV.PUSH SCH ×2 (08:24→20:37)
[2017-08-30] MEDS: Tiotropium Bromide 18 MCG/ACT Inhaler INH SCH (08:25)
[2017-08-30] MEDS ORDERED: Potassium Chloride 10 MEQ ER Capsule PO ONE (08:53)
--- NOTE | 2017-08-30 09:55 | P.PNIM ---
Subjective Interval history: 08-28 PATIENT DENIES BEING SOB AT THIS TIME BUT REMAINS ON HIGH FLOW OXYGEN BY NASAL CANNULA AT 15L OR 60% DW RN AND PT INCREASE ACTIVITY AM LABS IS - still on high flow oxygen wean as tolerated up activity dw RN AND PT AND FAMILY AM LABS 08-30 STILL ON HIGH FLOW OXYGEN 15 LITERS HYPOKALEMIA WILL REPLACE DW RN AND PT NEEDS INCREASED ACTIVITY HAD A DESATURATION EARLIER TODAY KEEP IN ICU Physical Exam Vital signs: Vital Signs 08/29/17 10:00 08/29/17 10:05 08/29/17 10:30 Temperature Pulse Rate 75 77 Respiratory Rate 24 23 Blood Pressure 126/58 L 147/65 H Pulse Oximetry 94 L 94 L 96 08/29/17 11:00 08/29/17 11:30 08/29/17 12:00 Temperature 98.2 F Pulse Rate 78 75 68 Respiratory Rate 24 21 19 Blood Pressure 152/67 H 140/62 144/64 H Pulse Oximetry 93 L 93 L 95 08/29/17 12:30 08/29/17 13:00 08/29/17 13:30 Temperature Pulse Rate 75 79 90 Respiratory Rate 22 23 32 H Blood Pressure 138/63 137/65 134/68 Pulse Oximetry 93 L 94 L 90 L 08/29/17 14:00 08/29/17 14:30 08/29/17 15:00 Temperature Pulse Rate 93 H 90 89 Respiratory Rate 32 H 29 H Blood Pressure 131/60 120/59 L 116/64 Pulse Oximetry 91 L 92 L 93 L 08/29/17 15:30 08/29/17 16:00 08/29/17 16:30 Temperature 97.8 F Pulse Rate 90 93 H 92 H Respiratory Rate 35 H Blood Pressure 126/59 L 122/58 L 132/66 Pulse Oximetry 93 L 89 L 89 L 08/29/17 17:00 08/29/17 17:04 08/29/17 17:30 Temperature Pulse Rate 105 H 90 86 Respiratory Rate Blood Pressure 183/81 H 151/65 H Pulse Oximetry 87 L 87 L 94 L 08/29/17 18:00 08/29/17 19:47 08/29/17 20:00 Temperature 98.0 F Pulse Rate 76 90 Respiratory Rate 24 Blood Pressure 122/60 130/62 Pulse Oximetry 95 95 91 L 08/29/17 21:30 08/29/17 22:00 08/29/17 22:30 Temperature Pulse Rate 76 68 68 Respiratory Rate 30 H 23 20 Blood Pressure 135/63 151/67 H Pulse Oximetry 94 L 97 97 08/29/17 23:00 08/29/17 23:30 08/30/17 00:00 Temperature 97.8 F Pulse Rate 74 66 74 Respiratory Rate 24 17 18 Blood Pressure 146/63 H 148/67 H 166/74 H Pulse Oximetry 98 99 99 08/30/17 00:30 08/30/17 01:00 08/30/17 01:30 Temperature Pulse Rate 64 66 63 Respiratory Rate 16 17 16 Blood Pressure 162/99 H 151/67 H 161/70 H Pulse Oximetry 99 98 98 08/30/17 02:00 08/30/17 02:30 08/30/17 03:00 Temperature Pulse Rate 63 74 68 Respiratory Rate 16 18 17 Blood Pressure 158/69 H 186/82 H 166/73 H Pulse Oximetry 99 99 99 08/30/17 03:30 08/30/17 04:00 08/30/17 04:30 Temperature 98.2 F Pulse Rate 75 71 65 Respiratory Rate 17 20 16 Blood Pressure 165/76 H 161/80 H 163/71 H Pulse Oximetry 99 99 100 08/30/17 05:00 08/30/17 05:30 08/30/17 06:00 Temperature Pulse Rate 67 63 90 Respiratory Rate 17 16 35 H Blood Pressure 158/69 H 159/69 H 170/108 H Pulse Oximetry 100 100 84 L 08/30/17 06:02 08/30/17 06:30 08/30/17 07:00 Temperature Pulse Rate 89 72 75 Respiratory Rate 27 H 18 18 Blood Pressure 171/77 H 163/70 H 179/75 H Pulse Oximetry 91 L 95 99 08/30/17 07:30 08/30/17 08:00 08/30/17 08:30 Temperature Pulse Rate 75 77 117 H Respiratory Rate 17 20 30 H Blood Pressure 180/86 H 163/74 H 176/121 H Pulse Oximetry 100 97 89 L 08/30/17 09:00 08/30/17 09:01 Temperature Pulse Rate 84 85 Respiratory Rate 25 H 29 H Blood Pressure 167/83 H Pulse Oximetry 89 L 90 L Intake & Output 08/29/17 08/30/17 08/30/17 18:59 06:59 18:59 Intake Total 920 / 920 280 / 280 100 / 100 Output Total 900 / 900 100 / 100 Balance 20 / 20 180 / 180 100 / 100 Weight 42.5 kg Intake: IV 200 / 200 100 / 100 100 / 100 Azactam Inj 2 GM In NS Inj 100 100 / 100 100 / 100 100 / 100 ML @ 200 mls/hr IV.SIG Q8H KAYLA Rx#:[id number] Levaquin 500 mg Premix Inj 500 100 / 100 mg In 100 ml @ 100 mls/hr IV. SIG Q24H KAYLA Rx#:[id number] Oral 720 / 720 180 / 180 Output: Urine 900 / 900 100 / 100 Other: # Incontinent Voids 1 Date of Last Bowel Movement 08/24/17 08/24/17 # Bowel Movements 0 0 Narrative: GENERAL: AWAKE AND ALERT AND ORIENTED X3 ON HIGH FLOW OXYGEN 15L 60%- VERY THIN APPEARING FEMALE SKIN: Warm and dry. HEAD: Atraumatic. Normocephalic. EYES: Pupils equal and round. No scleral icterus. No injection or drainage. ENT: No nasal bleeding or discharge. Mucous membranes pink and moist. NECK: Trachea midline. No JVD. CARDIOVASCULAR: Regular rate and rhythm. S1, S2 NO S3 OR S4 RESPIRATORY: No accessory muscle use. Clear to auscultation. Breath sounds equal bilaterally. FEW SCATTERED RHONCHI- GASTROINTESTINAL: Abdomen soft, non-tender, nondistended. Hepatic and splenic margins not palpable. MUSCULOSKELETAL: Extremities without clubbing, cyanosis, or edema. No obvious deformities. NEUROLOGICAL: Awake and alert. No obvious cranial nerve deficits. Motor grossly within normal limits. 4 out of 5 muscle strength in the arms and legs. Normal speech. PSYCHIATRIC: Appropriate mood and affect; insight and judgment normal. Results - Labs CBC & Chem 7: 08/30/17 06:10 08/30/17 06:10 Laboratory Results - last 24 hr 08/29/17 08/30/17 08/30/17 04:53 06:10 06:10 WBC 7.8 RBC 2.84 L Hgb 8.5 L Hct 25.6 L MCV 90.0 MCH 29.8 MCHC 33.1 RDW 14.8 Plt Count 280 MPV 8.2 Neut % (Auto) 94.2 H Lymph % (Auto) 3.6 L [place] % (Auto) 1.9 Eos % (Auto) 0.1 Baso % (Auto) 0.2 Neut # (Auto) 7.3 Lymph # (Auto) 0.3 L [place] # (Auto) 0.1 Eos # (Auto) 0.0 Baso # (Auto) 0.0 WBC Differential . Differential Comment Auto diff final Sodium 142 Potassium 3.3 L Chloride 101 Carbon Dioxide 31.9 Anion Gap 9 BUN 23 H Creatinine 0.85 Estimated GFR 64 L Random Glucose 101 Hemoglobin A1c 5.7 Calcium 8.8 Phosphorus 3.2 Magnesium 2.1 Total Bilirubin 0.2 AST 9 L ALT 20 Alkaline Phosphatase 136 H Total Protein 5.4 L Albumin 2.1 L Microbiology 08/25/17 09:25 Bronchial Washings - Bronchial Fungal Smear - Final No fungal elements seen 08/25/17 09:25 Bronchial Washings - Bronchial Fungal Culture - Preliminary Yeast species Assessment and Plan - Plan 81-year-old female admitted for healthcare associated pneumonia after outpatient treatment failure. Healthcare associated pneumonia Outpatient treatment failure Suspected resistance Penicillin allergy present Completed azithromycin and continue aztreonam IV and Levaquin per infectious disease Continue with supplemental oxygen ID and pulmonology following. Status post bronchoscopy 08/25/17 which showed mild tracheobronchitis, excess mucoid secretion and plugging. Follow-up with bronch cultures and preliminary sputum cultures shows heavy growth normal respiratory paul. Blood cultures shows no growth to date TRY TO WEAN OFF HIGH FLOW OXYGEN COPD exacerbation with a history of 2 L O2 dependence Hypoxia Continue oxygen as needed currently on 15 L a wean as tolerated Switch to Solu-Medrol IV and wean as tolerated, currently on 40MG every 12 Mucinex Appreciate pulmonology, Dr. Mendez following. TRY TO WEAN OFF HIGH FLOW OXYGEN Subacute right leg fracture/debility Patient was in PT as an outpatient at a [facility] facility Continue PT here. Suspect she will need to return to SNF for further rehabilitation. She is desiring [facility]. Hypertension, chronic essential Continue baseline treatment, currently on Norvasc, will start Vasotec IV as needed for uncontrolled blood pressure, will add Cozaar to the regimen Follow blood pressures Adjust treatments as needed General anxiety disorder Ativan as needed. ANEMIA AM LABS MAY NEED TRANSFUSION IN FUTURE HYPOKALEMIA WILL REPLACE POTASSIUM DVT prophylaxis Rosario PATEL RN AND PATIENT AND FAMILY Code Status: FULL CODE Discussed Condition With: RN AND PT Discharge Planning: [facility] ONCE IMPROVED AND OFF HIGH FLOW OXYGEN
[2017-08-30] MEDS: Levofloxacin 500 mg Premix Inj 500 MG/100 ML PIGGYBACK IV.SIG SCH (13:49)
--- NOTE | 2017-08-30 16:43 | P.PNID ---
Subjective Remarks: Patient reports that she feels better. Her breathing appears labored. On 70% FIO2. Vis NC. Little cough. Afebrile. No nausea. No vomiting. Admitted with SOB from rehab facility. Consult requested for pneumonia. Antibiotics: Azithromycin. Aztreonam. Levaquin. Lines: peripheral IV intact Past Medical History: Chronic obstructive pulmonary disease, hypertension, anxiety disorder, right hip fracture, left leg fracture, status post ORIF on 07/05/2017, right wrist fracture. Allergies/Adverse Reactions: Allergies Penicillins Allergy (Intermediate, Verified 08/21/17 03:53) Blister Objective Vital Signs 08/29/17 17:00 08/29/17 17:04 08/29/17 17:30 Temperature Pulse Rate 105 H 90 86 Respiratory Rate Blood Pressure 183/81 H 151/65 H Pulse Oximetry 87 L 87 L 94 L 08/29/17 18:00 08/29/17 19:47 08/29/17 20:00 Temperature 98.0 F Pulse Rate 76 90 Respiratory Rate 24 Blood Pressure 122/60 130/62 Pulse Oximetry 95 95 91 L 08/29/17 21:30 08/29/17 22:00 08/29/17 22:30 Temperature Pulse Rate 76 68 68 Respiratory Rate 30 H 23 20 Blood Pressure 135/63 151/67 H Pulse Oximetry 94 L 97 97 08/29/17 23:00 08/29/17 23:30 08/30/17 00:00 Temperature 97.8 F Pulse Rate 74 66 74 Respiratory Rate 24 17 18 Blood Pressure 146/63 H 148/67 H 166/74 H Pulse Oximetry 98 99 99 08/30/17 00:30 08/30/17 01:00 08/30/17 01:30 Temperature Pulse Rate 64 66 63 Respiratory Rate 16 17 16 Blood Pressure 162/99 H 151/67 H 161/70 H Pulse Oximetry 99 98 98 08/30/17 02:00 08/30/17 02:30 08/30/17 03:00 Temperature Pulse Rate 63 74 68 Respiratory Rate 16 18 17 Blood Pressure 158/69 H 186/82 H 166/73 H Pulse Oximetry 99 99 99 08/30/17 03:30 08/30/17 04:00 08/30/17 04:30 Temperature 98.2 F Pulse Rate 75 71 65 Respiratory Rate 17 20 16 Blood Pressure 165/76 H 161/80 H 163/71 H Pulse Oximetry 99 99 100 08/30/17 05:00 08/30/17 05:30 08/30/17 06:00 Temperature Pulse Rate 67 63 90 Respiratory Rate 17 16 35 H Blood Pressure 158/69 H 159/69 H 170/108 H Pulse Oximetry 100 100 84 L 08/30/17 06:02 08/30/17 06:30 08/30/17 07:00 Temperature Pulse Rate 89 72 75 Respiratory Rate 27 H 18 18 Blood Pressure 171/77 H 163/70 H 179/75 H Pulse Oximetry 91 L 95 99 08/30/17 07:30 08/30/17 08:00 08/30/17 08:30 Temperature Pulse Rate 75 77 117 H Respiratory Rate 17 20 30 H Blood Pressure 180/86 H 163/74 H 176/121 H Pulse Oximetry 100 97 89 L 08/30/17 09:00 08/30/17 09:01 08/30/17 09:30 Temperature Pulse Rate 84 85 81 Respiratory Rate 25 H 29 H 28 H Blood Pressure 167/83 H 132/62 Pulse Oximetry 89 L 90 L 95 08/30/17 10:00 08/30/17 10:30 08/30/17 11:00 Temperature Pulse Rate 83 88 85 Respiratory Rate 33 H 31 H 25 H Blood Pressure 142/64 H 144/66 H 162/68 H Pulse Oximetry 94 L 91 L 90 L 08/30/17 11:30 08/30/17 11:34 08/30/17 12:00 Temperature 97.8 F Pulse Rate 92 H 91 H 93 H Respiratory Rate 43 H 26 H 47 H Blood Pressure 188/134 H 179/82 H Pulse Oximetry 89 L 94 L 89 L 08/30/17 12:30 08/30/17 13:00 08/30/17 13:30 Temperature Pulse Rate 81 83 91 H Respiratory Rate 24 23 33 H Blood Pressure 141/65 H 137/62 163/72 H Pulse Oximetry 94 L 98 94 L 08/30/17 14:00 08/30/17 14:30 08/30/17 15:00 Temperature Pulse Rate 94 H 97 H 97 H Respiratory Rate 34 H 28 H 29 H Blood Pressure 136/57 L 141/63 H 130/64 Pulse Oximetry 92 L 95 96 08/30/17 15:30 08/30/17 16:00 08/30/17 16:30 Temperature 98.0 F Pulse Rate 98 H 100 H 94 H Respiratory Rate 28 H 36 H 29 H Blood Pressure 144/76 H 146/98 H 156/71 H Pulse Oximetry 94 L 93 L 92 L Intake & Output 08/29/17 08/30/17 08/30/17 18:59 06:59 18:59 Intake Total 920 / 920 280 / 280 200 / 200 Output Total 900 / 900 100 / 100 Balance 20 / 20 180 / 180 200 / 200 Weight 42.5 kg Intake: IV 200 / 200 100 / 100 200 / 200 Azactam Inj 2 GM In NS Inj 100 100 / 100 100 / 100 100 / 100 ML @ 200 mls/hr IV.SIG Q8H KAYLA Rx#:[id number] Levaquin 500 mg Premix Inj 500 100 / 100 100 / 100 mg In 100 ml @ 100 mls/hr IV. SIG Q24H KAYLA Rx#:[id number] Oral 720 / 720 180 / 180 Output: Urine 900 / 900 100 / 100 Other: # Incontinent Voids 1 Date of Last Bowel Movement 08/24/17 08/24/17 08/30/17 # Bowel Movements 0 0 08/25/17 09:25 Bronchial Washings - Bronchial Fungal Smear - Final No fungal elements seen 08/25/17 09:25 Bronchial Washings - Bronchial Fungal Culture - Final Lab - Hematology Results 08/29/17 08/30/17 04:53 06:10 WBC 6.8 7.8 RBC 2.57 L 2.84 L Hgb 7.7 L 8.5 L Hct 23.1 L 25.6 L MCV 89.7 90.0 MCH 30.0 29.8 MCHC 33.4 33.1 RDW 14.5 14.8 Plt Count 232 280 MPV 8.2 8.2 Neut % (Auto) 93.0 H 94.2 H Lymph % (Auto) 3.5 L 3.6 L Gaines % (Auto) 3.4 1.9 Eos % (Auto) 0.0 0.1 Baso % (Auto) 0.1 0.2 Neut # (Auto) 6.3 7.3 Lymph # (Auto) 0.2 L 0.3 L Gaines # (Auto) 0.2 0.1 Eos # (Auto) 0.0 0.0 Baso # (Auto) 0.0 0.0 WBC Differential . . Differential Comment Auto diff final Auto diff final Lab - Chemistry Results 08/29/17 08/29/17 08/30/17 04:53 04:53 06:10 Sodium 141 142 Potassium 3.5 3.3 L Chloride 100 101 Carbon Dioxide 34.9 H 31.9 Anion Gap 6 9 BUN 20 H 23 H Creatinine 0.82 0.85 Estimated GFR 67 L 64 L Random Glucose 133 H 101 Hemoglobin A1c 5.7 Calcium 8.5 8.8 Phosphorus 3.3 3.2 Magnesium 1.8 2.1 Total Bilirubin 0.2 0.2 AST 7 L 9 L ALT 23 20 Alkaline Phosphatase 123 H 136 H Total Protein 5.0 L 5.4 L Albumin 2.1 L 2.1 L TSH 2.990 Free T4 1.35 Imaging: ITS Impressions Chest CTA 08/21/17 00:00 CONCLUSION: 1. Left lower lobe consolidation and patchy infiltrate right upper lobe. 2. Small left pleural effusion. 3. Mild emphysema without mass. 4. No evidence for pulmonary embolism. 5. Coronary artery calcifications. 6. Multiple hepatic low densities. 7. Extensive calcification of the upper abdominal aorta. Chest X-Ray 08/25/17 06:00 CONCLUSION: 1. No significant interval change. 2. Stable small left pleural effusion and associated left lower lobe airspace consolidation. Physical Exam: PHYSICAL EXAMINATION: GENERAL: Frail. No acute distress. HEENT: Head is atraumatic. Extraocular movements grossly intact. Pupils reactive to light. No icterus. Oropharynx moist mucosa without lesions. NECK: Supple. No adenopathy. LUNGS: Decreased BS. HEART: Regular S1, S2. No audible murmurs, rubs or gallops. ABDOMEN: Bowel sounds present. Soft, nontender. No masses palpable. EXTREMITIES: No clubbing or cyanosis. Multiple ecchymotic lesions of the legs and upper extremities. No clubbing, cyanosis or edema. SKIN: No diffuse rash. NEUROLOGIC: Alert and oriented. No gross focal findings. PSYCHIATRIC: Mood is appropriate. Calm and cooperative. Assessment and Plan - Plan IMPRESSION: 1. Pneumonia involving both lower lobes of the lung. Post bronchoscopy. Bronchoscopy culture now reported as nl paul. 2. Status post fracture of the right leg. 3. History of chronic obstructive pulmonary disease. 4. PENICILLIN ALLERGY. RECOMMENDATIONS: 1. Continue aztreonam. 2. Continue azithromycin. 3. Continue Levaquin. 4. Monitor clinical status.
--- NOTE | 2017-08-30 20:51 | P.PNPL ---
Subjective Interval history: 81 YOWF with Pn,COPD,RF On high flow 02 Breathing better no Fever Physical Exam Vital signs: Vital Signs 08/29/17 21:30 08/29/17 22:00 08/29/17 22:30 Temperature Pulse Rate 76 68 68 Respiratory Rate 30 H 23 20 Blood Pressure 135/63 151/67 H Pulse Oximetry 94 L 97 97 08/29/17 23:00 08/29/17 23:30 08/30/17 00:00 Temperature 97.8 F Pulse Rate 74 66 74 Respiratory Rate 24 17 18 Blood Pressure 146/63 H 148/67 H 166/74 H Pulse Oximetry 98 99 99 08/30/17 00:30 08/30/17 01:00 08/30/17 01:30 Temperature Pulse Rate 64 66 63 Respiratory Rate 16 17 16 Blood Pressure 162/99 H 151/67 H 161/70 H Pulse Oximetry 99 98 98 08/30/17 02:00 08/30/17 02:30 08/30/17 03:00 Temperature Pulse Rate 63 74 68 Respiratory Rate 16 18 17 Blood Pressure 158/69 H 186/82 H 166/73 H Pulse Oximetry 99 99 99 08/30/17 03:30 08/30/17 04:00 08/30/17 04:30 Temperature 98.2 F Pulse Rate 75 71 65 Respiratory Rate 17 20 16 Blood Pressure 165/76 H 161/80 H 163/71 H Pulse Oximetry 99 99 100 08/30/17 05:00 08/30/17 05:30 08/30/17 06:00 Temperature Pulse Rate 67 63 90 Respiratory Rate 17 16 35 H Blood Pressure 158/69 H 159/69 H 170/108 H Pulse Oximetry 100 100 84 L 08/30/17 06:02 08/30/17 06:30 08/30/17 07:00 Temperature Pulse Rate 89 72 75 Respiratory Rate 27 H 18 18 Blood Pressure 171/77 H 163/70 H 179/75 H Pulse Oximetry 91 L 95 99 08/30/17 07:30 08/30/17 08:00 08/30/17 08:30 Temperature Pulse Rate 75 77 117 H Respiratory Rate 17 20 30 H Blood Pressure 180/86 H 163/74 H 176/121 H Pulse Oximetry 100 97 89 L 08/30/17 09:00 08/30/17 09:01 08/30/17 09:30 Temperature Pulse Rate 84 85 81 Respiratory Rate 25 H 29 H 28 H Blood Pressure 167/83 H 132/62 Pulse Oximetry 89 L 90 L 95 08/30/17 10:00 08/30/17 10:30 08/30/17 11:00 Temperature Pulse Rate 83 88 85 Respiratory Rate 33 H 31 H 25 H Blood Pressure 142/64 H 144/66 H 162/68 H Pulse Oximetry 94 L 91 L 90 L 08/30/17 11:30 08/30/17 11:34 08/30/17 12:00 Temperature 97.8 F Pulse Rate 92 H 91 H 93 H Respiratory Rate 43 H 26 H 47 H Blood Pressure 188/134 H 179/82 H Pulse Oximetry 89 L 94 L 89 L 08/30/17 12:30 08/30/17 13:00 08/30/17 13:30 Temperature Pulse Rate 81 83 91 H Respiratory Rate 24 23 33 H Blood Pressure 141/65 H 137/62 163/72 H Pulse Oximetry 94 L 98 94 L 08/30/17 14:00 08/30/17 14:30 08/30/17 15:00 Temperature Pulse Rate 94 H 97 H 97 H Respiratory Rate 34 H 28 H 29 H Blood Pressure 136/57 L 141/63 H 130/64 Pulse Oximetry 92 L 95 96 08/30/17 15:30 08/30/17 16:00 08/30/17 16:30 Temperature 98.0 F Pulse Rate 98 H 100 H 94 H Respiratory Rate 28 H 36 H 29 H Blood Pressure 144/76 H 146/98 H 156/71 H Pulse Oximetry 94 L 93 L 92 L 08/30/17 17:49 08/30/17 19:53 Temperature Pulse Rate 93 H Respiratory Rate 23 Blood Pressure Pulse Oximetry 94 L Intake & Output 08/30/17 08/30/17 08/31/17 06:59 18:59 06:59 Intake Total 280 / 280 780 / 780 Output Total 100 / 100 Balance 180 / 180 780 / 780 Weight 42.5 kg Intake: IV 100 / 100 300 / 300 Azactam Inj 2 GM In NS Inj 100 100 / 100 200 / 200 ML @ 200 mls/hr IV.SIG Q8H KAYLA Rx#:[id number] Levaquin 500 mg Premix Inj 500 100 / 100 mg In 100 ml @ 100 mls/hr IV. SIG Q24H KAYLA Rx#:[id number] Oral 180 / 180 480 / 480 Output: Urine 100 / 100 Other: # Voids 5 # Incontinent Voids 1 Date of Last Bowel Movement 08/24/17 08/30/17 # Bowel Movements 0 7 GENERAL: Frail elderly WF, mild sob SKIN: Warm and dry. HEAD: Normocephalic. EYES: No scleral icterus. No injection or drainage. NECK: Supple, trachea midline. No JVD or lymphadenopathy. CARDIOVASCULAR: Regular rate and rhythm without murmurs, gallops, or rubs. RESPIRATORY: Breath sounds equal bilaterally. No accessory muscle use. GASTROINTESTINAL: Abdomen soft, non-tender, nondistended. MUSCULOSKELETAL: No cyanosis, or edema. BACK: Nontender without obvious deformity. No CVA tenderness. Assessment and Plan - Plan IMPRESSION: Hypoxic RF COPD Pneumonia HTN PLAN: Supplement 02 with High flow Aerosol nebs Abx per ID DVT prophylaxis.
[2017-08-30] MEDS: Temazepam 15 MG Capsule PO PRN (21:12)
[2017-08-31] MEDS: Aztreonam Inj 2 GM in Sodium Chloride 0.9% Inj 100 ML IV.SIG SCH ×4 (00:34→23:07)
[2017-08-31 05:15] LABS: Baso % (Auto) 0.1 % (0.0-2.0); Hematocrit 23.9 % (35.0-46.0); Hemoglobin 8.1 gm/dL (11.6-15.3); Lymph # (Auto) 0.2 th/mm3 (1.0-4.8); Mean Corpuscular Hemoglobin 30.8 pg (27.0-34.0); Mean Corpuscular Volume 90.5 fL (80.0-100.0); Mono # (Auto) 0.2 th/mm3 (0.0-0.9); Mono % (Auto) 1.8 % (0.0-8.0); Neut # (Auto) 8.8 th/mm3 (1.8-7.7); Neut % (Auto) 96.1 % (16.0-70.0); Platelet Count 246 th/mm3 (150-450); Red Blood Count 2.64 mil/mm3 (4.00-5.30); Red Cell Distribution Width 15.2 % (11.6-17.2); White Blood Count 9.2 th/mm3 (4.0-11.0)
[2017-08-31 06:15] LABS: Alanine Aminotransferase 19 U/L (10-53); Alkaline Phosphatase 125 U/L (45-117); Anion Gap 7 meq/L (5-15); Aspartate Aminotransferase 11 U/L (15-37); Blood Urea Nitrogen 20 mg/dL (7-18); Calcium 8.5 mg/dL (8.5-10.1); Chloride 108 meq/L (98-107); Glomerular Filtration Rate 76 mL/min (>89); Glucose,Random 127 mg/dL (74-106); Phosphorus 2.5 mg/dL (2.5-4.9); Potassium 4.4 meq/L (3.5-5.1); Sodium 145 meq/L (136-145); Total Protein 5.1 g/dL (6.4-8.2)
[2017-08-31] MEDS: Heparin - SQ 10,000 UNITS/ML Vial SQ SCH ×2 (06:31→20:53)
[2017-08-31] MEDS: Baclofen 10 MG Tablet PO SCH ×2 (08:18→20:54)
[2017-08-31] MEDS: Calcium Carbonate 500 MG Tablet PO SCH ×2 (08:19→20:54)
[2017-08-31] MEDS: Furosemide 40 MG Tablet PO SCH (08:19)
[2017-08-31] MEDS: Lactobacillus Acidophilus/L. Spores Tablet PO SCH ×3 (08:19→17:54)
[2017-08-31] MEDS: MethylPREDNISolone Sod Succinate Inj 40 MG/ML Vial IV.PUSH SCH ×2 (08:19→20:54)
[2017-08-31] MEDS: Metoprolol Tartrate 50 MG Tablet PO SCH ×2 (08:19→20:54)
[2017-08-31] MEDS: Vitamin B Complex/Vit C/Folic Tablet PO SCH (08:19)
[2017-08-31] MEDS: amLODIPine 10 MG Tablet PO SCH (08:19)
[2017-08-31] MEDS: Tiotropium Bromide 18 MCG/ACT Inhaler INH SCH (08:20)
[2017-08-31] MEDS: Senna/Docusate Sodium 8.6/50 MG Tablet PO SCH ×2 (08:20→20:54)
--- NOTE | 2017-08-31 09:57 | P.PNIM ---
Subjective Interval history: 08-28 PATIENT DENIES BEING SOB AT THIS TIME BUT REMAINS ON HIGH FLOW OXYGEN BY NASAL CANNULA AT 15L OR 60% DW RN AND PT INCREASE ACTIVITY AM LABS IS 08-29 still on high flow oxygen wean as tolerated up activity dw RN AND PT AND FAMILY AM LABS 08-30 STILL ON HIGH FLOW OXYGEN 15 LITERS HYPOKALEMIA WILL REPLACE DW RN AND PT NEEDS INCREASED ACTIVITY HAD A DESATURATION EARLIER TODAY KEEP IN ICU 08-31 STILL ON HIGH FLOW OXYGEN STILL ON 20L HIGH FLOW OXYGEN STILL WITH RHONCHI AND WHEEZES AM LABS PULMONARY TOILET Physical Exam Vital signs: Vital Signs 08/30/17 10:00 08/30/17 10:30 08/30/17 11:00 Temperature Pulse Rate 83 88 85 Respiratory Rate 33 H 31 H 25 H Blood Pressure 142/64 H 144/66 H 162/68 H Pulse Oximetry 94 L 91 L 90 L 08/30/17 11:30 08/30/17 11:34 08/30/17 12:00 Temperature 97.8 F Pulse Rate 92 H 91 H 93 H Respiratory Rate 43 H 26 H 47 H Blood Pressure 188/134 H 179/82 H Pulse Oximetry 89 L 94 L 89 L 08/30/17 12:30 08/30/17 13:00 08/30/17 13:30 Temperature Pulse Rate 81 83 91 H Respiratory Rate 24 23 33 H Blood Pressure 141/65 H 137/62 163/72 H Pulse Oximetry 94 L 98 94 L 08/30/17 14:00 08/30/17 14:30 08/30/17 15:00 Temperature Pulse Rate 94 H 97 H 97 H Respiratory Rate 34 H 28 H 29 H Blood Pressure 136/57 L 141/63 H 130/64 Pulse Oximetry 92 L 95 96 08/30/17 15:30 08/30/17 16:00 08/30/17 16:30 Temperature 98.0 F Pulse Rate 98 H 100 H 94 H Respiratory Rate 28 H 36 H 29 H Blood Pressure 144/76 H 146/98 H 156/71 H Pulse Oximetry 94 L 93 L 92 L 08/30/17 17:31 08/30/17 17:49 08/30/17 19:00 Temperature Pulse Rate 93 H 106 H Respiratory Rate 23 24 Blood Pressure 112/65 164/68 H Pulse Oximetry 91 L 08/30/17 19:30 08/30/17 19:53 08/30/17 20:00 Temperature Pulse Rate 97 H 97 H Respiratory Rate 25 H 26 H Blood Pressure 170/73 H 168/77 H Pulse Oximetry 92 L 94 L 92 L 08/30/17 20:30 08/30/17 21:00 08/30/17 21:30 Temperature Pulse Rate 94 H 103 H 94 H Respiratory Rate 26 H 51 H 28 H Blood Pressure 167/74 H 168/71 H 155/68 H Pulse Oximetry 94 L 86 L 91 L 08/30/17 22:00 08/30/17 22:30 08/30/17 23:00 Temperature Pulse Rate 87 81 77 Respiratory Rate 29 H 24 23 Blood Pressure 172/75 H 179/77 H 162/72 H Pulse Oximetry 95 94 L 94 L 08/31/17 00:00 08/31/17 04:00 08/31/17 08:00 Temperature 99.3 F 98.0 F Pulse Rate 80 83 78 Respiratory Rate 22 25 H 20 Blood Pressure 166/76 H 178/79 H 178/75 H Pulse Oximetry 98 97 100 08/31/17 08:04 Temperature Pulse Rate Respiratory Rate Blood Pressure Pulse Oximetry 100 Intake & Output 08/30/17 08/31/17 08/31/17 18:59 06:59 18:59 Intake Total 780 / 780 340 / 340 100 / 100 Balance 780 / 780 340 / 340 100 / 100 Weight 43 kg Intake: IV 300 / 300 100 / 100 100 / 100 Azactam Inj 2 GM In NS Inj 100 200 / 200 100 / 100 100 / 100 ML @ 200 mls/hr IV.SIG Q8H KAYLA Rx#:[id number] Levaquin 500 mg Premix Inj 500 100 / 100 mg In 100 ml @ 100 mls/hr IV. SIG Q24H KAYLA Rx#:[id number] Oral 480 / 480 240 / 240 Other: # Voids 5 3 Date of Last Bowel Movement 08/30/17 08/31/17 # Bowel Movements 7 1 Narrative: GENERAL: AWAKE AND ALERT AND ORIENTED X3 ON HIGH FLOW OXYGEN 15L 60%- VERY THIN APPEARING FEMALE SKIN: Warm and dry. HEAD: Atraumatic. Normocephalic. EYES: Pupils equal and round. No scleral icterus. No injection or drainage. ENT: No nasal bleeding or discharge. Mucous membranes pink and moist. NECK: Trachea midline. No JVD. CARDIOVASCULAR: Regular rate and rhythm. S1, S2 NO S3 OR S4 RESPIRATORY: No accessory muscle use. DECREASED BS B;. Breath sounds equal bilaterally. FEW SCATTERED RHONCHI- GASTROINTESTINAL: Abdomen soft, non-tender, nondistended. Hepatic and splenic margins not palpable. MUSCULOSKELETAL: Extremities without clubbing, cyanosis, or edema. No obvious deformities. NEUROLOGICAL: Awake and alert. No obvious cranial nerve deficits. Motor grossly within normal limits. 4 out of 5 muscle strength in the arms and legs. Normal speech. PSYCHIATRIC: Appropriate mood and affect; insight and judgment normal. Results - Labs CBC & Chem 7: 08/31/17 04:20 08/31/17 04:20 Laboratory Results - last 24 hr 08/31/17 08/31/17 04:20 04:20 WBC 9.2 RBC 2.64 L Hgb 8.1 L Hct 23.9 L MCV 90.5 MCH 30.8 MCHC 34.0 RDW 15.2 Plt Count 246 MPV 8.0 Neut % (Auto) 96.1 H Lymph % (Auto) 2.0 L Major % (Auto) 1.8 Eos % (Auto) 0.0 Baso % (Auto) 0.1 Neut # (Auto) 8.8 H Lymph # (Auto) 0.2 L Major # (Auto) 0.2 Eos # (Auto) 0.0 Baso # (Auto) 0.0 WBC Differential . Differential Comment Auto diff final Sodium 145 Potassium 4.4 D Chloride 108 H Carbon Dioxide 30.0 Anion Gap 7 BUN 20 H Creatinine 0.73 Estimated GFR 76 L Random Glucose 127 H Calcium 8.5 Phosphorus 2.5 Magnesium 2.0 Total Bilirubin 0.2 AST 11 L ALT 19 Alkaline Phosphatase 125 H Total Protein 5.1 L Albumin 2.0 L Microbiology 08/25/17 09:25 Bronchial Washings - Bronchial Fungal Smear - Final No fungal elements seen 08/25/17 09:25 Bronchial Washings - Bronchial Fungal Culture - Final Assessment and Plan - Plan 81-year-old female admitted for healthcare associated pneumonia after outpatient treatment failure. Healthcare associated pneumonia Outpatient treatment failure Suspected resistance Penicillin allergy present Completed azithromycin and continue aztreonam IV and Levaquin per infectious disease Continue with supplemental oxygen ID and pulmonology following. Status post bronchoscopy 08/25/17 which showed mild tracheobronchitis, excess mucoid secretion and plugging. Follow-up with bronch cultures and preliminary sputum cultures shows heavy growth normal respiratory paul. Blood cultures shows no growth to date TRY TO WEAN OFF HIGH FLOW OXYGEN COPD exacerbation with a history of 2 L O2 dependence Hypoxia Continue oxygen as needed currently on 20 L a wean as tolerated ON HIGH FLOW OXYGEN Switch to Solu-Medrol IV and wean as tolerated, currently on 40MG every 12 Mucinex Appreciate pulmonology, Dr. Mendez following. TRY TO WEAN OFF HIGH FLOW OXYGEN Subacute right leg fracture/debility Patient was in PT as an outpatient at a alf facility Continue PT here. Suspect she will need to return to SNF for further rehabilitation. She is desiring [place] rehab. Hypertension, chronic essential Continue baseline treatment, currently on Norvasc, will start Vasotec IV as needed for uncontrolled blood pressure, will add Cozaar to the regimen Follow blood pressures Adjust treatments as needed General anxiety disorder Ativan as needed. ANEMIA AM LABS MAY NEED TRANSFUSION IN FUTURE HYPOKALEMIA WILL REPLACE POTASSIUM DVT prophylaxis Loveshar PATEL RN AND PATIENT AND FAMILY Discussed Condition With: RN AND PT AND CASE MANAGEMENT Discharge Planning: [facility] ONCE IMPROVED AND OFF HIGH FLOW OXYGEN
[2017-08-31] MEDS: Levofloxacin 500 mg Premix Inj 500 MG/100 ML PIGGYBACK IV.SIG SCH (13:34)
--- NOTE | 2017-08-31 14:45 | P.PNID ---
Subjective Remarks: Patient tells me that her breathing is better. O2 via nasal cannula. Coughing up phlegm. Afebrile. Denies chest pain. No nausea. No vomiting. Admitted with SOB from rehab facility. Consult requested for pneumonia. Antibiotics: Azithromycin. Aztreonam. Levaquin. Lines: peripheral IV intact Past Medical History: Chronic obstructive pulmonary disease, hypertension, anxiety disorder, right hip fracture, left leg fracture, status post ORIF on 07/05/2017, right wrist fracture. Allergies/Adverse Reactions: Allergies Penicillins Allergy (Intermediate, Verified 08/21/17 03:53) Blister Objective Vital Signs 08/30/17 15:00 08/30/17 15:30 08/30/17 16:00 Temperature 98.0 F Pulse Rate 97 H 98 H 100 H Respiratory Rate 29 H 28 H 36 H Blood Pressure 130/64 144/76 H 146/98 H Pulse Oximetry 96 94 L 93 L 08/30/17 16:30 08/30/17 17:31 08/30/17 17:49 Temperature Pulse Rate 94 H 93 H Respiratory Rate 29 H 23 Blood Pressure 156/71 H 112/65 Pulse Oximetry 92 L 08/30/17 19:00 08/30/17 19:30 08/30/17 19:53 Temperature Pulse Rate 106 H 97 H Respiratory Rate 24 25 H Blood Pressure 164/68 H 170/73 H Pulse Oximetry 91 L 92 L 94 L 08/30/17 20:00 08/30/17 20:30 08/30/17 21:00 Temperature Pulse Rate 97 H 94 H 103 H Respiratory Rate 26 H 26 H 51 H Blood Pressure 168/77 H 167/74 H 168/71 H Pulse Oximetry 92 L 94 L 86 L 08/30/17 21:30 08/30/17 22:00 08/30/17 22:30 Temperature Pulse Rate 94 H 87 81 Respiratory Rate 28 H 29 H 24 Blood Pressure 155/68 H 172/75 H 179/77 H Pulse Oximetry 91 L 95 94 L 08/30/17 23:00 08/31/17 00:00 08/31/17 04:00 Temperature 99.3 F Pulse Rate 77 80 83 Respiratory Rate 23 22 25 H Blood Pressure 162/72 H 166/76 H 178/79 H Pulse Oximetry 94 L 98 97 08/31/17 08:00 08/31/17 08:04 08/31/17 12:00 Temperature 98.0 F 98 F Pulse Rate 78 82 Respiratory Rate 20 33 H Blood Pressure 178/75 H 167/72 H Pulse Oximetry 100 100 87 L Intake & Output 08/30/17 08/31/17 08/31/17 18:59 06:59 18:59 Intake Total 780 / 780 340 / 340 100 / 100 Balance 780 / 780 340 / 340 100 / 100 Weight 43 kg Intake: IV 300 / 300 100 / 100 100 / 100 Azactam Inj 2 GM In NS Inj 100 200 / 200 100 / 100 100 / 100 ML @ 200 mls/hr IV.SIG Q8H KAYLA Rx#:[id number] Levaquin 500 mg Premix Inj 500 100 / 100 mg In 100 ml @ 100 mls/hr IV. SIG Q24H KAYLA Rx#:[id number] Oral 480 / 480 240 / 240 Other: # Voids 5 3 Date of Last Bowel Movement 08/30/17 08/31/17 08/30/17 # Bowel Movements 7 1 08/25/17 09:25 Bronchial Washings - Bronchial Fungal Smear - Final No fungal elements seen 08/25/17 09:25 Bronchial Washings - Bronchial Fungal Culture - Final Lab - Hematology Results 08/30/17 08/31/17 06:10 04:20 WBC 7.8 9.2 RBC 2.84 L 2.64 L Hgb 8.5 L 8.1 L Hct 25.6 L 23.9 L MCV 90.0 90.5 MCH 29.8 30.8 MCHC 33.1 34.0 RDW 14.8 15.2 Plt Count 280 246 MPV 8.2 8.0 Neut % (Auto) 94.2 H 96.1 H Lymph % (Auto) 3.6 L 2.0 L Pi[place] % (Auto) 1.9 1.8 Eos % (Auto) 0.1 0.0 Baso % (Auto) 0.2 0.1 Neut # (Auto) 7.3 8.8 H Lymph # (Auto) 0.3 L 0.2 L [place] # (Auto) 0.1 0.2 Eos # (Auto) 0.0 0.0 Baso # (Auto) 0.0 0.0 WBC Differential . . Differential Comment Auto diff final Auto diff final Lab - Chemistry Results 08/29/17 08/30/17 08/31/17 04:53 06:10 04:20 Sodium 142 145 Potassium 3.3 L 4.4 D Chloride 101 108 H Carbon Dioxide 31.9 30.0 Anion Gap 9 7 BUN 23 H 20 H Creatinine 0.85 0.73 Estimated GFR 64 L 76 L Random Glucose 101 127 H Hemoglobin A1c 5.7 Calcium 8.8 8.5 Phosphorus 3.2 2.5 Magnesium 2.1 2.0 Total Bilirubin 0.2 0.2 AST 9 L 11 L ALT 20 19 Alkaline Phosphatase 136 H 125 H Total Protein 5.4 L 5.1 L Albumin 2.1 L 2.0 L Imaging: ITS Impressions Chest CTA 08/21/17 00:00 CONCLUSION: 1. Left lower lobe consolidation and patchy infiltrate right upper lobe. 2. Small left pleural effusion. 3. Mild emphysema without mass. 4. No evidence for pulmonary embolism. 5. Coronary artery calcifications. 6. Multiple hepatic low densities. 7. Extensive calcification of the upper abdominal aorta. Chest X-Ray 08/25/17 06:00 CONCLUSION: 1. No significant interval change. 2. Stable small left pleural effusion and associated left lower lobe airspace consolidation. Physical Exam: PHYSICAL EXAMINATION: GENERAL: Frail. No acute distress. HEENT: Head is atraumatic. Extraocular movements grossly intact. Pupils reactive to light. No icterus. Oropharynx moist mucosa without lesions. NECK: Supple. No adenopathy. LUNGS: Bilateral rhonchi. HEART: Regular S1, S2. No audible murmurs, rubs or gallops. ABDOMEN: Bowel sounds present. Soft, nontender. No masses palpable. EXTREMITIES: No clubbing or cyanosis. Multiple ecchymotic lesions of the legs and upper extremities. No clubbing, cyanosis or edema. SKIN: No diffuse rash. NEUROLOGIC: Alert and oriented. No gross focal findings. PSYCHIATRIC: Mood is calm, Cooperative. Assessment and Plan - Plan IMPRESSION: 1. Pneumonia involving both lower lobes of the lung. Post bronchoscopy. Bronchoscopy culture now reported as nl paul. 2. Status post fracture of the right leg. 3. History of chronic obstructive pulmonary disease. 4. PENICILLIN ALLERGY. RECOMMENDATIONS: 1. Continue aztreonam. 2. Continue azithromycin. 3. Continue Levaquin. 4. Monitor clinical status. 5. Repeat CXR today. 6. Physical therapy for exercises.
[2017-08-31] MEDS: Temazepam 15 MG Capsule PO PRN (20:53)
--- NOTE | 2017-09-01 04:47 | XR ---
EXAM DATE: 09/01/2017 4:05 AM EDT AGE/SEX: 81 years / Female INDICATIONS: . Short of breath. CLINICAL DATA: This is the patient's subsequent encounter. Patient reports that signs and symptoms h ave been present for 4 - 6 days and indicates a pain score of 0/10. MEDICAL/SURGICAL HISTORY: Chronic obstructive pulmonary disease. Hypertension. None. COMPARISON: [facility] [place], CHEST 1V SINGLE AP, 08/25/2017. . FINDINGS: Bilateral mostly basilar airspace disease and small pleural effusions. No pneumothorax. Heart size up per limits normal. CONCLUSION: Bilateral mostly basilar airspace disease and small effusions similar to prior exam. Electronically signed by: Ramses Gonzalez MD 09/01/2017 4:46 AM EDT
[2017-09-01 04:54] LABS: Baso % (Auto) 0.1 % (0.0-2.0); Eos % (Auto) 0.1 % (0.0-4.0); Hemoglobin 7.9 gm/dL (11.6-15.3); Lymph # (Auto) 0.1 th/mm3 (1.0-4.8); Lymph % (Auto) 1.4 % (9.0-44.0); Mean Corpuscular HGB Conc 32.9 % (32.0-36.0); Mean Corpuscular Hemoglobin 29.8 pg (27.0-34.0); Mean Corpuscular Volume 90.6 fL (80.0-100.0); Mean Platelet Volume 7.8 fL (7.0-11.0); Mono # (Auto) 0.1 th/mm3 (0.0-0.9); Mono % (Auto) 1.1 % (0.0-8.0); Neut # (Auto) 8.1 th/mm3 (1.8-7.7); Neut % (Auto) 97.3 % (16.0-70.0); Platelet Count 249 th/mm3 (150-450); Red Blood Count 2.64 mil/mm3 (4.00-5.30); Red Cell Distribution Width 15.1 % (11.6-17.2); White Blood Count 8.3 th/mm3 (4.0-11.0)
[2017-09-01 05:00] LABS: Alanine Aminotransferase 17 U/L (10-53); Albumin 1.9 g/dL (3.4-5.0); Anion Gap 4 meq/L (5-15); Aspartate Aminotransferase 8 U/L (15-37); Blood Urea Nitrogen 20 mg/dL (7-18); Calcium 8.2 mg/dL (8.5-10.1); Carbon Dioxide 31.9 meq/L (21.0-32.0); Chloride 108 meq/L (98-107); Glomerular Filtration Rate 84 mL/min (>89); Glucose,Random 123 mg/dL (74-106); Magnesium 1.8 mg/dL (1.5-2.5); Potassium 4.2 meq/L (3.5-5.1); Sodium 144 meq/L (136-145)
[2017-09-01 05:02] LABS: Alkaline Phosphatase 119 U/L (45-117); Total Protein 4.9 g/dL (6.4-8.2)
[2017-09-01 05:23] LABS: Platelet Estimate Normal (Normal); Platelet Morphology Normal (Normal)
[2017-09-01] MEDS: Aztreonam Inj 2 GM in Sodium Chloride 0.9% Inj 100 ML IV.SIG SCH ×3 (06:39→23:07)
[2017-09-01] MEDS: Heparin - SQ 10,000 UNITS/ML Vial SQ SCH ×2 (06:39→18:20)
[2017-09-01] MEDS: Tiotropium Bromide 18 MCG/ACT Inhaler INH SCH (09:01)
[2017-09-01] MEDS: Baclofen 10 MG Tablet PO SCH ×2 (09:02→21:02)
[2017-09-01] MEDS: Senna/Docusate Sodium 8.6/50 MG Tablet PO SCH ×2 (09:02→21:03)
[2017-09-01] MEDS: Lactobacillus Acidophilus/L. Spores Tablet PO SCH ×3 (09:02→18:19)
[2017-09-01] MEDS: Furosemide 40 MG Tablet PO SCH (09:02)
[2017-09-01] MEDS: Calcium Carbonate 500 MG Tablet PO SCH ×2 (09:02→21:02)
[2017-09-01] MEDS: Vitamin B Complex/Vit C/Folic Tablet PO SCH (09:03)
[2017-09-01] MEDS: amLODIPine 10 MG Tablet PO SCH (09:03)
[2017-09-01] MEDS: Metoprolol Tartrate 50 MG Tablet PO SCH ×2 (09:03→21:02)
[2017-09-01] MEDS: MethylPREDNISolone Sod Succinate Inj 40 MG/ML Vial IV.PUSH SCH ×2 (09:04→21:00)
--- NOTE | 2017-09-01 10:29 | P.PNIM ---
Subjective Interval history: 08-28 PATIENT DENIES BEING SOB AT THIS TIME BUT REMAINS ON HIGH FLOW OXYGEN BY NASAL CANNULA AT 15L OR 60% DW RN AND PT INCREASE ACTIVITY AM LABS IS 08-29 still on high flow oxygen wean as tolerated up activity dw RN AND PT AND FAMILY AM LABS 08-30 STILL ON HIGH FLOW OXYGEN 15 LITERS HYPOKALEMIA WILL REPLACE DW RN AND PT NEEDS INCREASED ACTIVITY HAD A DESATURATION EARLIER TODAY KEEP IN ICU 08-31 STILL ON HIGH FLOW OXYGEN STILL ON 20L HIGH FLOW OXYGEN STILL WITH RHONCHI AND WHEEZES AM LABS PULMONARY TOILET 09-01 REMAINS ON HIGH FLOW OXYGEN STILL ON 20L HIGH FLOW OXYGEN CONTINUE PULMONARY TOILET DW RN AND PT ADJUST BP MEDS NOT AT GOAL ADD HYDRALAZINE 25MG TID MAY NEED TO INCREASE Physical Exam Vital signs: Vital Signs 08/31/17 12:00 08/31/17 16:00 08/31/17 17:00 Temperature 98 F 98.1 F Pulse Rate 82 91 H Respiratory Rate 33 H 33 H Blood Pressure 167/72 H 163/73 H Pulse Oximetry 87 L 95 94 L 08/31/17 20:00 08/31/17 20:04 09/01/17 00:00 Temperature 98 F Pulse Rate 90 72 Respiratory Rate 24 22 Blood Pressure 146/88 H 145/67 H Pulse Oximetry 94 L 94 L 94 L 09/01/17 01:00 09/01/17 01:30 09/01/17 02:00 Temperature Pulse Rate 71 70 81 Respiratory Rate 19 18 25 H Blood Pressure 147/69 H 149/70 H 161/115 H Pulse Oximetry 95 95 92 L 09/01/17 02:04 09/01/17 02:05 09/01/17 02:30 Temperature Pulse Rate 83 81 75 Respiratory Rate 26 H 26 H 25 H Blood Pressure 173/74 H 165/77 H 161/75 H Pulse Oximetry 92 L 91 L 93 L 09/01/17 03:00 09/01/17 03:01 09/01/17 03:30 Temperature Pulse Rate 70 70 70 Respiratory Rate 18 Blood Pressure 175/72 H 161/70 H Pulse Oximetry 96 96 95 09/01/17 04:00 09/01/17 04:30 09/01/17 05:00 Temperature Pulse Rate 77 71 73 Respiratory Rate Blood Pressure 165/75 H 167/77 H 176/77 H Pulse Oximetry 97 97 96 09/01/17 05:30 09/01/17 08:00 09/01/17 08:20 Temperature 98.3 F Pulse Rate 73 74 Respiratory Rate 19 19 Blood Pressure 169/77 H 169/74 H Pulse Oximetry 96 97 96 Intake & Output 08/31/17 09/01/17 09/01/17 18:59 06:59 18:59 Intake Total 800 / 800 340 / 340 Output Total 750 / 750 200 / 200 Balance 50 / 50 140 / 140 Weight 42.5 kg Intake: IV 300 / 300 100 / 100 Azactam Inj 2 GM In NS Inj 100 200 / 200 100 / 100 ML @ 200 mls/hr IV.SIG Q8H KAYLA Rx#:[id number] Levaquin 500 mg Premix Inj 500 100 / 100 mg In 100 ml @ 100 mls/hr IV. SIG Q24H KAYLA Rx#:[id number] Oral 500 / 500 240 / 240 Output: Urine 750 / 750 200 / 200 Other: # Voids 2 Date of Last Bowel Movement 08/30/17 08/30/17 08/30/17 Narrative: GENERAL: AWAKE AND ALERT AND ORIENTED X3 ON HIGH FLOW OXYGEN 15L 60%- VERY THIN APPEARING FEMALE SKIN: Warm and dry. HEAD: Atraumatic. Normocephalic. EYES: Pupils equal and round. No scleral icterus. No injection or drainage. ENT: No nasal bleeding or discharge. Mucous membranes pink and moist. NECK: Trachea midline. No JVD. CARDIOVASCULAR: Regular rate and rhythm. S1, S2 NO S3 OR S4 RESPIRATORY: No accessory muscle use. DECREASED BS B;. Breath sounds equal bilaterally. FEW SCATTERED RHONCHI- GASTROINTESTINAL: Abdomen soft, non-tender, nondistended. Hepatic and splenic margins not palpable. MUSCULOSKELETAL: Extremities without clubbing, cyanosis, or edema. No obvious deformities. NEUROLOGICAL: Awake and alert. No obvious cranial nerve deficits. Motor grossly within normal limits. 4 out of 5 muscle strength in the arms and legs. Normal speech. PSYCHIATRIC: Appropriate mood and affect; insight and judgment normal. Results - Labs CBC & Chem 7: 09/01/17 03:45 09/01/17 03:45 Laboratory Results - last 24 hr 09/01/17 09/01/17 03:45 03:45 WBC 8.3 RBC 2.64 L Hgb 7.9 L Hct 24.0 L MCV 90.6 MCH 29.8 MCHC 32.9 RDW 15.1 Plt Count 249 MPV 7.8 Prelim Diff (Auto) Slide review pending Neut % (Auto) 97.3 H Lymph % (Auto) 1.4 L [place] % (Auto) 1.1 Eos % (Auto) 0.1 Baso % (Auto) 0.1 Neut # (Auto) 8.1 H Lymph # (Auto) 0.1 L [place] # (Auto) 0.1 Eos # (Auto) 0.0 Baso # (Auto) 0.0 WBC Differential Manual diff final Seg Neuts % (Manual) 100 H Abs Neuts (Manual) 8.3 H Differential Comment . Platelet Estimate Normal Platelet Morphology Normal Sodium 144 Potassium 4.2 Chloride 108 H Carbon Dioxide 31.9 Anion Gap 4 L BUN 20 H Creatinine 0.67 Estimated GFR 84 L Random Glucose 123 H Calcium 8.2 L Phosphorus 3.0 Magnesium 1.8 Total Bilirubin 0.3 AST 8 L ALT 17 Alkaline Phosphatase 119 H Total Protein 4.9 L Albumin 1.9 L - Imaging Impressions Chest X-Ray 09/01/17 06:00 CONCLUSION: Bilateral mostly basilar airspace disease and small effusions similar to prior exam. Assessment and Plan - Plan 81-year-old female admitted for healthcare associated pneumonia after outpatient treatment failure. Healthcare associated pneumonia Outpatient treatment failure Suspected resistance Penicillin allergy present Completed azithromycin and continue aztreonam IV and Levaquin per infectious disease Continue with supplemental oxygen ID and pulmonology following. Status post bronchoscopy 08/25/17 which showed mild tracheobronchitis, excess mucoid secretion and plugging. Follow-up with bronch cultures and preliminary sputum cultures shows heavy growth normal respiratory paul. Blood cultures shows no growth to date TRY TO WEAN OFF HIGH FLOW OXYGEN COPD exacerbation with a history of 2 L O2 dependence Hypoxia Continue oxygen as needed currently on 20 L a wean as tolerated ON HIGH FLOW OXYGEN Switch to Solu-Medrol IV and wean as tolerated, currently on 40MG every 12 Mucinex Appreciate pulmonology, Dr. Mendez following. TRY TO WEAN OFF HIGH FLOW OXYGEN Subacute right leg fracture/debility Patient was in PT as an outpatient at a half-way facility Continue PT here. Suspect she will need to return to SNF for further rehabilitation. She is desiring [facility]. Hypertension, chronic essential Continue baseline treatment, currently on Norvasc, will start Vasotec IV as needed for uncontrolled blood pressure, will add Cozaar to the regimen Follow blood pressures Adjust treatments as needed HYDRALAZINE 25MG TID General anxiety disorder Ativan as needed. ANEMIA AM LABS MAY NEED TRANSFUSION IN FUTURE HYPOKALEMIA WILL REPLACE POTASSIUM DVT prophylaxis Rosario PATEL RN AND PATIENT AND FAMILY Discussed Condition With: RN AND PT Discharge Planning: [facility] ONCE IMPROVED AND OFF HIGH FLOW OXYGEN
[2017-09-01] MEDS: Levofloxacin 500 mg Premix Inj 500 MG/100 ML PIGGYBACK IV.SIG SCH (12:46)
[2017-09-01] MEDS: hydrALAZINE 25 MG Tablet PO SCH ×2 (12:46→18:19)
--- NOTE | 2017-09-01 15:23 | P.PNID ---
Subjective Remarks: Patient tells me that she feels okay. Says her breathing is better. O2 via nasal cannula. Denies cough. Afebrile. Admitted with SOB from rehab facility. Consult requested for pneumonia. Antibiotics: Azithromycin. Aztreonam. Levaquin. Lines: peripheral IV intact Past Medical History: Chronic obstructive pulmonary disease, hypertension, anxiety disorder, right hip fracture, left leg fracture, status post ORIF on 07/05/2017, right wrist fracture. Allergies/Adverse Reactions: Allergies Penicillins Allergy (Intermediate, Verified 08/21/17 03:53) Blister Objective Vital Signs 08/31/17 16:00 08/31/17 17:00 08/31/17 20:00 Temperature 98.1 F 98 F Pulse Rate 91 H 90 Respiratory Rate 33 H 24 Blood Pressure 163/73 H 146/88 H Pulse Oximetry 95 94 L 94 L 08/31/17 20:04 09/01/17 00:00 09/01/17 01:00 Temperature Pulse Rate 72 71 Respiratory Rate 22 19 Blood Pressure 145/67 H 147/69 H Pulse Oximetry 94 L 94 L 95 09/01/17 01:30 09/01/17 02:00 09/01/17 02:04 Temperature Pulse Rate 70 81 83 Respiratory Rate 18 25 H 26 H Blood Pressure 149/70 H 161/115 H 173/74 H Pulse Oximetry 95 92 L 92 L 09/01/17 02:05 09/01/17 02:30 09/01/17 03:00 Temperature Pulse Rate 81 75 70 Respiratory Rate 26 H 25 H 19 Blood Pressure 165/77 H 161/75 H Pulse Oximetry 91 L 93 L 96 09/01/17 03:01 09/01/17 03:30 09/01/17 04:00 Temperature Pulse Rate 70 70 77 Respiratory Rate 19 18 19 Blood Pressure 175/72 H 161/70 H 165/75 H Pulse Oximetry 96 95 97 09/01/17 04:30 09/01/17 05:00 09/01/17 05:30 Temperature Pulse Rate 71 73 73 Respiratory Rate 19 19 19 Blood Pressure 167/77 H 176/77 H 169/77 H Pulse Oximetry 97 96 96 09/01/17 08:00 09/01/17 08:20 09/01/17 13:56 Temperature 98.3 F Pulse Rate 74 98 H Respiratory Rate 19 15 Blood Pressure 169/74 H Pulse Oximetry 97 96 Intake & Output 08/31/17 09/01/17 09/01/17 18:59 06:59 18:59 Intake Total 800 / 800 340 / 340 Output Total 750 / 750 200 / 200 Balance 50 / 50 140 / 140 Weight 42.5 kg Intake: IV 300 / 300 100 / 100 Azactam Inj 2 GM In NS Inj 100 200 / 200 100 / 100 ML @ 200 mls/hr IV.SIG Q8H KALYA Rx#:[id number] Levaquin 500 mg Premix Inj 500 100 / 100 mg In 100 ml @ 100 mls/hr IV. SIG Q24H KAYLA Rx#:[id number] Oral 500 / 500 240 / 240 Output: Urine 750 / 750 200 / 200 Other: # Voids 2 Date of Last Bowel Movement 08/30/17 08/30/17 08/30/17 08/25/17 09:25 Bronchial Washings - Bronchial Acid Fast Bacilli Smear - Final No acid fast bacilli seen 08/25/17 09:25 Bronchial Washings - Bronchial Mycobacterial Culture - Preliminary No growth in 1 week 08/25/17 09:25 Bronchial Washings - Bronchial Fungal Smear - Final No fungal elements seen 08/25/17 09:25 Bronchial Washings - Bronchial Fungal Culture - Final Lab - Hematology Results 08/31/17 09/01/17 04:20 03:45 WBC 9.2 8.3 RBC 2.64 L 2.64 L Hgb 8.1 L 7.9 L Hct 23.9 L 24.0 L MCV 90.5 90.6 MCH 30.8 29.8 MCHC 34.0 32.9 RDW 15.2 15.1 Plt Count 246 249 MPV 8.0 7.8 Prelim Diff (Auto) Slide review pending Neut % (Auto) 96.1 H 97.3 H Lymph % (Auto) 2.0 L 1.4 L [place] % (Auto) 1.8 1.1 Eos % (Auto) 0.0 0.1 Baso % (Auto) 0.1 0.1 Neut # (Auto) 8.8 H 8.1 H Lymph # (Auto) 0.2 L 0.1 L [place] # (Auto) 0.2 0.1 Eos # (Auto) 0.0 0.0 Baso # (Auto) 0.0 0.0 WBC Differential . Manual diff final Seg Neuts % (Manual) 100 H Abs Neuts (Manual) 8.3 H Differential Comment Auto diff final . Platelet Estimate Normal Platelet Morphology Normal Lab - Chemistry Results 08/31/17 09/01/17 04:20 03:45 Sodium 145 144 Potassium 4.4 D 4.2 Chloride 108 H 108 H Carbon Dioxide 30.0 31.9 Anion Gap 7 4 L BUN 20 H 20 H Creatinine 0.73 0.67 Estimated GFR 76 L 84 L Random Glucose 127 H 123 H Calcium 8.5 8.2 L Phosphorus 2.5 3.0 Magnesium 2.0 1.8 Total Bilirubin 0.2 0.3 AST 11 L 8 L ALT 19 17 Alkaline Phosphatase 125 H 119 H Total Protein 5.1 L 4.9 L Albumin 2.0 L 1.9 L Imaging: ITS Impressions Chest CTA 08/21/17 00:00 CONCLUSION: 1. Left lower lobe consolidation and patchy infiltrate right upper lobe. 2. Small left pleural effusion. 3. Mild emphysema without mass. 4. No evidence for pulmonary embolism. 5. Coronary artery calcifications. 6. Multiple hepatic low densities. 7. Extensive calcification of the upper abdominal aorta. Chest X-Ray 09/01/17 06:00 CONCLUSION: Bilateral mostly basilar airspace disease and small effusions similar to prior exam. Physical Exam: PHYSICAL EXAMINATION: GENERAL: Frail. No acute distress. HEENT: No icterus. Oropharynx moist mucosa without lesions. NECK: Supple. No adenopathy. LUNGS: Slight rhonchi at the left base. HEART: Regular S1, S2. No audible murmurs, rubs or gallops. ABDOMEN: Bowel sounds present. Soft, nontender. No masses palpable. EXTREMITIES: No clubbing or cyanosis. Multiple ecchymotic lesions of the legs and upper extremities. No clubbing, cyanosis or edema. SKIN: No rash. NEUROLOGIC: Alert and oriented. No gross focal findings. PSYCHIATRIC: Mood is calm, Cooperative. Assessment and Plan - Plan IMPRESSION: 1. Pneumonia involving both lower lobes of the lung. Post bronchoscopy. Bronchoscopy culture negative. Chest x-ray looks improved. 2. Status post fracture of the right leg. 3. History of chronic obstructive pulmonary disease. 4. PENICILLIN ALLERGY. RECOMMENDATIONS: 1. Continue aztreonam for a few more days. 2. Continue azithromycin for a few more days. 3. Stop Levaquin. 4. Monitor clinical status. 5. Physical therapy exercises.
--- NOTE | 2017-09-01 17:14 | P.PNPL ---
Subjective Interval history: 81 YOWF with Pn,COPD,RF On high flow 02 Breathing better no Fever Gets anxious and desaturates However, when calms down, sats improved Physical Exam Vital signs: Vital Signs 08/31/17 20:00 08/31/17 20:04 09/01/17 00:00 Temperature 98 F Pulse Rate 90 72 Respiratory Rate 24 22 Blood Pressure 146/88 H 145/67 H Pulse Oximetry 94 L 94 L 94 L 09/01/17 01:00 09/01/17 01:30 09/01/17 02:00 Temperature Pulse Rate 71 70 81 Respiratory Rate 19 18 25 H Blood Pressure 147/69 H 149/70 H 161/115 H Pulse Oximetry 95 95 92 L 09/01/17 02:04 09/01/17 02:05 09/01/17 02:30 Temperature Pulse Rate 83 81 75 Respiratory Rate 26 H 26 H 25 H Blood Pressure 173/74 H 165/77 H 161/75 H Pulse Oximetry 92 L 91 L 93 L 09/01/17 03:00 09/01/17 03:01 09/01/17 03:30 Temperature Pulse Rate 70 70 70 Respiratory Rate 19 19 18 Blood Pressure 175/72 H 161/70 H Pulse Oximetry 96 96 95 09/01/17 04:00 09/01/17 04:30 09/01/17 05:00 Temperature Pulse Rate 77 71 73 Respiratory Rate 19 19 19 Blood Pressure 165/75 H 167/77 H 176/77 H Pulse Oximetry 97 97 96 09/01/17 05:30 09/01/17 08:00 09/01/17 08:20 Temperature 98.3 F Pulse Rate 73 74 Respiratory Rate 19 19 Blood Pressure 169/77 H 169/74 H Pulse Oximetry 96 97 96 09/01/17 08:30 09/01/17 09:00 09/01/17 09:02 Temperature Pulse Rate 76 95 H 94 H Respiratory Rate 20 33 H 32 H Blood Pressure 184/77 H 172/135 H 194/113 H Pulse Oximetry 96 89 L 90 L 09/01/17 09:30 09/01/17 10:00 09/01/17 10:30 Temperature Pulse Rate 93 H 72 77 Respiratory Rate 31 H 20 23 Blood Pressure 150/67 H 124/58 L 152/67 H Pulse Oximetry 85 L 92 L 92 L 09/01/17 11:00 09/01/17 12:00 09/01/17 13:00 Temperature 98.0 F Pulse Rate 75 82 89 Respiratory Rate 25 H 26 H 28 H Blood Pressure 165/74 H 164/72 H 145/66 H Pulse Oximetry 90 L 94 L 92 L 09/01/17 13:56 09/01/17 14:00 09/01/17 15:00 Temperature Pulse Rate 98 H 97 H 95 H Respiratory Rate 15 31 H 28 H Blood Pressure 144/65 H 153/70 H Pulse Oximetry 92 L 90 L 09/01/17 16:00 Temperature 98.2 F Pulse Rate 93 H Respiratory Rate 33 H Blood Pressure 169/77 H Pulse Oximetry 88 L Intake & Output 08/31/17 09/01/17 09/01/17 18:59 06:59 18:59 Intake Total 800 / 800 340 / 340 100 / 100 Output Total 750 / 750 200 / 200 Balance 50 / 50 140 / 140 100 / 100 Weight 42.5 kg Intake: IV 300 / 300 100 / 100 100 / 100 Azactam Inj 2 GM In NS Inj 100 200 / 200 100 / 100 100 / 100 ML @ 200 mls/hr IV.SIG Q8H KAYLA Rx#:[id number] Levaquin 500 mg Premix Inj 500 100 / 100 mg In 100 ml @ 100 mls/hr IV. SIG Q24H KAYLA Rx#:[id number] Oral 500 / 500 240 / 240 Output: Urine 750 / 750 200 / 200 Other: # Voids 2 Date of Last Bowel Movement 08/30/17 08/30/17 08/30/17 GENERAL: Frail elderly WF, mild sob SKIN: Warm and dry. HEAD: Normocephalic. EYES: No scleral icterus. No injection or drainage. NECK: Supple, trachea midline. No JVD or lymphadenopathy. CARDIOVASCULAR: Regular rate and rhythm without murmurs, gallops, or rubs. RESPIRATORY: Breath sounds equal bilaterally. No accessory muscle use. GASTROINTESTINAL: Abdomen soft, non-tender, nondistended. MUSCULOSKELETAL: No cyanosis, or edema. BACK: Nontender without obvious deformity. No CVA tenderness. Assessment and Plan - Plan IMPRESSION: Hypoxic RF COPD Pneumonia HTN Anxiety PLAN: Supplement 02 with High flow Aerosol nebs Abx per ID DVT prophylaxis. Add Buspar 5 mg tid
[2017-09-01] MEDS: Temazepam 15 MG Capsule PO PRN (22:59)
[2017-09-02 05:26] LABS: Baso % (Auto) 0.1 % (0.0-2.0); Eos % (Auto) 0.1 % (0.0-4.0); Hematocrit 23.4 % (35.0-46.0); Hemoglobin 7.8 gm/dL (11.6-15.3); Lymph # (Auto) 0.1 th/mm3 (1.0-4.8); Lymph % (Auto) 1.9 % (9.0-44.0); Mean Corpuscular HGB Conc 33.3 % (32.0-36.0); Mean Corpuscular Hemoglobin 30.2 pg (27.0-34.0); Mean Corpuscular Volume 90.7 fL (80.0-100.0); Mono # (Auto) 0.1 th/mm3 (0.0-0.9); Mono % (Auto) 1.7 % (0.0-8.0); Neut # (Auto) 6.8 th/mm3 (1.8-7.7); Neut % (Auto) 96.2 % (16.0-70.0); Platelet Count 263 th/mm3 (150-450); Red Blood Count 2.58 mil/mm3 (4.00-5.30); Red Cell Distribution Width 15.1 % (11.6-17.2)
[2017-09-02 05:53] LABS: Albumin 1.9 g/dL (3.4-5.0); Anion Gap 8 meq/L (5-15); Aspartate Aminotransferase 8 U/L (15-37); Blood Urea Nitrogen 18 mg/dL (7-18); Calcium 8.5 mg/dL (8.5-10.1); Carbon Dioxide 31.6 meq/L (21.0-32.0); Chloride 102 meq/L (98-107); Glomerular Filtration Rate Greater Than 89 mL/min (>89); Glucose,Random 124 mg/dL (74-106); Potassium 3.8 meq/L (3.5-5.1); Sodium 142 meq/L (136-145)
[2017-09-02 05:58] LABS: Alanine Aminotransferase 14 U/L (10-53); Alkaline Phosphatase 110 U/L (45-117); Phosphorus 2.9 mg/dL (2.5-4.9); Total Protein 4.8 g/dL (6.4-8.2)
[2017-09-02] MEDS: Aztreonam Inj 2 GM in Sodium Chloride 0.9% Inj 100 ML IV.SIG SCH ×2 (06:41→14:00)
[2017-09-02] MEDS: Heparin - SQ 10,000 UNITS/ML Vial SQ SCH ×2 (06:46→18:23)
[2017-09-02] MEDS: Lactobacillus Acidophilus/L. Spores Tablet PO SCH ×3 (08:27→18:23)
[2017-09-02] MEDS: Vitamin B Complex/Vit C/Folic Tablet PO SCH (08:27)
[2017-09-02] MEDS: Baclofen 10 MG Tablet PO SCH ×2 (08:27→20:25)
[2017-09-02] MEDS: amLODIPine 10 MG Tablet PO SCH (08:27)
[2017-09-02] MEDS: Calcium Carbonate 500 MG Tablet PO SCH ×2 (08:27→20:25)
[2017-09-02] MEDS: hydrALAZINE 25 MG Tablet PO SCH ×3 (08:27→18:23)
[2017-09-02] MEDS: Senna/Docusate Sodium 8.6/50 MG Tablet PO SCH ×2 (08:28→20:25)
[2017-09-02] MEDS: Metoprolol Tartrate 50 MG Tablet PO SCH ×2 (08:28→20:25)
[2017-09-02] MEDS: MethylPREDNISolone Sod Succinate Inj 40 MG/ML Vial IV.PUSH SCH (08:28)
[2017-09-02] MEDS: Furosemide 40 MG Tablet PO SCH (08:28)
[2017-09-02] MEDS: Tiotropium Bromide 18 MCG/ACT Inhaler INH SCH (08:29)
--- NOTE | 2017-09-02 14:47 | P.PNIM ---
Subjective Interval history: Patient states that her breathing is better. No active shortness of breath. No chest pain. No other concerns of chills or fever. Physical Exam Vital signs: Vital Signs 09/01/17 15:00 09/01/17 16:00 09/01/17 17:00 Temperature 98.2 F Pulse Rate 95 H 93 H 85 Respiratory Rate 28 H 33 H 23 Blood Pressure 153/70 H 169/77 H 138/64 Pulse Oximetry 90 L 88 L 96 09/01/17 18:00 09/01/17 19:00 09/01/17 20:00 Temperature 98.0 F Pulse Rate 94 H 99 H 94 H Respiratory Rate 27 H 35 H 32 H Blood Pressure 166/74 H 158/71 H 173/80 H Pulse Oximetry 89 L 91 L 89 L 09/01/17 20:12 09/01/17 21:00 09/01/17 22:00 Temperature Pulse Rate 97 H 78 Respiratory Rate 33 H 31 H Blood Pressure 173/80 H 157/74 H Pulse Oximetry 90 L 91 L 94 L 09/01/17 23:00 09/02/17 00:00 09/02/17 01:00 Temperature 98.2 F Pulse Rate 81 83 78 Respiratory Rate 33 H 32 H 23 Blood Pressure 162/72 H 149/69 H 161/74 H Pulse Oximetry 90 L 91 L 95 09/02/17 04:00 09/02/17 07:59 09/02/17 08:00 Temperature 98.5 F 98.1 F Pulse Rate Respiratory Rate 24 Blood Pressure Pulse Oximetry 93 L 09/02/17 12:00 Temperature 98.3 F Pulse Rate Respiratory Rate Blood Pressure Pulse Oximetry Intake & Output 09/01/17 09/02/17 09/02/17 18:59 06:59 18:59 Intake Total 725 / 725 820 / 820 100 / 100 Output Total 675 / 675 0 / 0 Balance 50 / 50 820 / 820 100 / 100 Weight 43.5 kg Intake: IV 200 / 200 100 / 100 100 / 100 Azactam Inj 2 GM In NS Inj 100 200 / 200 100 / 100 100 / 100 ML @ 200 mls/hr IV.SIG Q8H KAYLA Rx#:[id number] Oral 525 / 525 720 / 720 Output: Urine 675 / 675 Stool 0 / 0 Other: # Voids 2 # Incontinent Voids 2 2 Date of Last Bowel Movement 08/30/17 08/30/17 09/02/17 # Bowel Movements 0 Narrative: GENERAL: Well-nourished well-developed white female sitting up in bed. SKIN: Warm and dry. HEAD: Atraumatic. Normocephalic. EYES: Pupils equal and round. No scleral icterus. No injection or drainage. ENT: No nasal bleeding or discharge. Mucous membranes pink and moist. NECK: Trachea midline. No JVD. CARDIOVASCULAR: Regular rate and rhythm. RESPIRATORY: No accessory muscle use. Diminished breath sounds with few rhonchi and wheezes bilaterally GASTROINTESTINAL: Abdomen soft, non-tender, nondistended. Hepatic and splenic margins not palpable. MUSCULOSKELETAL: Extremities without clubbing, cyanosis, or edema. No obvious deformities. NEUROLOGICAL: Awake and alert. To person place no obvious cranial nerve deficits. Results - Labs CBC & Chem 7: 09/02/17 04:16 09/02/17 04:16 Laboratory Results - last 24 hr 09/02/17 09/02/17 04:16 04:16 WBC 7.0 RBC 2.58 L Hgb 7.8 L Hct 23.4 L MCV 90.7 MCH 30.2 MCHC 33.3 RDW 15.1 Plt Count 263 MPV 8.0 Neut % (Auto) 96.2 H Lymph % (Auto) 1.[address] [facility] % (Auto) 1.7 Eos % (Auto) 0.1 Baso % (Auto) 0.1 Neut # (Auto) 6.8 Lymph # (Auto) 0.[address] [facility] # (Auto) 0.1 Eos # (Auto) 0.0 Baso # (Auto) 0.0 WBC Differential . Differential Comment Auto diff final Sodium 142 Potassium 3.8 Chloride 102 Carbon Dioxide 31.6 Anion Gap 8 BUN 18 Creatinine 0.59 Estimated GFR Greater than 89 Random Glucose 124 H Calcium 8.5 Phosphorus 2.9 Magnesium 2.0 Total Bilirubin 0.2 AST 8 L ALT 14 Alkaline Phosphatase 110 Total Protein 4.8 L Albumin 1.9 L Microbiology 08/25/17 09:25 Bronchial Washings - Bronchial Acid Fast Bacilli Smear - Final No acid fast bacilli seen 08/25/17 09:25 Bronchial Washings - Bronchial Mycobacterial Culture - Preliminary No growth in 1 week Assessment and Plan - Plan 81-year-old female admitted for healthcare associated pneumonia after outpatient treatment failure. Healthcare associated pneumonia Outpatient treatment failure Suspected resistance Penicillin allergy present Continue azithromycin and continue aztreonam IV Discontinued Levaquin per infectious disease Continue with supplemental oxygen ID and pulmonology following. Status post bronchoscopy 08/25/17 which showed mild tracheobronchitis, excess mucoid secretion and plugging. Follow-up with bronch cultures and preliminary sputum cultures shows heavy growth normal respiratory paul. Blood cultures shows no growth to date COPD exacerbation with a history of 2 L O2 dependence Hypoxia Continue oxygen as needed currently on 5 L and need to wean as tolerated Switch to Solu-Medrol IV and wean as tolerated, currently on 40 every 12 Mucinex Appreciate pulmonology, Dr. Mendez following. Subacute right leg fracture/debility Patient was in PT as an outpatient at a [facility] facility Continue PT here. Suspect she will need to return to SNF for further rehabilitation. She is desiring [facility]. Hypertension, chronic essential Continue baseline treatment, currently on Norvasc and Cozaar, will start Vasotec IV as needed for uncontrolled blood pressure Follow blood pressures Adjust treatments as needed General anxiety disorder Ativan as needed. DVT prophylaxis Lovenox Discharge Planning: To [facility] when stable.
--- NOTE | 2017-09-02 14:58 | P.PNID ---
Subjective Remarks: Patient reports that she feels okay. On high flow oxygen. Saturation 94%. Has wet cough and sounds congested. Denies chest pain Afebrile. Admitted with SOB from rehab facility. Consult requested for pneumonia. Bronchoscopy/ culture has been negative. Past Medical History: Chronic obstructive pulmonary disease, hypertension, anxiety disorder, right hip fracture, left leg fracture, status post ORIF on 07/05/2017, right wrist fracture. Allergies/Adverse Reactions: Allergies Penicillins Allergy (Intermediate, Verified 08/21/17 03:53) Blister Objective Vital Signs 09/01/17 15:00 09/01/17 16:00 09/01/17 17:00 Temperature 98.2 F Pulse Rate 95 H 93 H 85 Respiratory Rate 28 H 33 H 23 Blood Pressure 153/70 H 169/77 H 138/64 Pulse Oximetry 90 L 88 L 96 09/01/17 18:00 09/01/17 19:00 09/01/17 20:00 Temperature 98.0 F Pulse Rate 94 H 99 H 94 H Respiratory Rate 27 H 35 H 32 H Blood Pressure 166/74 H 158/71 H 173/80 H Pulse Oximetry 89 L 91 L 89 L 09/01/17 20:12 09/01/17 21:00 09/01/17 22:00 Temperature Pulse Rate 97 H 78 Respiratory Rate 33 H 31 H Blood Pressure 173/80 H 157/74 H Pulse Oximetry 90 L 91 L 94 L 09/01/17 23:00 09/02/17 00:00 09/02/17 01:00 Temperature 98.2 F Pulse Rate 81 83 78 Respiratory Rate 33 H 32 H 23 Blood Pressure 162/72 H 149/69 H 161/74 H Pulse Oximetry 90 L 91 L 95 09/02/17 04:00 09/02/17 07:59 09/02/17 08:00 Temperature 98.5 F 98.1 F Pulse Rate Respiratory Rate 24 Blood Pressure Pulse Oximetry 93 L 09/02/17 12:00 Temperature 98.3 F Pulse Rate Respiratory Rate Blood Pressure Pulse Oximetry Intake & Output 09/01/17 09/02/17 09/02/17 18:59 06:59 18:59 Intake Total 725 / 725 820 / 820 100 / 100 Output Total 675 / 675 0 / 0 Balance 50 / 50 820 / 820 100 / 100 Weight 43.5 kg Intake: IV 200 / 200 100 / 100 100 / 100 Azactam Inj 2 GM In NS Inj 100 200 / 200 100 / 100 100 / 100 ML @ 200 mls/hr IV.SIG Q8H [facility] Rx#:[id number] Oral 525 / 525 720 / 720 Output: Urine 675 / 675 Stool 0 / 0 Other: # Voids 2 # Incontinent Voids 2 2 Date of Last Bowel Movement 08/30/17 08/30/17 09/02/17 # Bowel Movements 0 08/25/17 09:25 Bronchial Washings - Bronchial Acid Fast Bacilli Smear - Final No acid fast bacilli seen 08/25/17 09:25 Bronchial Washings - Bronchial Mycobacterial Culture - Preliminary No growth in 1 week 08/25/17 09:25 Bronchial Washings - Bronchial Fungal Smear - Final No fungal elements seen 08/25/17 09:25 Bronchial Washings - Bronchial Fungal Culture - Final Lab - Hematology Results 09/01/17 09/02/17 03:45 04:16 WBC 8.3 7.0 RBC 2.64 L 2.58 L Hgb 7.9 L 7.8 L Hct 24.0 L 23.4 L MCV 90.6 90.7 MCH 29.8 30.2 MCHC 32.9 33.3 RDW 15.1 15.1 Plt Count 249 263 MPV 7.8 8.0 Prelim Diff (Auto) Slide review pending Neut % (Auto) 97.3 H 96.2 H Lymph % (Auto) 1.4 L 1.9 L [place] % (Auto) 1.1 1.7 Eos % (Auto) 0.1 0.1 Baso % (Auto) 0.1 0.1 Neut # (Auto) 8.1 H 6.8 Lymph # (Auto) 0.1 L 0.1 L [place] # (Auto) 0.1 0.1 Eos # (Auto) 0.0 0.0 Baso # (Auto) 0.0 0.0 WBC Differential Manual diff final . Seg Neuts % (Manual) 100 H Abs Neuts (Manual) 8.3 H Differential Comment . Auto diff final Platelet Estimate Normal Platelet Morphology Normal Lab - Chemistry Results 09/01/17 09/02/17 03:45 04:16 Sodium 144 142 Potassium 4.2 3.8 Chloride 108 H 102 Carbon Dioxide 31.9 31.6 Anion Gap 4 L 8 BUN 20 H 18 Creatinine 0.67 0.59 Estimated GFR 84 L Greater than 89 Random Glucose 123 H 124 H Calcium 8.2 L 8.5 Phosphorus 3.0 2.9 Magnesium 1.8 2.0 Total Bilirubin 0.3 0.2 AST 8 L 8 L ALT 17 14 Alkaline Phosphatase 119 H 110 Total Protein 4.9 L 4.8 L Albumin 1.9 L 1.9 L Imaging: ITS Impressions Chest CTA 08/21/17 00:00 CONCLUSION: 1. Left lower lobe consolidation and patchy infiltrate right upper lobe. 2. Small left pleural effusion. 3. Mild emphysema without mass. 4. No evidence for pulmonary embolism. 5. Coronary artery calcifications. 6. Multiple hepatic low densities. 7. Extensive calcification of the upper abdominal aorta. Chest X-Ray 09/01/17 06:00 CONCLUSION: Bilateral mostly basilar airspace disease and small effusions similar to prior exam. Physical Exam: PHYSICAL EXAMINATION: GENERAL: Frail. No acute distress. HEENT: Pupils reactive to light. Extraocular movements grossly intact. No icterus. Oropharynx moist mucosa NECK: Supple. No adenopathy. LUNGS: Decreased breath sounds. No audible rhonchi. HEART: Regular S1, S2. No audible murmurs, rubs or gallops. ABDOMEN: Bowel sounds present. Soft, nontender. No masses palpable. EXTREMITIES: No clubbing or cyanosis. Multiple ecchymotic lesions of the legs and upper extremities. No clubbing, cyanosis or edema. SKIN: No rash. NEUROLOGIC: Alert and oriented. No gross focal findings. PSYCHIATRIC: Mood is calm, Cooperative. Assessment and Plan - Plan IMPRESSION: 1. Pneumonia involving both lower lobes of the lung. Post bronchoscopy. Bronchoscopy culture negative. Her pulmonary status is now more a result of underlying lung disease. 2. Chronic obstructive pulmonary disease. 3. PENICILLIN ALLERGY. RECOMMENDATIONS: 1. Stop aztreonam. 2. Start p.o. doxycycline. 3. Monitor clinical status. 4. Physical therapy exercises.
--- NOTE | 2017-09-02 18:24 | P.PNPL ---
Subjective Interval history: 81 YOWF with Pn,COPD,RF On high flow 02 Breathing better no Fever Feels better, less anxious Physical Exam Vital signs: Vital Signs 09/01/17 19:00 09/01/17 20:00 09/01/17 20:12 Temperature 98.0 F Pulse Rate 99 H 94 H Respiratory Rate 35 H 32 H Blood Pressure 158/71 H 173/80 H Pulse Oximetry 91 L 89 L 90 L 09/01/17 21:00 09/01/17 22:00 09/01/17 23:00 Temperature Pulse Rate 97 H 78 81 Respiratory Rate 33 H 31 H 33 H Blood Pressure 173/80 H 157/74 H 162/72 H Pulse Oximetry 91 L 94 L 90 L 09/02/17 00:00 09/02/17 01:00 09/02/17 02:00 Temperature 98.2 F Pulse Rate 83 78 74 Respiratory Rate 32 H 23 20 Blood Pressure 149/69 H 161/74 H 165/72 H Pulse Oximetry 91 L 95 95 09/02/17 03:00 09/02/17 04:00 09/02/17 05:00 Temperature 98.5 F Pulse Rate 75 76 88 Respiratory Rate 21 20 28 H Blood Pressure 165/80 H 172/73 H 174/80 H Pulse Oximetry 96 95 89 L 09/02/17 06:00 09/02/17 07:00 09/02/17 07:59 Temperature Pulse Rate 83 85 Respiratory Rate 22 27 H Blood Pressure 175/77 H 182/78 H Pulse Oximetry 93 L 91 L 93 L 09/02/17 08:00 09/02/17 08:48 09/02/17 09:00 Temperature 98.1 F Pulse Rate 80 88 76 Respiratory Rate 24 30 H 28 H Blood Pressure 206/81 H 174/78 H Pulse Oximetry 93 L 94 L 91 L 09/02/17 09:08 09/02/17 10:00 09/02/17 11:00 Temperature Pulse Rate 79 80 76 Respiratory Rate 41 H 26 H 25 H Blood Pressure 179/77 H 155/67 H 162/72 H Pulse Oximetry 91 L 88 L 92 L 09/02/17 12:00 09/02/17 13:00 09/02/17 14:00 Temperature 98.3 F Pulse Rate 81 86 90 Respiratory Rate 26 H 30 H 30 H Blood Pressure 142/65 H 150/69 H 161/71 H Pulse Oximetry 88 L 89 L 88 L 09/02/17 15:00 09/02/17 16:00 Temperature 98.3 F Pulse Rate 83 Respiratory Rate 25 H Blood Pressure 164/71 H Pulse Oximetry 95 Intake & Output 09/01/17 09/02/17 09/02/17 18:59 06:59 18:59 Intake Total 725 / 725 820 / 820 100 / 100 Output Total 675 / 675 0 / 0 Balance 50 / 50 820 / 820 100 / 100 Weight 43.5 kg Intake: IV 200 / 200 100 / 100 100 / 100 Azactam Inj 2 GM In NS Inj 100 200 / 200 100 / 100 100 / 100 ML @ 200 mls/hr IV.SIG Q8H [facility] Rx#:[id number] Oral 525 / 525 720 / 720 Output: Urine 675 / 675 Stool 0 / 0 Other: # Voids 2 # Incontinent Voids 2 2 Date of Last Bowel Movement 08/30/17 08/30/17 09/02/17 # Bowel Movements 0 GENERAL: Thin built,WF,mild sob SKIN: Warm and dry. HEAD: Normocephalic. EYES: No scleral icterus. No injection or drainage. NECK: Supple, trachea midline. No JVD or lymphadenopathy. CARDIOVASCULAR: Regular rate and rhythm without murmurs, gallops, or rubs. RESPIRATORY: Breath sounds equal bilaterally. No accessory muscle use. GASTROINTESTINAL: Abdomen soft, non-tender, nondistended. MUSCULOSKELETAL: No cyanosis, or edema. BACK: Nontender without obvious deformity. No CVA tenderness. Assessment and Plan - Plan IMPRESSION: Hypoxic RF COPD Pneumonia HTN Anxiety PLAN: Supplement 02 with High flow. Wean 02 to keep sat >90% Aerosol nebs Abx per ID DVT prophylaxis. Buspar 5 mg tid
[2017-09-02] MEDS: predniSONE 20 MG Tablet PO SCH (20:24)
[2017-09-02] MEDS: Temazepam 15 MG Capsule PO PRN (22:34)
[2017-09-03] MEDS: Heparin - SQ 10,000 UNITS/ML Vial SQ SCH ×2 (06:30→18:33)
[2017-09-03] MEDS: Senna/Docusate Sodium 8.6/50 MG Tablet PO SCH ×2 (09:16→20:46)
[2017-09-03] MEDS: hydrALAZINE 25 MG Tablet PO SCH ×3 (09:16→18:33)
[2017-09-03] MEDS: Metoprolol Tartrate 50 MG Tablet PO SCH ×2 (09:17→20:46)
[2017-09-03] MEDS: Baclofen 10 MG Tablet PO SCH ×2 (09:18→20:46)
[2017-09-03] MEDS: Furosemide 40 MG Tablet PO SCH (09:18)
[2017-09-03] MEDS: Calcium Carbonate 500 MG Tablet PO SCH ×2 (09:19→20:46)
[2017-09-03] MEDS: amLODIPine 10 MG Tablet PO SCH (09:19)
[2017-09-03] MEDS: Lactobacillus Acidophilus/L. Spores Tablet PO SCH ×3 (09:19→18:33)
[2017-09-03] MEDS: Vitamin B Complex/Vit C/Folic Tablet PO SCH (09:19)
[2017-09-03] MEDS: predniSONE 20 MG Tablet PO SCH ×2 (09:19→20:46)
[2017-09-03] MEDS: Tiotropium Bromide 18 MCG/ACT Inhaler INH SCH (09:20)
--- NOTE | 2017-09-03 13:48 | P.PNPL ---
Subjective Interval history: 81 YOWF with Pn,COPD,RF Breathing better no Fever Feels better, less anxious Weaned to 5LNC Physical Exam Vital signs: Vital Signs 09/02/17 14:00 09/02/17 15:00 09/02/17 16:00 Temperature 98.3 F Pulse Rate 90 83 92 H Respiratory Rate 30 H 25 H 35 H Blood Pressure 161/71 H 164/71 H 162/72 H Pulse Oximetry 88 L 95 90 L 09/02/17 17:00 09/02/17 18:00 09/02/17 18:36 Temperature Pulse Rate 85 90 97 H Respiratory Rate 30 H 32 H 35 H Blood Pressure 157/72 H 180/80 H 178/76 H Pulse Oximetry 94 L 90 L 09/02/17 19:00 09/02/17 20:00 09/02/17 20:46 Temperature 98.3 F Pulse Rate 96 H 90 Respiratory Rate 37 H 32 H Blood Pressure 155/72 H 140/62 Pulse Oximetry 92 L 92 L 09/02/17 21:00 09/02/17 22:00 09/02/17 23:00 Temperature Pulse Rate 76 73 75 Respiratory Rate 28 H 26 H 24 Blood Pressure 165/70 H 175/73 H 164/71 H Pulse Oximetry 97 96 09/03/17 00:00 09/03/17 00:01 09/03/17 01:00 Temperature 98.2 F Pulse Rate 80 74 68 Respiratory Rate 28 H 20 20 Blood Pressure 119/57 L 155/68 H Pulse Oximetry 97 97 96 09/03/17 04:00 09/03/17 11:58 Temperature 98.4 F Pulse Rate Respiratory Rate Blood Pressure Pulse Oximetry 92 L Intake & Output 09/02/17 09/03/17 09/03/17 18:59 06:59 18:59 Intake Total 700 / 700 720 / 720 Output Total 500 / 500 500 / 500 Balance 200 / 200 220 / 220 Weight 43 kg Intake: IV 100 / 100 Azactam Inj 2 GM In NS Inj 100 100 / 100 ML @ 200 mls/hr IV.SIG Q8H [facility] Rx#:[id number] Oral 600 / 600 720 / 720 Output: Urine 500 / 500 500 / 500 Stool 0 / 0 Other: # Voids 2 # Incontinent Voids 3 2 Date of Last Bowel Movement 09/02/17 09/02/17 09/02/17 # Bowel Movements 0 GENERAL: Frail elderly WF,mild sob SKIN: Warm and dry. HEAD: Normocephalic. EYES: No scleral icterus. No injection or drainage. NECK: Supple, trachea midline. No JVD or lymphadenopathy. CARDIOVASCULAR: Regular rate and rhythm without murmurs, gallops, or rubs. RESPIRATORY: Breath sounds equal bilaterally. No accessory muscle use. GASTROINTESTINAL: Abdomen soft, non-tender, nondistended. MUSCULOSKELETAL: No cyanosis, or edema. BACK: Nontender without obvious deformity. No CVA tenderness. Narrative: GENERAL: Well-nourished well-developed white female sitting up in bed. SKIN: Warm and dry. HEAD: Atraumatic. Normocephalic. EYES: Pupils equal and round. No scleral icterus. No injection or drainage. ENT: No nasal bleeding or discharge. Mucous membranes pink and moist. NECK: Trachea midline. No JVD. CARDIOVASCULAR: Regular rate and rhythm. RESPIRATORY: No accessory muscle use. Diminished breath sounds with few rhonchi and wheezes bilaterally GASTROINTESTINAL: Abdomen soft, non-tender, nondistended. Hepatic and splenic margins not palpable. MUSCULOSKELETAL: Extremities without clubbing, cyanosis, or edema. No obvious deformities. NEUROLOGICAL: Awake and alert. To person place no obvious cranial nerve deficits. Assessment and Plan - Plan IMPRESSION: Hypoxic RF COPD Pneumonia HTN Anxiety PLAN: Supplement 02 with 5LNC High flow if not able to maintain sats Use Flutter device Wean 02 to keep sat >90% Aerosol nebs Abx per ID DVT prophylaxis. Buspar 5 mg tid
--- NOTE | 2017-09-03 14:16 | P.PNIM ---
Subjective Interval history: She says that shortness of breath is improving. Denies any chest pain. Denies nausea or vomiting. Physical Exam Vital signs: Vital Signs 09/02/17 15:00 09/02/17 16:00 09/02/17 17:00 Temperature 98.3 F Pulse Rate 83 92 H 85 Respiratory Rate 25 H 35 H 30 H Blood Pressure 164/71 H 162/72 H 157/72 H Pulse Oximetry 95 90 L 09/02/17 18:00 09/02/17 18:36 09/02/17 19:00 Temperature Pulse Rate 90 97 H 96 H Respiratory Rate 32 H 35 H 37 H Blood Pressure 180/80 H 178/76 H 155/72 H Pulse Oximetry 94 L 90 L 09/02/17 20:00 09/02/17 20:46 09/02/17 21:00 Temperature 98.3 F Pulse Rate 90 76 Respiratory Rate 32 H 28 H Blood Pressure 140/62 165/70 H Pulse Oximetry 92 L 92 L 09/02/17 22:00 09/02/17 23:00 09/03/17 00:00 Temperature 98.2 F Pulse Rate 73 75 80 Respiratory Rate 26 H 24 28 H Blood Pressure 175/73 H 164/71 H Pulse Oximetry 97 96 97 09/03/17 00:01 09/03/17 01:00 09/03/17 04:00 Temperature 98.4 F Pulse Rate 74 68 Respiratory Rate 20 20 Blood Pressure 119/57 L 155/68 H Pulse Oximetry 97 96 09/03/17 11:58 Temperature Pulse Rate Respiratory Rate Blood Pressure Pulse Oximetry 92 L Intake & Output 09/02/17 09/03/17 09/03/17 18:59 06:59 18:59 Intake Total 700 / 700 720 / 720 Output Total 500 / 500 500 / 500 Balance 200 / 200 220 / 220 Weight 43 kg Intake: IV 100 / 100 Azactam Inj 2 GM In NS Inj 100 100 / 100 ML @ 200 mls/hr IV.SIG Q8H [facility] Rx#:[id number] Oral 600 / 600 720 / 720 Output: Urine 500 / 500 500 / 500 Stool 0 / 0 Other: # Voids 2 # Incontinent Voids 3 2 Date of Last Bowel Movement 09/02/17 09/02/17 09/02/17 # Bowel Movements 0 Narrative: GENERAL: Patient sitting up in bed. Appears comfortable. On 5 L nasal cannula. SKIN: Warm and dry. HEAD: Normocephalic. EYES: No scleral icterus. No injection or drainage. NECK: Supple, trachea midline. No JVD . CARDIOVASCULAR: Regular rate and rhythm without murmurs, gallops, or rubs. RESPIRATORY: Breath sounds equal bilaterally. No accessory muscle use. GASTROINTESTINAL: Abdomen soft, non-tender, nondistended. MUSCULOSKELETAL: No cyanosis, or edema. BACK: Nontender without obvious deformity. No CVA tenderness. Results - Labs CBC & Chem 7: 09/02/17 04:16 09/02/17 04:16 Assessment and Plan - Plan 81-year-old female admitted for healthcare associated pneumonia after outpatient treatment failure. //Healthcare associated pneumonia //Outpatient treatment failure //Suspected resistance Penicillin allergy present Continue azithromycin and continue aztreonam IV Discontinued Levaquin per infectious disease Continue with supplemental oxygen ID and pulmonology following. Status post bronchoscopy 08/25/17 which showed mild tracheobronchitis, excess mucoid secretion and plugging. Follow-up with bronch cultures and preliminary sputum cultures shows heavy growth normal respiratory paul. Blood cultures shows no growth to date = Continue antibiotics as per ID. Patient currently on 5 L, however intermittently requires high flow nasal cannula. Will transfer to floor when cleared by pulmonology. Continue antibiotics as per ID. //COPD exacerbation with a history of 2 L O2 dependence //Hypoxia Continue oxygen as needed currently on 5 L and need to wean as tolerated Switch to Solu-Medrol IV and wean as tolerated, currently on 40 every 12 Mucinex Appreciate pulmonology, Dr. Mendez following. = Appreciate pulmonology assistance. Continue oxygen and antibiotics. //Subacute right leg fracture/debility Patient was in PT as an outpatient at a [facility] Continue PT here. Suspect she will need to return to SNF for further rehabilitation. She is desiring [place] rehab. //Hypertension, chronic essential Continue baseline treatment, currently on Norvasc and Cozaar, will start Vasotec IV as needed for uncontrolled blood pressure Follow blood pressures Adjust treatments as needed //General anxiety disorder Ativan as needed. //DVT prophylaxis Lovenox Discharge [facility] SN[facility] When cleared by pulmonology and ID.
[2017-09-03] MEDS: Temazepam 15 MG Capsule PO PRN (23:08)
[2017-09-04 04:35] LABS: Baso % (Auto) 0.1 % (0.0-2.0); Eos % (Auto) 0.1 % (0.0-4.0); Hematocrit 24.8 % (35.0-46.0); Hemoglobin 8.4 gm/dL (11.6-15.3); Lymph # (Auto) 0.1 th/mm3 (1.0-4.8); Lymph % (Auto) 2.2 % (9.0-44.0); Mean Corpuscular Hemoglobin 30.9 pg (27.0-34.0); Mean Corpuscular Volume 90.7 fL (80.0-100.0); Mean Platelet Volume 7.8 fL (7.0-11.0); Mono # (Auto) 0.2 th/mm3 (0.0-0.9); Neut # (Auto) 4.9 th/mm3 (1.8-7.7); Neut % (Auto) 94.6 % (16.0-70.0); Platelet Count 266 th/mm3 (150-450); Red Blood Count 2.73 mil/mm3 (4.00-5.30); Red Cell Distribution Width 15.5 % (11.6-17.2); White Blood Count 5.2 th/mm3 (4.0-11.0)
[2017-09-04 04:50] LABS: Anion Gap 5 meq/L (5-15); Blood Urea Nitrogen 17 mg/dL (7-18); Calcium 8.2 mg/dL (8.5-10.1); Carbon Dioxide 35.7 meq/L (21.0-32.0); Chloride 100 meq/L (98-107); Glomerular Filtration Rate Greater Than 89 mL/min (>89); Glucose,Random 116 mg/dL (74-106); Potassium 3.6 meq/L (3.5-5.1); Sodium 141 meq/L (136-145)
[2017-09-04] MEDS: Baclofen 10 MG Tablet PO SCH ×2 (09:25→20:13)
[2017-09-04] MEDS: Senna/Docusate Sodium 8.6/50 MG Tablet PO SCH ×2 (09:25→20:13)
[2017-09-04] MEDS: Vitamin B Complex/Vit C/Folic Tablet PO SCH (09:25)
[2017-09-04] MEDS: amLODIPine 10 MG Tablet PO SCH (09:25)
[2017-09-04] MEDS: Calcium Carbonate 500 MG Tablet PO SCH ×2 (09:25→20:13)
[2017-09-04] MEDS: hydrALAZINE 25 MG Tablet PO SCH ×3 (09:25→18:33)
[2017-09-04] MEDS: Metoprolol Tartrate 50 MG Tablet PO SCH ×2 (09:25→20:13)
[2017-09-04] MEDS: Furosemide 40 MG Tablet PO SCH (09:26)
[2017-09-04] MEDS: predniSONE 20 MG Tablet PO SCH ×2 (09:26→20:13)
[2017-09-04] MEDS: Lactobacillus Acidophilus/L. Spores Tablet PO SCH ×3 (09:26→18:33)
[2017-09-04] MEDS: Tiotropium Bromide 18 MCG/ACT Inhaler INH SCH (09:27)
--- NOTE | 2017-09-04 11:19 | P.PNPL ---
Subjective Interval history: 81 YOWF with Pn,COPD,RF Breathing better no Fever Feels better, less anxious Weaned to 5LNC Used high flow last night Physical Exam Vital signs: Vital Signs 09/03/17 11:58 09/03/17 12:00 09/03/17 13:00 Temperature 98.5 F Pulse Rate 81 86 Respiratory Rate 25 H 28 H Blood Pressure 179/81 H 173/100 H Pulse Oximetry 92 L 92 L 84 L 09/03/17 14:00 09/03/17 15:00 09/03/17 16:00 Temperature 98.7 F Pulse Rate 90 82 91 H Respiratory Rate 33 H 24 31 H Blood Pressure 147/66 H 156/70 H 166/73 H Pulse Oximetry 88 L 95 91 L 09/03/17 17:00 09/03/17 18:00 09/03/17 19:00 Temperature Pulse Rate 89 95 H 104 H Respiratory Rate 35 H 28 H 35 H Blood Pressure 163/74 H 157/72 H 125/59 L Pulse Oximetry 94 L 88 L 88 L 09/03/17 20:00 09/03/17 20:18 09/03/17 21:00 Temperature Pulse Rate 99 H 95 H 101 H Respiratory Rate 34 H 28 H 32 H Blood Pressure 125/57 L 153/68 H Pulse Oximetry 90 L 92 L 89 L 09/03/17 22:00 09/03/17 23:00 09/04/17 00:00 Temperature 98.8 F Pulse Rate 77 77 82 Respiratory Rate 26 H 25 H 24 Blood Pressure 123/59 L 154/67 H 134/60 Pulse Oximetry 94 L 96 98 09/04/17 01:00 09/04/17 02:00 09/04/17 02:18 Temperature Pulse Rate 80 80 73 Respiratory Rate 22 20 19 Blood Pressure 132/61 162/73 H 134/60 Pulse Oximetry 100 99 99 09/04/17 03:00 09/04/17 03:25 09/04/17 03:32 Temperature Pulse Rate 79 85 83 Respiratory Rate 22 27 H 22 Blood Pressure 174/77 H 158/69 H Pulse Oximetry 99 97 09/04/17 04:00 09/04/17 08:57 Temperature 98.4 F Pulse Rate 86 Respiratory Rate 21 Blood Pressure 147/65 H Pulse Oximetry 98 93 L Intake & Output 09/03/17 09/04/17 09/04/17 18:59 06:59 18:59 Intake Total 1060 / 1060 480 / 480 Output Total 800 / 800 50 / 50 Balance 260 / 260 430 / 430 Weight 43.5 kg Intake: Oral 1060 / 1060 480 / 480 Output: Urine 800 / 800 50 / 50 Other: # Voids 3 Date of Last Bowel Movement 09/02/17 09/03/17 # Bowel Movements 0 2 # Incontinent Bowel Movements 2 GENERAL: Frail elderly WF, mild sob SKIN: Warm and dry. HEAD: Normocephalic. EYES: No scleral icterus. No injection or drainage. NECK: Supple, trachea midline. No JVD or lymphadenopathy. CARDIOVASCULAR: Regular rate and rhythm without murmurs, gallops, or rubs. RESPIRATORY: Breath sounds equal bilaterally. No accessory muscle use. GASTROINTESTINAL: Abdomen soft, non-tender, nondistended. MUSCULOSKELETAL: No cyanosis, or edema. BACK: Nontender without obvious deformity. No CVA tenderness. Assessment and Plan - Plan IMPRESSION: Hypoxic RF COPD Pneumonia HTN Anxiety PLAN: Supplement 02 with 5LNC Use Flutter device Wean 02 to keep sat >90% Aerosol nebs Abx per ID DVT prophylaxis. Buspar 5 mg tid OOB in chair
--- NOTE | 2017-09-04 16:47 | P.PNIM ---
Subjective Interval history: Patient says she is feeling right. Denies any chest pain. Reports shortness of breath is about the same as yesterday. Physical Exam Vital signs: Vital Signs 09/03/17 17:00 09/03/17 18:00 09/03/17 19:00 Temperature Pulse Rate 89 95 H 104 H Respiratory Rate 35 H 28 H 35 H Blood Pressure 163/74 H 157/72 H 125/59 L Pulse Oximetry 94 L 88 L 88 L 09/03/17 20:00 09/03/17 20:18 09/03/17 21:00 Temperature Pulse Rate 99 H 95 H 101 H Respiratory Rate 34 H 28 H 32 H Blood Pressure 125/57 L 153/68 H Pulse Oximetry 90 L 92 L 89 L 09/03/17 22:00 09/03/17 23:00 09/04/17 00:00 Temperature 98.8 F Pulse Rate 77 77 82 Respiratory Rate 26 H 25 H 24 Blood Pressure 123/59 L 154/67 H 134/60 Pulse Oximetry 94 L 96 98 09/04/17 01:00 09/04/17 02:00 09/04/17 02:18 Temperature Pulse Rate 80 80 73 Respiratory Rate 22 20 19 Blood Pressure 132/61 162/73 H 134/60 Pulse Oximetry 100 99 99 09/04/17 03:00 09/04/17 03:25 09/04/17 03:32 Temperature Pulse Rate 79 85 83 Respiratory Rate 22 27 H 22 Blood Pressure 174/77 H 158/69 H Pulse Oximetry 99 97 09/04/17 04:00 09/04/17 08:00 09/04/17 08:57 Temperature 98.4 F 97.9 F Pulse Rate 86 91 H Respiratory Rate 21 23 Blood Pressure 147/65 H 151/70 H Pulse Oximetry 98 94 L 93 L 09/04/17 12:00 Temperature 98.3 F Pulse Rate 90 Respiratory Rate 23 Blood Pressure 131/61 Pulse Oximetry 93 L Intake & Output 09/03/17 09/04/17 09/04/17 18:59 06:59 18:59 Intake Total 1060 / 1060 480 / 480 Output Total 800 / 800 50 / 50 Balance 260 / 260 430 / 430 Weight 43.5 kg Intake: Oral 1060 / 1060 480 / 480 Output: Urine 800 / 800 50 / 50 Other: # Voids 3 Date of Last Bowel Movement 09/02/17 09/03/17 09/03/17 # Bowel Movements 0 2 # Incontinent Bowel Movements 2 Narrative: GENERAL: Patient sitting up in bed. Appears comfortable. On 6 L nasal cannula. SKIN: Warm and dry. HEAD: Normocephalic. EYES: No scleral icterus. No injection or drainage. NECK: Supple, trachea midline. No JVD . CARDIOVASCULAR: Regular rate and rhythm without murmurs, gallops, or rubs. RESPIRATORY: Breath sounds equal bilaterally. No accessory muscle use. GASTROINTESTINAL: Abdomen soft, non-tender, nondistended. MUSCULOSKELETAL: No cyanosis, or edema. BACK: Nontender without obvious deformity. No CVA tenderness. Results - Labs CBC & Chem 7: 09/04/17 02:53 09/04/17 02:53 Laboratory Results - last 24 hr 09/04/17 09/04/17 02:53 02:53 WBC 5.2 RBC 2.73 L Hgb 8.4 L Hct 24.8 L MCV 90.7 MCH 30.9 MCHC 34.0 RDW 15.5 Plt Count 266 MPV 7.8 Neut % (Auto) 94.6 H Lymph % (Auto) 2.2 L Barry % (Auto) 3.0 Eos % (Auto) 0.1 Baso % (Auto) 0.1 Neut # (Auto) 4.9 Lymph # (Auto) 0.1 L Barry # (Auto) 0.2 Eos # (Auto) 0.0 Baso # (Auto) 0.0 WBC Differential . Differential Comment Auto diff final Sodium 141 Potassium 3.6 Chloride 100 Carbon Dioxide 35.7 H Anion Gap 5 BUN 17 Creatinine 0.63 Estimated GFR Greater than 89 Random Glucose 116 H Calcium 8.2 L Assessment and Plan - Plan 81-year-old female admitted for healthcare associated pneumonia after outpatient treatment failure. //Healthcare associated pneumonia //Outpatient treatment failure //Suspected resistance Penicillin allergy present Continue azithromycin and continue aztreonam IV Discontinued Levaquin per infectious disease Continue with supplemental oxygen ID and pulmonology following. Status post bronchoscopy 08/25/17 which showed mild tracheobronchitis, excess mucoid secretion and plugging. Follow-up with bronch cultures and preliminary sputum cultures shows heavy growth normal respiratory paul. Blood cultures shows no growth to date = Continue antibiotics as per ID. Patient currently on 5 L, however intermittently requires high flow nasal cannula. Will transfer to floor when cleared by pulmonology. Continue antibiotics as per ID. = 09/04. Respiratory status stable. Continues on antibiotics. Appreciate pulmonology's assistance. //COPD exacerbation with a history of 2 L O2 dependence //Hypoxia Continue oxygen as needed currently on 5 L and need to wean as tolerated Switch to Solu-Medrol IV and wean as tolerated, currently on 40 every 12 Mucinex Appreciate pulmonology, Dr. Mendez following. = Appreciate pulmonology assistance. Continue oxygen and antibiotics. //Subacute right leg fracture/debility Patient [facility] Continue PT here. Suspect she will need to return to SNF for further rehabilitation. She is desiring [facility]. //Hypertension, chronic essential Continue baseline treatment, currently on Norvasc and Cozaar, will start Vasotec IV as needed for uncontrolled blood pressure Follow blood pressures Adjust treatments as needed //General anxiety disorder Ativan as needed. //DVT prophylaxis Lovenox Discharge [facility] SN[facility] When cleared by pulmonology and ID.
[2017-09-04] MEDS: Heparin - SQ 10,000 UNITS/ML Vial SQ SCH (18:33)
[2017-09-04] MEDS: Temazepam 15 MG Capsule PO PRN (22:54)
[2017-09-05] MEDS: Metoprolol Tartrate 50 MG Tablet PO SCH ×2 (08:45→20:01)
[2017-09-05] MEDS: Heparin - SQ 10,000 UNITS/ML Vial SQ SCH ×2 (08:45→18:34)
[2017-09-05] MEDS: Vitamin B Complex/Vit C/Folic Tablet PO SCH (08:46)
[2017-09-05] MEDS: amLODIPine 10 MG Tablet PO SCH (08:46)
[2017-09-05] MEDS: Senna/Docusate Sodium 8.6/50 MG Tablet PO SCH ×2 (08:46→20:01)
[2017-09-05] MEDS: Calcium Carbonate 500 MG Tablet PO SCH ×2 (08:47→20:01)
[2017-09-05] MEDS: hydrALAZINE 25 MG Tablet PO SCH ×3 (08:47→18:35)
[2017-09-05] MEDS: Baclofen 10 MG Tablet PO SCH ×2 (08:47→20:01)
[2017-09-05] MEDS: Furosemide 40 MG Tablet PO SCH (08:47)
[2017-09-05] MEDS: predniSONE 20 MG Tablet PO SCH ×2 (08:47→20:01)
[2017-09-05] MEDS: Lactobacillus Acidophilus/L. Spores Tablet PO SCH ×3 (08:47→18:35)
[2017-09-05] MEDS: Tiotropium Bromide 18 MCG/ACT Inhaler INH SCH (08:48)
[2017-09-05 11:58] LABS: Alanine Aminotransferase 16 U/L (10-53); Albumin 2.2 g/dL (3.4-5.0); Anion Gap 3 meq/L (5-15); Aspartate Aminotransferase 9 U/L (15-37); Blood Urea Nitrogen 13 mg/dL (7-18); Calcium 8.7 mg/dL (8.5-10.1); Carbon Dioxide 39.5 meq/L (21.0-32.0); Chloride 100 meq/L (98-107); Glomerular Filtration Rate 80 mL/min (>89); Glucose,Random 72 mg/dL (74-106); Potassium 3.3 meq/L (3.5-5.1); Sodium 142 meq/L (136-145)
[2017-09-05 12:00] LABS: Alkaline Phosphatase 99 U/L (45-117); Total Protein 5.1 g/dL (6.4-8.2)
--- NOTE | 2017-09-05 13:36 | P.PNIM ---
Subjective Interval history: Patient says she is feeling a little better today. Denies any chest pain. Reports shortness of breath is improved. She is currently on 3 L nasal cannula which is improved from 6 yesterday. Physical Exam Vital signs: Vital Signs 09/04/17 14:00 09/04/17 15:00 09/04/17 16:00 Temperature 98.3 F Pulse Rate 94 H 104 H 90 Respiratory Rate 23 27 H 23 Blood Pressure 124/57 L 127/61 125/60 Pulse Oximetry 96 94 L 97 09/04/17 17:00 09/04/17 18:00 09/04/17 19:00 Temperature Pulse Rate 96 H 88 93 H Respiratory Rate 27 H 22 24 Blood Pressure 140/64 143/63 H 148/64 H Pulse Oximetry 94 L 99 78 L 09/04/17 20:00 09/04/17 21:00 09/04/17 21:15 Temperature 98 F Pulse Rate 95 H 79 79 Respiratory Rate 24 23 20 Blood Pressure 129/60 134/64 Pulse Oximetry 95 96 95 09/04/17 22:00 09/04/17 23:00 09/04/17 23:02 Temperature Pulse Rate 87 90 94 H Respiratory Rate 23 40 H 36 H Blood Pressure 139/69 169/76 H Pulse Oximetry 90 L 90 L 90 L 09/05/17 00:00 09/05/17 01:00 09/05/17 02:00 Temperature 98.4 F Pulse Rate 89 85 80 Respiratory Rate 20 19 18 Blood Pressure 150/69 H 150/67 H 144/67 H Pulse Oximetry 99 98 99 09/05/17 03:00 09/05/17 04:00 09/05/17 04:05 Temperature 98.1 F Pulse Rate 90 78 85 Respiratory Rate 19 18 22 Blood Pressure 148/73 H 151/67 H Pulse Oximetry 93 L 97 09/05/17 05:00 09/05/17 06:00 09/05/17 06:01 Temperature Pulse Rate 96 H 93 H 84 Respiratory Rate 26 H 22 19 Blood Pressure 157/70 H 152/68 H Pulse Oximetry 88 L 99 99 09/05/17 07:00 09/05/17 08:00 09/05/17 09:00 Temperature Pulse Rate 85 86 103 H Respiratory Rate 21 22 31 H Blood Pressure 172/73 H 178/80 H 146/104 H Pulse Oximetry 97 94 L 90 L 07/23/18 09:07 09/05/17 10:00 09/05/17 11:00 Temperature Pulse Rate 94 H 84 92 H Respiratory Rate 26 H 25 H 30 H Blood Pressure 115/56 L 130/62 Pulse Oximetry 97 95 91 L Intake & Output 09/04/17 09/05/17 09/05/17 18:59 06:59 18:59 Intake Total 840 / 840 Output Total 300 / 300 Balance 840 / 840 -300 / -300 Weight 43.2 kg Intake: Oral 840 / 840 Output: Urine Amount (Catheter) 300 / 300 Female External 300 / 300 Other: # Voids 2 2 Date of Last Bowel Movement 09/03/17 09/03/17 09/03/17 # Bowel Movements 0 Narrative: GENERAL: Patient sitting up in bed. Appears comfortable. On 3 L nasal cannula. SKIN: Warm and dry. HEAD: Normocephalic. EYES: No scleral icterus. No injection or drainage. NECK: Supple, trachea midline. No JVD . CARDIOVASCULAR: Regular rate and rhythm without murmurs, gallops, or rubs. RESPIRATORY: Breath sounds equal bilaterally. No accessory muscle use. GASTROINTESTINAL: Abdomen soft, non-tender, nondistended. MUSCULOSKELETAL: No cyanosis, or edema. BACK: Nontender without obvious deformity. No CVA tenderness. - Urinary Catheter Management Female External Cath placed during this visit: no Results - Labs CBC & Chem 7: 09/04/17 02:53 09/05/17 10:58 Laboratory Results - last 24 hr 09/05/17 10:58 Sodium 142 Potassium 3.3 L Chloride 100 Carbon Dioxide 39.5 H Anion Gap 3 L BUN 13 Creatinine 0.70 Estimated GFR 80 L Random Glucose 72 L Calcium 8.7 Total Bilirubin 0.2 AST 9 L ALT 16 Alkaline Phosphatase 99 Total Protein 5.1 L Albumin 2.2 L Assessment and Plan - Plan 81-year-old female admitted for healthcare associated pneumonia after outpatient treatment failure. //Healthcare associated pneumonia //Outpatient treatment failure //Suspected resistance Penicillin allergy present Continue azithromycin and continue aztreonam IV Discontinued Levaquin per infectious disease Continue with supplemental oxygen ID and pulmonology following. Status post bronchoscopy 08/25/17 which showed mild tracheobronchitis, excess mucoid secretion and plugging. Follow-up with bronch cultures and preliminary sputum cultures shows heavy growth normal respiratory paul. Blood cultures shows no growth to date = Continue antibiotics as per ID. Patient currently on 5 L, however intermittently requires high flow nasal cannula. Will transfer to floor when cleared by pulmonology. Continue antibiotics as per ID. = 09/04. Respiratory status stable. Continues on antibiotics. Appreciate pulmonology's assistance. = 09/05. Improvement. Continue on doxycycline as per ID. Slow improvement. //COPD exacerbation with a history of 2 L O2 dependence //Hypoxia Continue oxygen as needed currently on 5 L and need to wean as tolerated Switch to Solu-Medrol IV and wean as tolerated, currently on 40 every 12 Mucinex Appreciate pulmonology, Dr. Mendez following. = Appreciate pulmonology assistance. Continue oxygen and antibiotics. =09/05 Down to 3 L nasal cannula today. Discussed with nursing. Hopefully if stable by tomorrow can transfer to floor. //Hypokalemia. = 09/05 3.3. Replace. Continue to monitor. //Subacute right leg fracture/debility Patient was in PT as an outpatient at a group home facility Continue PT here. Suspect she will need to return to SNF for further rehabilitation. She is desiring [place] re[facility]. //Hypertension, chronic essential Continue baseline treatment, currently on Norvasc and Cozaar, will start Vasotec IV as needed for uncontrolled blood pressure Follow blood pressures Adjust treatments as needed //General anxiety disorder Ativan as needed. //DVT prophylaxis Lovenox Discharge Planning: Hopefully stable and can transfer to floor tomorrow. 2 SNF When cleared by pulmonology and ID.
--- NOTE | 2017-09-05 14:48 | P.PNID ---
Subjective Remarks: Patient reports that she feels better. Oxygen has been decreased to 3 L O2. States that her breathing is comfortable. Occasional cough without sputum. Denies chest pain No fever or chills. Admitted with SOB from rehab facility. Consult requested for pneumonia. Bronchoscopy/ culture has been negative. Antibiotics: Doxycycline Lines: peripheral IV intact Past Medical History: Chronic obstructive pulmonary disease, hypertension, anxiety disorder, right hip fracture, left leg fracture, status post ORIF on 07/05/2017, right wrist fracture. Allergies/Adverse Reactions: Allergies Penicillins Allergy (Intermediate, Verified 08/21/17 03:53) Blister Objective Vital Signs 09/04/17 15:00 09/04/17 16:00 09/04/17 17:00 Temperature 98.3 F Pulse Rate 104 H 90 96 H Respiratory Rate 27 H 23 27 H Blood Pressure 127/61 125/60 140/64 Pulse Oximetry 94 L 97 94 L 09/04/17 18:00 09/04/17 19:00 09/04/17 20:00 Temperature 98 F Pulse Rate 88 93 H 95 H Respiratory Rate 22 24 24 Blood Pressure 143/63 H 148/64 H 129/60 Pulse Oximetry 99 78 L 95 09/04/17 21:00 09/04/17 21:15 09/04/17 22:00 Temperature Pulse Rate 79 79 87 Respiratory Rate 23 20 23 Blood Pressure 134/64 139/69 Pulse Oximetry 96 95 90 L 09/04/17 23:00 09/04/17 23:02 09/05/17 00:00 Temperature 98.4 F Pulse Rate 90 94 H 89 Respiratory Rate 40 H 36 H 20 Blood Pressure 169/76 H 150/69 H Pulse Oximetry 90 L 90 L 99 09/05/17 01:00 09/05/17 02:00 09/05/17 03:00 Temperature Pulse Rate 85 80 90 Respiratory Rate 19 18 19 Blood Pressure 150/67 H 144/67 H 148/73 H Pulse Oximetry 98 99 93 L 09/05/17 04:00 09/05/17 04:05 09/05/17 05:00 Temperature 98.1 F Pulse Rate 78 85 96 H Respiratory Rate 18 22 26 H Blood Pressure 151/67 H 157/70 H Pulse Oximetry 97 88 L 09/05/17 06:00 09/05/17 06:01 07/23/18 07:00 Temperature Pulse Rate 93 H 84 85 Respiratory Rate 22 19 21 Blood Pressure 152/68 H 172/73 H Pulse Oximetry 99 99 97 09/05/17 08:00 09/05/17 09:00 09/05/17 09:07 Temperature Pulse Rate 86 103 H 94 H Respiratory Rate 22 31 H 26 H Blood Pressure 178/80 H 146/104 H Pulse Oximetry 94 L 90 L 97 09/05/17 10:00 09/05/17 11:00 Temperature Pulse Rate 84 92 H Respiratory Rate 25 H 30 H Blood Pressure 115/56 L 130/62 Pulse Oximetry 95 91 L Intake & Output 09/04/17 09/05/17 09/05/17 18:59 06:59 18:59 Intake Total 840 / 840 Output Total 300 / 300 Balance 840 / 840 -300 / -300 Weight 43.2 kg Intake: Oral 840 / 840 Output: Urine Amount (Catheter) 300 / 300 Female External 300 / 300 Other: # Voids 2 2 Date of Last Bowel Movement 09/03/17 09/03/17 09/03/17 # Bowel Movements 0 Lab - Hematology Results 09/04/17 02:53 WBC 5.2 RBC 2.73 L Hgb 8.4 L Hct 24.8 L MCV 90.7 MCH 30.9 MCHC 34.0 RDW 15.5 Plt Count 266 MPV 7.8 Neut % (Auto) 94.6 H Lymph % (Auto) 2.2 L [place] % (Auto) 3.0 Eos % (Auto) 0.1 Baso % (Auto) 0.1 Neut # (Auto) 4.9 Lymph # (Auto) 0.1 L [place] # (Auto) 0.2 Eos # (Auto) 0.0 Baso # (Auto) 0.0 WBC Differential . Differential Comment Auto diff final Lab - Chemistry Results 09/04/17 09/05/17 02:53 10:58 Sodium 141 142 Potassium 3.6 3.3 L Chloride 100 100 Carbon Dioxide 35.7 H 39.5 H Anion Gap 5 3 L BUN 17 13 Creatinine 0.63 0.70 Estimated GFR Greater than 89 80 L Random Glucose 116 H 72 L Calcium 8.2 L 8.7 Total Bilirubin 0.2 AST 9 L ALT 16 Alkaline Phosphatase 99 Total Protein 5.1 L Albumin 2.2 L Imaging: ITS Impressions Chest CTA 08/21/17 00:00 CONCLUSION: 1. Left lower lobe consolidation and patchy infiltrate right upper lobe. 2. Small left pleural effusion. 3. Mild emphysema without mass. 4. No evidence for pulmonary embolism. 5. Coronary artery calcifications. 6. Multiple hepatic low densities. 7. Extensive calcification of the upper abdominal aorta. Chest X-Ray 09/01/17 06:00 CONCLUSION: Bilateral mostly basilar airspace disease and small effusions similar to prior exam. Physical Exam: PHYSICAL EXAMINATION: GENERAL: Frail. No acute distress. HEENT: Pupils reactive to light. Extraocular movements grossly intact. No icterus. Oropharynx mucosa is moist. NECK: Supple. No adenopathy. LUNGS: Decreased breath sounds bilateral. Slight basilar rhonchi. HEART: Regular S1, S2. No audible murmurs, rubs or gallops. ABDOMEN: Bowel sounds present. Soft, nontender. No masses palpable. EXTREMITIES: No clubbing or cyanosis. Multiple ecchymotic lesions of the legs and upper extremities. SKIN: No rash. NEUROLOGIC: Alert and oriented. No gross focal findings. PSYCHIATRIC: Mood is calm, Cooperative. Assessment and Plan - Plan IMPRESSION: 1. Pneumonia involving both lower lobes of the lung. Post bronchoscopy. Bronchoscopy culture negative. Her pulmonary status is now more a result of underlying lung disease. Appears to be slowly improving. 2. Chronic obstructive pulmonary disease. 3. PENICILLIN ALLERGY. RECOMMENDATIONS: 1. Continue p.o. doxycycline. 2. Monitor clinical status. 3. Repeat chest x-ray tomorrow. 4. Physical therapy exercises.
--- NOTE | 2017-09-05 18:24 | P.PNPL ---
Subjective Interval history: 81 YOWF with Pn,COPD,RF Breathing better no Fever Feels better, less anxious Weaned to 3LNC Physical Exam Vital signs: Vital Signs 09/04/17 19:00 09/04/17 20:00 09/04/17 21:00 Temperature 98 F Pulse Rate 93 H 95 H 79 Respiratory Rate 24 24 23 Blood Pressure 148/64 H 129/60 134/64 Pulse Oximetry 78 L 95 96 09/04/17 21:15 09/04/17 22:00 09/04/17 23:00 Temperature Pulse Rate 79 87 90 Respiratory Rate 20 23 40 H Blood Pressure 139/69 Pulse Oximetry 95 90 L 90 L 09/04/17 23:02 09/05/17 00:00 09/05/17 01:00 Temperature 98.4 F Pulse Rate 94 H 89 85 Respiratory Rate 36 H 20 19 Blood Pressure 169/76 H 150/69 H 150/67 H Pulse Oximetry 90 L 99 98 09/05/17 02:00 09/05/17 03:00 09/05/17 04:00 Temperature 98.1 F Pulse Rate 80 90 78 Respiratory Rate 18 19 18 Blood Pressure 144/67 H 148/73 H 151/67 H Pulse Oximetry 99 93 L 97 09/05/17 04:05 09/05/17 05:00 09/05/17 06:00 Temperature Pulse Rate 85 96 H 93 H Respiratory Rate 22 26 H 22 Blood Pressure 157/70 H Pulse Oximetry 88 L 99 09/05/17 06:01 09/05/17 07:00 09/05/17 08:00 Temperature Pulse Rate 84 85 86 Respiratory Rate 19 21 22 Blood Pressure 152/68 H 172/73 H 178/80 H Pulse Oximetry 99 97 94 L 09/05/17 09:00 09/05/17 09:07 09/05/17 10:00 Temperature Pulse Rate 103 H 94 H 84 Respiratory Rate 31 H 26 H 25 H Blood Pressure 146/104 H 115/56 L Pulse Oximetry 90 L 97 95 09/05/17 11:00 09/05/17 14:50 Temperature Pulse Rate 92 H 96 H Respiratory Rate 30 H 24 Blood Pressure 130/62 Pulse Oximetry 91 L Intake & Output 09/04/17 09/05/17 09/05/17 18:59 06:59 18:59 Intake Total 840 / 840 Output Total 300 / 300 Balance 840 / 840 -300 / -300 Weight 43.2 kg Intake: Oral 840 / 840 Output: Urine Amount (Catheter) 300 / 300 Female External 300 / 300 Other: # Voids 2 2 Date of Last Bowel Movement 09/03/17 09/03/17 09/03/17 # Bowel Movements 0 GENERAL: Frail elderly WF,NAD SKIN: Warm and dry. HEAD: Normocephalic. EYES: No scleral icterus. No injection or drainage. NECK: Supple, trachea midline. No JVD or lymphadenopathy. CARDIOVASCULAR: Regular rate and rhythm without murmurs, gallops, or rubs. RESPIRATORY: Breath sounds equal bilaterally. No accessory muscle use. GASTROINTESTINAL: Abdomen soft, non-tender, nondistended. MUSCULOSKELETAL: No cyanosis, or edema. BACK: Nontender without obvious deformity. No CVA tenderness. - Urinary Catheter Management Female External Cath placed during this visit: no Assessment and Plan - Plan IMPRESSION: Hypoxic RF COPD Pneumonia HTN Anxiety PLAN: Supplement 02 with 3LNC Use Flutter device Wean 02 to keep sat >90% Aerosol nebs Abx per ID DVT prophylaxis. Buspar 5 mg tid OOB in chair Stable to tr to floor
--- NOTE | 2017-09-05 21:32 | P.PN ---
Subjective Interval history: F/u PNA Physical Exam Vital signs: Vital Signs 09/04/17 22:00 09/04/17 23:00 09/04/17 23:02 Temperature Pulse Rate 87 90 94 H Respiratory Rate 23 40 H 36 H Blood Pressure 139/69 169/76 H Pulse Oximetry 90 L 90 L 90 L 09/05/17 00:00 09/05/17 01:00 09/05/17 02:00 Temperature 98.4 F Pulse Rate 89 85 80 Respiratory Rate 20 19 18 Blood Pressure 150/69 H 150/67 H 144/67 H Pulse Oximetry 99 98 99 09/05/17 03:00 09/05/17 04:00 09/05/17 04:05 Temperature 98.1 F Pulse Rate 90 78 85 Respiratory Rate 19 18 22 Blood Pressure 148/73 H 151/67 H Pulse Oximetry 93 L 97 09/05/17 05:00 09/05/17 06:00 09/05/17 06:01 Temperature Pulse Rate 96 H 93 H 84 Respiratory Rate 26 H 22 19 Blood Pressure 157/70 H 152/68 H Pulse Oximetry 88 L 99 99 09/05/17 07:00 09/05/17 08:00 09/05/17 09:00 Temperature Pulse Rate 85 86 103 H Respiratory Rate 21 22 31 H Blood Pressure 172/73 H 178/80 H 146/104 H Pulse Oximetry 97 94 L 90 L 09/05/17 09:07 09/05/17 10:00 09/05/17 11:00 Temperature Pulse Rate 94 H 84 92 H Respiratory Rate 26 H 25 H 30 H Blood Pressure 115/56 L 130/62 Pulse Oximetry 97 95 91 L 09/05/17 12:00 09/05/17 13:00 09/05/17 14:00 Temperature 98.8 F Pulse Rate 88 98 H 88 Respiratory Rate 24 27 H 22 Blood Pressure 119/57 L 137/63 113/54 L Pulse Oximetry 93 L 90 L 94 L 09/05/17 14:50 09/05/17 15:00 09/05/17 16:00 Temperature 99.2 F Pulse Rate 96 H 96 H 96 H Respiratory Rate 24 25 H 25 H Blood Pressure 117/82 125/60 Pulse Oximetry 95 88 L 09/05/17 17:00 09/05/17 18:00 09/05/17 19:00 Temperature Pulse Rate 93 H 94 H 97 H Respiratory Rate 23 24 27 H Blood Pressure 129/60 151/67 H 135/63 Pulse Oximetry 94 L 93 L 90 L 09/05/17 20:00 Temperature 98.0 F Pulse Rate 101 H Respiratory Rate 27 H Blood Pressure 129/61 Pulse Oximetry 92 L Intake & Output 09/05/17 09/05/17 09/06/17 06:59 18:59 06:59 Intake Total 800 / 800 Output Total 300 / 300 375 / 375 Balance -300 / -300 425 / 425 Weight 43.2 kg Intake: Oral 800 / 800 Output: Urine 200 / 200 Stool 0 / 0 Urine Amount (Catheter) 300 / 300 175 / 175 Female External 300 / 300 175 / 175 Other: # Voids 2 Date of Last Bowel Movement 09/03/17 09/03/17 09/03/17 # Bowel Movements 0 # Incontinent Bowel Movements 2 Narrative: GENERAL: Patient sitting up in bed. Appears comfortable. On 3 L nasal cannula. SKIN: Warm and dry. CARDIOVASCULAR: Regular rate and rhythm without murmurs, gallops, or rubs. RESPIRATORY: Breath sounds equal bilaterally. No accessory muscle use. GASTROINTESTINAL: Abdomen soft, non-tender, nondistended. MUSCULOSKELETAL: No cyanosis, or edema. - Urinary Catheter Management Female External Cath placed during this visit: no Results - Labs CBC & Chem 7: 09/04/17 02:53 09/05/17 10:58 Laboratory Results - last 24 hr 09/05/17 10:58 Sodium 142 Potassium 3.3 L Chloride 100 Carbon Dioxide 39.5 H Anion Gap 3 L BUN 13 Creatinine 0.70 Estimated GFR 80 L Random Glucose 72 L Calcium 8.7 Total Bilirubin 0.2 AST 9 L ALT 16 Alkaline Phosphatase 99 Total Protein 5.1 L Albumin 2.2 L - Imaging ITS Impressions Chest CTA 08/21/17 00:00 CONCLUSION: 1. Left lower lobe consolidation and patchy infiltrate right upper lobe. 2. Small left pleural effusion. 3. Mild emphysema without mass. 4. No evidence for pulmonary embolism. 5. Coronary artery calcifications. 6. Multiple hepatic low densities. 7. Extensive calcification of the upper abdominal aorta. Chest X-Ray 09/01/17 06:00 CONCLUSION: Bilateral mostly basilar airspace disease and small effusions similar to prior exam. - Procedures Bronchoscopy Assessment and Plan - Assessment (1) COPD (chronic obstructive pulmonary disease) Code(s): J44.9 - Chronic obstructive pulmonary disease, unspecified Status: Acute (2) Pneumonia Code(s): J18.9 - Pneumonia, unspecified organism Status: Acute - Plan 81-year-old female admitted for healthcare associated pneumonia after outpatient treatment failure. //Healthcare associated pneumonia //Outpatient treatment failure //Suspected resistance Penicillin allergy present S/p azithromycin, aztreonam IV and Levaquin Continue with supplemental oxygen ID and pulmonology following. Status post bronchoscopy 08/25/17 which showed mild tracheobronchitis, excess mucoid secretion and plugging. Follow-up with bronch cultures and preliminary sputum cultures shows heavy growth normal respiratory paul. Blood cultures shows no growth to date = 09/04. Respiratory status stable. Continues on antibiotics. Appreciate pulmonology's assistance. = 09/05. Improvement. Continue on doxycycline as per ID. Slow improvement. //COPD exacerbation with a history of 2 L O2 dependence/CRF //Hypoxia Continue oxygen as needed currently on 5 L and need to wean as tolerated S/p Solu-Medrol wean and dc prednisone Mucinex Appreciate pulmonology, Dr. Mendez following. = Appreciate pulmonology assistance. Continue oxygen and antibiotics. =09/05 Down to 3 L nasal cannula today. Discussed with nursing. //Hypokalemia. = 09/05 3.3. Replace. Continue to monitor. //Subacute right leg fracture/debility Patient from a group home facility Continue PT here. Suspect she will need to return to SNF for further rehabilitation. She is desiring [place] [facility]. //Hypertension, chronic essential Continue baseline treatment, currently on Norvasc, lasix, hydralazine, metoprolol and Cozaar, will start Vasotec IV as needed for uncontrolled blood pressure Follow blood pressures Adjust treatments as needed //General anxiety disorder Busoar and Ativan as needed. //DVT prophylaxis SQ heparin Discharge Planning: SNF When cleared by pulmonology and ID. (1) COPD (chronic obstructive pulmonary disease) Qualifiers: COPD type: COPD with acute lower respiratory infection Qualified Code(s): J44.0 - Chronic obstructive pulmonary disease with acute lower respiratory infection (2) Pneumonia Qualifiers: Pneumonia type: due to unspecified organism Laterality: left Lung location: lower lobe of lung Qualified Code(s): J18.1 - Lobar pneumonia, unspecified organism
[2017-09-05] MEDS: Temazepam 15 MG Capsule PO PRN (23:01)
--- NOTE | 2017-09-06 03:08 | XR ---
EXAM DATE: 09/06/2017 2:47 AM EDT AGE/SEX: 81 years / Female INDICATIONS: Pneumonia. CLINICAL DATA: This is the patient's subsequent encounter. Patient reports that signs and symptoms h ave been present for 1 week and indicates a pain score of Nonresponsive. MEDICAL/SURGICAL HISTORY: . Chronic obstructive pulmonary disease. Hypertension. None. COMPARISON: [facility] [place], CHEST 1V SINGLE AP, 09/01/2017. . FINDINGS: A single AP view of the chest demonstrates persistent bibasilar airspace disease with probable associ ated effusions, unchanged. Biapical pleural-parenchymal scarring. Heart size is upper limits of [place]. Osseous structures are intact CONCLUSION: 1. Persistent bibasilar airspace disease with associated effusions, unchanged. 2. Persistent biapical pleural-parenchymal scarring. Electronically signed by: Sher Khan MD 09/06/2017 3:06 AM EDT
[2017-09-06 04:53] LABS: Anion Gap 4 meq/L (5-15); Blood Urea Nitrogen 14 mg/dL (7-18); Calcium 8.5 mg/dL (8.5-10.1); Carbon Dioxide 33.3 meq/L (21.0-32.0); Chloride 104 meq/L (98-107); Glomerular Filtration Rate Greater Than 89 mL/min (>89); Glucose,Random 119 mg/dL (74-106); Potassium 4.7 meq/L (3.5-5.1); Sodium 141 meq/L (136-145)
[2017-09-06 05:11] LABS: Baso % (Auto) 0.3 % (0.0-2.0); Eos % (Auto) 0.1 % (0.0-4.0); Hematocrit 25.1 % (35.0-46.0); Hemoglobin 8.3 gm/dL (11.6-15.3); Lymph # (Auto) 0.4 th/mm3 (1.0-4.8); Mean Corpuscular HGB Conc 33.2 % (32.0-36.0); Mean Corpuscular Hemoglobin 30.2 pg (27.0-34.0); Mean Platelet Volume 8.8 fL (7.0-11.0); Mono # (Auto) 0.2 th/mm3 (0.0-0.9); Mono % (Auto) 3.1 % (0.0-8.0); Neut # (Auto) 5.1 th/mm3 (1.8-7.7); Neut % (Auto) 89.5 % (16.0-70.0); Platelet Count 225 th/mm3 (150-450); Red Blood Count 2.75 mil/mm3 (4.00-5.30); Red Cell Distribution Width 15.8 % (11.6-17.2); White Blood Count 5.7 th/mm3 (4.0-11.0)
[2017-09-06] MEDS: Heparin - SQ 10,000 UNITS/ML Vial SQ SCH ×2 (06:17→19:28)
--- NOTE | 2017-09-06 09:21 | P.PN ---
Physical Exam Vital signs: Vital Signs 09/05/17 10:00 09/05/17 11:00 09/05/17 12:00 Temperature 98.8 F Pulse Rate 84 92 H 88 Respiratory Rate 25 H 30 H 24 Blood Pressure 115/56 L 130/62 119/57 L Pulse Oximetry 95 91 L 93 L 09/05/17 13:00 09/05/17 14:00 09/05/17 14:50 Temperature Pulse Rate 98 H 88 96 H Respiratory Rate 27 H 22 24 Blood Pressure 137/63 113/54 L Pulse Oximetry 90 L 94 L 09/05/17 15:00 09/05/17 16:00 09/05/17 17:00 Temperature 99.2 F Pulse Rate 96 H 96 H 93 H Respiratory Rate 25 H 25 H 23 Blood Pressure 117/82 125/60 129/60 Pulse Oximetry 95 88 L 94 L 09/05/17 18:00 09/05/17 19:00 09/05/17 20:00 Temperature 98.0 F Pulse Rate 94 H 97 H 101 H Respiratory Rate 24 27 H 27 H Blood Pressure 151/67 H 135/63 129/61 Pulse Oximetry 93 L 90 L 92 L 09/05/17 21:00 09/05/17 21:30 09/05/17 22:00 Temperature Pulse Rate 84 82 83 Respiratory Rate 22 20 26 H Blood Pressure 143/66 H Pulse Oximetry 96 96 94 L 09/05/17 22:01 09/05/17 23:00 09/06/17 00:00 Temperature 99.1 F Pulse Rate 84 87 86 Respiratory Rate 29 H 23 21 Blood Pressure 170/73 H 164/71 H 164/73 H Pulse Oximetry 94 L 90 L 97 09/06/17 01:00 09/06/17 02:00 09/06/17 03:00 Temperature Pulse Rate 86 92 H 84 Respiratory Rate 21 29 H 20 Blood Pressure 148/72 H 147/70 H 172/75 H Pulse Oximetry 97 95 99 09/06/17 04:00 09/06/17 04:13 09/06/17 08:30 Temperature 98.3 F Pulse Rate 86 87 98 H Respiratory Rate 20 20 17 Blood Pressure 168/74 H Pulse Oximetry 100 90 L Intake & Output 09/05/17 09/06/17 09/06/17 18:59 06:59 18:59 Intake Total 800 / 800 240 / 240 Output Total 375 / 375 Balance 425 / 425 240 / 240 Weight 44 kg Intake: Oral 800 / 800 240 / 240 Output: Urine 200 / 200 Stool 0 / 0 Urine Amount (Catheter) 175 / 175 Female External 175 / 175 Other: # Voids 1 Date of Last Bowel Movement 09/03/17 09/03/17 # Bowel Movements 0 0 # Incontinent Bowel Movements 2 - Urinary Catheter Management Female External Cath placed during this visit: no Results - Labs CBC & Chem 7: 09/06/17 03:21 09/06/17 03:21 Laboratory Results - last 24 hr 09/05/17 09/06/17 09/06/17 10:58 03:21 03:21 WBC 5.7 RBC 2.75 L Hgb 8.3 L Hct 25.1 L MCV 91.0 MCH 30.2 MCHC 33.2 RDW 15.8 Plt Count 225 MPV 8.8 Neut % (Auto) 89.5 H Lymph % (Auto) 7.0 L [place] % (Auto) 3.1 Eos % (Auto) 0.1 Baso % (Auto) 0.3 Neut # (Auto) 5.1 Lymph # (Auto) 0.4 L [place] # (Auto) 0.2 Eos # (Auto) 0.0 Baso # (Auto) 0.0 WBC Differential . Differential Comment Auto diff final Hematology Comments Sodium 142 141 Potassium 3.3 L 4.7 D Chloride 100 104 Carbon Dioxide 39.5 H 33.3 H Anion Gap 3 L 4 L BUN 13 14 Creatinine 0.70 0.63 Estimated GFR 80 L Greater than 89 Random Glucose 72 L 119 H Calcium 8.7 8.5 Total Bilirubin 0.2 AST 9 L ALT 16 Alkaline Phosphatase 99 Total Protein 5.1 L Albumin 2.2 L - Imaging Impressions Chest X-Ray 09/06/17 06:00 CONCLUSION: 1. Persistent bibasilar airspace disease with associated effusions, unchanged. 2. Persistent biapical pleural-parenchymal scarring. Assessment and Plan - Assessment (1) COPD (chronic obstructive pulmonary disease) Code(s): J44.9 - Chronic obstructive pulmonary disease, unspecified Status: Acute (2) Pneumonia Code(s): J18.9 - Pneumonia, unspecified organism Status: Acute (1) COPD (chronic obstructive pulmonary disease) Qualifiers: COPD type: COPD with acute lower respiratory infection Qualified Code(s): J44.0 - Chronic obstructive pulmonary disease with acute lower respiratory infection (2) Pneumonia Qualifiers: Pneumonia type: due to unspecified organism Laterality: left Lung location: lower lobe of lung Qualified Code(s): J18.1 - Lobar pneumonia, unspecified organism
[2017-09-06] MEDS: hydrALAZINE 25 MG Tablet PO SCH ×3 (09:28→19:28)
[2017-09-06] MEDS: Baclofen 10 MG Tablet PO SCH ×2 (09:29→21:14)
[2017-09-06] MEDS: Lactobacillus Acidophilus/L. Spores Tablet PO SCH ×3 (09:29→19:28)
[2017-09-06] MEDS: amLODIPine 10 MG Tablet PO SCH (09:29)
[2017-09-06] MEDS: Vitamin B Complex/Vit C/Folic Tablet PO SCH (09:29)
[2017-09-06] MEDS: predniSONE 20 MG Tablet PO SCH ×2 (09:29→21:14)
[2017-09-06] MEDS: Furosemide 40 MG Tablet PO SCH (09:29)
[2017-09-06] MEDS: Calcium Carbonate 500 MG Tablet PO SCH ×2 (09:29→21:14)
[2017-09-06] MEDS: Senna/Docusate Sodium 8.6/50 MG Tablet PO SCH ×2 (09:30→23:01)
[2017-09-06] MEDS: Metoprolol Tartrate 50 MG Tablet PO SCH ×2 (09:30→21:15)
[2017-09-06] MEDS: Tiotropium Bromide 18 MCG/ACT Inhaler INH SCH (09:31)
--- NOTE | 2017-09-06 10:12 | P.PNIM ---
Subjective Interval history: Patient is breathing much better now. Is only on 3 L by nasal cannula. Can move out of the ICU. Discussed with RN and patient. Continue physical therapy and occupational therapy Hopefully discharge to SNF in the next few days Physical Exam Vital signs: Vital Signs 09/05/17 10:00 09/05/17 11:00 09/05/17 12:00 Temperature 98.8 F Pulse Rate 84 92 H 88 Respiratory Rate 25 H 30 H 24 Blood Pressure 115/56 L 130/62 119/57 L Pulse Oximetry 95 91 L 93 L 09/05/17 13:00 09/05/17 14:00 09/05/17 14:50 Temperature Pulse Rate 98 H 88 96 H Respiratory Rate 27 H 22 24 Blood Pressure 137/63 113/54 L Pulse Oximetry 90 L 94 L 09/05/17 15:00 09/05/17 16:00 09/05/17 17:00 Temperature 99.2 F Pulse Rate 96 H 96 H 93 H Respiratory Rate 25 H 25 H 23 Blood Pressure 117/82 125/60 129/60 Pulse Oximetry 95 88 L 94 L 09/05/17 18:00 09/05/17 19:00 09/05/17 20:00 Temperature 98.0 F Pulse Rate 94 H 97 H 101 H Respiratory Rate 24 27 H 27 H Blood Pressure 151/67 H 135/63 129/61 Pulse Oximetry 93 L 90 L 92 L 09/05/17 21:00 09/05/17 21:30 09/05/17 22:00 Temperature Pulse Rate 84 82 83 Respiratory Rate 22 20 26 H Blood Pressure 143/66 H Pulse Oximetry 96 96 94 L 09/05/17 22:01 09/05/17 23:00 09/06/17 00:00 Temperature 99.1 F Pulse Rate 84 87 86 Respiratory Rate 29 H 23 21 Blood Pressure 170/73 H 164/71 H 164/73 H Pulse Oximetry 94 L 90 L 97 09/06/17 01:00 09/06/17 02:00 09/06/17 03:00 Temperature Pulse Rate 86 92 H 84 Respiratory Rate 21 29 H 20 Blood Pressure 148/72 H 147/70 H 172/75 H Pulse Oximetry 97 95 99 09/06/17 04:00 09/06/17 04:13 09/06/17 08:30 Temperature 98.3 F Pulse Rate 86 87 98 H Respiratory Rate 20 20 17 Blood Pressure 168/74 H Pulse Oximetry 100 90 L Intake & Output 09/05/17 09/06/17 09/06/17 18:59 06:59 18:59 Intake Total 800 / 800 240 / 240 Output Total 375 / 375 Balance 425 / 425 240 / 240 Weight 44 kg Intake: Oral 800 / 800 240 / 240 Output: Urine 200 / 200 Stool 0 / 0 Urine Amount (Catheter) 175 / 175 Female External 175 / 175 Other: # Voids 1 Date of Last Bowel Movement 09/03/17 09/03/17 09/03/17 # Bowel Movements 0 0 # Incontinent Bowel Movements 2 Narrative: GENERAL: Awake alert and oriented 3 talkative and cooperative SKIN: Warm and dry. HEAD: Atraumatic. Normocephalic. EYES: Pupils equal and round. No scleral icterus. No injection or drainage. ENT: No nasal bleeding or discharge. Mucous membranes pink and moist. NECK: Trachea midline. No JVD. CARDIOVASCULAR: Regular rate and rhythm. S1-S2 no S3 or S4 RESPIRATORY: No accessory muscle use. Clear to auscultation. Breath sounds equal bilaterally. Few scattered rhonchi decreased breath sounds bilaterally GASTROINTESTINAL: Abdomen soft, non-tender, nondistended. Hepatic and splenic margins not palpable. MUSCULOSKELETAL: Extremities without clubbing, cyanosis, or edema. No obvious deformities. NEUROLOGICAL: Awake and alert. No obvious cranial nerve deficits. Motor grossly within normal limits. 4 out of 5 muscle strength in the arms and legs. Normal speech. PSYCHIATRIC: Appropriate mood and affect; insight and judgment normal. - Urinary Catheter Management Female External Cath placed during this visit: no Results - Labs CBC & Chem 7: 09/06/17 03:21 09/06/17 03:21 Laboratory Results - last 24 hr 09/05/17 09/06/17 09/06/17 10:58 03:21 03:21 WBC 5.7 RBC 2.75 L Hgb 8.3 L Hct 25.1 L MCV 91.0 MCH 30.2 MCHC 33.2 RDW 15.8 Plt Count 225 MPV 8.8 Neut % (Auto) 89.5 H Lymph % (Auto) 7.0 L [place] % (Auto) 3.1 Eos % (Auto) 0.1 Baso % (Auto) 0.3 Neut # (Auto) 5.1 Lymph # (Auto) 0.4 L [place] # (Auto) 0.2 Eos # (Auto) 0.0 Baso # (Auto) 0.0 WBC Differential . Differential Comment Auto diff final Hematology Comments Sodium 142 141 Potassium 3.3 L 4.7 D Chloride 100 104 Carbon Dioxide 39.5 H 33.3 H Anion Gap 3 L 4 L BUN 13 14 Creatinine 0.70 0.63 Estimated GFR 80 L Greater than 89 Random Glucose 72 L 119 H Calcium 8.7 8.5 Total Bilirubin 0.2 AST 9 L ALT 16 Alkaline Phosphatase 99 Total Protein 5.1 L Albumin 2.2 L - Imaging Impressions Chest X-Ray 09/06/17 06:00 CONCLUSION: 1. Persistent bibasilar airspace disease with associated effusions, unchanged. 2. Persistent biapical pleural-parenchymal scarring. - Procedures Fiberoptic bronchoscopy, flexible. REASON FOR BRONCHOSCOPY: Respiratory failure, mucous plugging. PROCEDURE: Fiberoptic bronchoscopy performed via LMA. Vocal cords intact. Trachea moderately hyperemic. [place] sharp. Right main stem bronchus, right upper, middle, and lower lobe, left main bronchus, left upper and lower lobes all inspected. Thick mucus plugs removed throughout the tracheobronchial tree. All plugs were removed. Washings were obtained from both sides of the tracheobronchial tree for routine TB, fungal cultures as well as cytological exam. Procedure well tolerated. The patient was transferred to Recovery in stable condition. IMPRESSION: 1. Mild tracheobronchitis. 2. Excess mucoid secretion and plugging. 3. Samples obtained as above. 4. Procedure well tolerated. 5. The patient was transferred to recovery in stable condition. Chelsea Tran MD WWW/TODD Assessment and Plan - Assessment (1) COPD (chronic obstructive pulmonary disease) Code(s): J44.9 - Chronic obstructive pulmonary disease, unspecified Status: Acute (2) Pneumonia Code(s): J18.9 - Pneumonia, unspecified organism Status: Acute - Plan 81-year-old female admitted for healthcare associated pneumonia after outpatient treatment failure. Healthcare associated pneumonia Outpatient treatment failure Suspected resistance Penicillin allergy present Completed azithromycin and continue aztreonam IV and Levaquin per infectious disease Continue with supplemental oxygen ID and pulmonology following. Status post bronchoscopy 08/25/17 which showed mild tracheobronchitis, excess mucoid secretion and plugging. Follow-up with bronch cultures and preliminary sputum cultures shows heavy growth normal respiratory paul. Blood cultures shows no growth to date Weaned off oxygen down to 3 L COPD exacerbation with a history of 2 L O2 dependence Hypoxia Continue oxygen as needed currently on 20 L a wean as tolerated ON HIGH FLOW OXYGEN Switch to Solu-Medrol IV and wean as tolerated, currently on 40MG every 12 Mucinex Appreciate pulmonology, Dr. Mendez following. Weaned off oxygen down to 3 L Subacute right leg fracture/debility Patient was in [facility] as an outpatient at a [facility] facility Continue PT here. Suspect she will need to return to SNF for further rehabilitation. She is desiring [place] rehab. Hypertension, chronic essential Continue baseline treatment, currently on Norvasc, will start Vasotec IV as needed for uncontrolled blood pressure, will add Cozaar to the regimen Follow blood pressures Adjust treatments as needed HYDRALAZINE 25MG TID General anxiety disorder Ativan as needed. ANEMIA AM LABS MAY NEED TRANSFUSION IN FUTURE HYPOKALEMIA WILL REPLACE POTASSIUM DVT prophylaxis Rosario PATEL RN AND PATIENT Transfer out of ICU Code Status: Full code Discussed Condition With: RN and patient Transfer out of ICU Discharge Planning: [facility] ONCE IMPROVED Transfer out of ICU Hopefully to rehab tomorrow maybe (1) COPD (chronic obstructive pulmonary disease) Qualifiers: COPD type: COPD with acute lower respiratory infection Qualified Code(s): J44.0 - Chronic obstructive pulmonary disease with acute lower respiratory infection (2) Pneumonia Qualifiers: Pneumonia type: due to unspecified organism Laterality: left Lung location: lower lobe of lung Qualified Code(s): J18.1 - Lobar pneumonia, unspecified organism
--- NOTE | 2017-09-06 13:05 | P.PNID ---
Subjective Remarks: Patient reports that she feels better. Appears comfortable. Remains on 3 L O2 via nasal cannula. Little cough. White secretions. Afebrile. No nausea. Admitted with SOB from rehab facility. Consult requested for pneumonia. Lines: peripheral IV intact Past Medical History: Chronic obstructive pulmonary disease, hypertension, anxiety disorder, right hip fracture, left leg fracture, status post ORIF on 07/05/2017, right wrist fracture. Allergies/Adverse Reactions: Allergies Penicillins Allergy (Intermediate, Verified 08/21/17 03:53) Blister Objective Vital Signs 09/05/17 14:00 09/05/17 14:50 09/05/17 15:00 Temperature Pulse Rate 88 96 H 96 H Respiratory Rate 22 24 25 H Blood Pressure 113/54 L 117/82 Pulse Oximetry 94 L 95 09/05/17 16:00 09/05/17 17:00 09/05/17 18:00 Temperature 99.2 F Pulse Rate 96 H 93 H 94 H Respiratory Rate 25 H 23 24 Blood Pressure 125/60 129/60 151/67 H Pulse Oximetry 88 L 94 L 93 L 09/05/17 19:00 09/05/17 20:00 09/05/17 21:00 Temperature 98.0 F Pulse Rate 97 H 101 H 84 Respiratory Rate 27 H 27 H 22 Blood Pressure 135/63 129/61 143/66 H Pulse Oximetry 90 L 92 L 96 09/05/17 21:30 09/05/17 22:00 09/05/17 22:01 Temperature Pulse Rate 82 83 84 Respiratory Rate 20 26 H 29 H Blood Pressure 170/73 H Pulse Oximetry 96 94 L 94 L 09/05/17 23:00 09/06/17 00:00 09/06/17 01:00 Temperature 99.1 F Pulse Rate 87 86 86 Respiratory Rate 23 21 21 Blood Pressure 164/71 H 164/73 H 148/72 H Pulse Oximetry 90 L 97 97 09/06/17 02:00 09/06/17 03:00 09/06/17 04:00 Temperature 98.3 F Pulse Rate 92 H 84 86 Respiratory Rate 29 H 20 20 Blood Pressure 147/70 H 172/75 H 168/74 H Pulse Oximetry 95 99 100 09/06/17 04:13 09/06/17 08:30 Temperature Pulse Rate 87 98 H Respiratory Rate 20 17 Blood Pressure Pulse Oximetry 90 L Intake & Output 09/05/17 09/06/17 09/06/17 18:59 06:59 18:59 Intake Total 800 / 800 240 / 240 Output Total 375 / 375 Balance 425 / 425 240 / 240 Weight 44 kg Intake: Oral 800 / 800 240 / 240 Output: Urine 200 / 200 Stool 0 / 0 Urine Amount (Catheter) 175 / 175 Female External 175 / 175 Other: # Voids 1 Date of Last Bowel Movement 09/03/17 09/03/17 09/03/17 # Bowel Movements 0 0 # Incontinent Bowel Movements 2 Lab - Hematology Results 09/06/17 03:21 WBC 5.7 RBC 2.75 L Hgb 8.3 L Hct 25.1 L MCV 91.0 MCH 30.2 MCHC 33.2 RDW 15.8 Plt Count 225 MPV 8.8 Neut % (Auto) 89.5 H Lymph % (Auto) 7.0 L [place] % (Auto) 3.1 Eos % (Auto) 0.1 Baso % (Auto) 0.3 Neut # (Auto) 5.1 Lymph # (Auto) 0.4 L [place] # (Auto) 0.2 Eos # (Auto) 0.0 Baso # (Auto) 0.0 WBC Differential . Differential Comment Auto diff final Hematology Comments Lab - Chemistry Results 09/05/17 09/06/17 10:58 03:21 Sodium 142 141 Potassium 3.3 L 4.7 D Chloride 100 104 Carbon Dioxide 39.5 H 33.3 H Anion Gap 3 L 4 L BUN 13 14 Creatinine 0.70 0.63 Estimated GFR 80 L Greater than 89 Random Glucose 72 L 119 H Calcium 8.7 8.5 Total Bilirubin 0.2 AST 9 L ALT 16 Alkaline Phosphatase 99 Total Protein 5.1 L Albumin 2.2 L Imaging: ITS Impressions Chest CTA 08/21/17 00:00 CONCLUSION: 1. Left lower lobe consolidation and patchy infiltrate right upper lobe. 2. Small left pleural effusion. 3. Mild emphysema without mass. 4. No evidence for pulmonary embolism. 5. Coronary artery calcifications. 6. Multiple hepatic low densities. 7. Extensive calcification of the upper abdominal aorta. Chest X-Ray 09/06/17 06:00 CONCLUSION: 1. Persistent bibasilar airspace disease with associated effusions, unchanged. 2. Persistent biapical pleural-parenchymal scarring. Physical Exam: PHYSICAL EXAMINATION: GENERAL: Frail. No acute distress. HEENT: Head is atraumatic. Extraocular movements grossly intact. Pupils reactive to light. No icterus. Oropharynx moist mucosa without lesions. NECK: Supple. No adenopathy. LUNGS: Decreased BS. HEART: Regular S1, S2. No audible murmurs, rubs or gallops. ABDOMEN: Bowel sounds present. Soft, nontender. No masses palpable. EXTREMITIES: No clubbing or cyanosis. Multiple ecchymotic lesions of the legs and upper extremities. No clubbing, cyanosis or edema. SKIN: No diffuse rash. NEUROLOGIC: Alert and oriented. No gross focal findings. PSYCHIATRIC: Mood is appropriate. Calm and cooperative. Assessment and Plan - Plan IMPRESSION: 1. Pneumonia involving both lower lobes of the lung. Post bronchoscopy. Bronchoscopy culture now reported as nl paul. 2. Status post fracture of the right leg. 3. History of chronic obstructive pulmonary disease. 4. PENICILLIN ALLERGY. Stable. RECOMMENDATIONS: Continue doxycycline p.o. for another 7 days. I will sign off now. Please call if further input is needed.
[2017-09-06] MEDS: Temazepam 15 MG Capsule PO PRN (23:04)
[2017-09-07 04:51] LABS: Baso % (Auto) 0.3 % (0.0-2.0); Eos % (Auto) 0.1 % (0.0-4.0); Hematocrit 24.5 % (35.0-46.0); Hemoglobin 8.1 gm/dL (11.6-15.3); Lymph # (Auto) 0.2 th/mm3 (1.0-4.8); Lymph % (Auto) 4.2 % (9.0-44.0); Mean Corpuscular HGB Conc 32.9 % (32.0-36.0); Mean Corpuscular Hemoglobin 30.1 pg (27.0-34.0); Mean Corpuscular Volume 91.5 fL (80.0-100.0); Mean Platelet Volume 8.1 fL (7.0-11.0); Mono # (Auto) 0.1 th/mm3 (0.0-0.9); Mono % (Auto) 2.9 % (0.0-8.0); Neut # (Auto) 4.3 th/mm3 (1.8-7.7); Neut % (Auto) 92.5 % (16.0-70.0); Platelet Count 322 th/mm3 (150-450); Red Blood Count 2.67 mil/mm3 (4.00-5.30); Red Cell Distribution Width 16.1 % (11.6-17.2); White Blood Count 4.7 th/mm3 (4.0-11.0)
[2017-09-07 05:04] LABS: Alanine Aminotransferase 13 U/L (10-53); Albumin 1.9 g/dL (3.4-5.0); Anion Gap 4 meq/L (5-15); Aspartate Aminotransferase 5 U/L (15-37); Blood Urea Nitrogen 17 mg/dL (7-18); Calcium 8.8 mg/dL (8.5-10.1); Carbon Dioxide 36.9 meq/L (21.0-32.0); Chloride 101 meq/L (98-107); Glomerular Filtration Rate 76 mL/min (>89); Glucose,Random 138 mg/dL (74-106); Phosphorus 2.4 mg/dL (2.5-4.9); Potassium 4.5 meq/L (3.5-5.1); Sodium 142 meq/L (136-145)
[2017-09-07 05:07] LABS: Alkaline Phosphatase 93 U/L (45-117); Total Protein 4.8 g/dL (6.4-8.2)
[2017-09-07] MEDS: Heparin - SQ 10,000 UNITS/ML Vial SQ SCH ×2 (07:15→18:16)
[2017-09-07] MEDS: hydrALAZINE 25 MG Tablet PO SCH ×3 (09:30→18:15)
[2017-09-07] MEDS: amLODIPine 10 MG Tablet PO SCH (09:31)
[2017-09-07] MEDS: Furosemide 40 MG Tablet PO SCH (09:31)
[2017-09-07] MEDS: predniSONE 20 MG Tablet PO SCH ×2 (09:32→21:42)
[2017-09-07] MEDS: Lactobacillus Acidophilus/L. Spores Tablet PO SCH ×3 (09:33→18:17)
--- NOTE | 2017-09-07 09:49 | P.PNIM ---
Subjective Interval history: 09-07 Patient is breathing much better now. Is only on 3 L by nasal cannula. Can move out of the ICU. Discussed with RN and patient. Continue physical therapy and occupational therapy Hopefully discharge to [facility] in the next few days 09-08 HAS SOME THRUSH ON HER TONGUE WILL DO MAGIC MOUTHWASH DW RN AND PT AND FAMILY MOVE OUT OF ICU TRY TO WEAN BACK TO 2L BY NC WHICH IS BASELINE AT [facility] Physical Exam Vital signs: Vital Signs 09/06/17 10:00 09/06/17 11:00 09/06/17 12:00 Temperature Pulse Rate 91 H 81 87 Respiratory Rate 29 H 22 30 H Blood Pressure 155/69 H 124/57 L 138/62 Pulse Oximetry 95 100 94 L 09/06/17 13:00 09/06/17 14:00 09/06/17 15:00 Temperature Pulse Rate 89 93 H 97 H Respiratory Rate 27 H 28 H 32 H Blood Pressure 144/62 H 130/59 L 119/56 L Pulse Oximetry 91 L 96 95 09/06/17 15:39 09/06/17 16:00 09/06/17 20:00 Temperature 98.9 F Pulse Rate 93 H 101 H 108 H Respiratory Rate 24 28 H 23 Blood Pressure 155/69 H 111/53 L Pulse Oximetry 95 95 09/06/17 21:20 09/07/17 00:00 09/07/17 03:57 Temperature 98.8 F Pulse Rate 98 H 94 H 92 H Respiratory Rate 20 20 22 Blood Pressure 146/66 H Pulse Oximetry 95 99 09/07/17 04:00 09/07/17 07:24 Temperature 98.5 F Pulse Rate 94 H 95 H Respiratory Rate 20 23 Blood Pressure 145/67 H Pulse Oximetry 100 98 Intake & Output 09/06/17 09/07/17 09/07/17 18:59 06:59 18:59 Intake Total 100 / 100 Output Total 200 / 200 500 / 500 Balance -200 / -200 -400 / -400 Weight 44.5 kg Intake: Oral 100 / 100 Output: Urine 500 / 500 Urine Amount (Catheter) 200 / 200 Female External 200 / 200 Other: # Voids 3 2 Date of Last Bowel Movement 09/03/17 09/06/17 # Bowel Movements 1 0 Narrative: GENERAL: Awake alert and oriented 3 talkative and cooperative SKIN: Warm and dry. HEAD: Atraumatic. Normocephalic. EYES: Pupils equal and round. No scleral icterus. No injection or drainage. ENT: No nasal bleeding or discharge. Mucous membranes pink and moist. NECK: Trachea midline. No JVD. CARDIOVASCULAR: Regular rate and rhythm. S1-S2 no S3 or S4 RESPIRATORY: No accessory muscle use. Clear to auscultation. Breath sounds equal bilaterally. Few scattered rhonchi decreased breath sounds bilaterally GASTROINTESTINAL: Abdomen soft, non-tender, nondistended. Hepatic and splenic margins not palpable. MUSCULOSKELETAL: Extremities without clubbing, cyanosis, or edema. No obvious deformities. NEUROLOGICAL: Awake and alert. No obvious cranial nerve deficits. Motor grossly within normal limits. 4 out of 5 muscle strength in the arms and legs. Normal speech. PSYCHIATRIC: Appropriate mood and affect; insight and judgment normal. - Urinary Catheter Management Female External Cath placed during this visit: no Results - Labs CBC & Chem 7: 09/07/17 03:15 09/07/17 03:15 Laboratory Results - last 24 hr 09/07/17 09/07/17 03:15 03:15 WBC 4.7 RBC 2.67 L Hgb 8.1 L Hct 24.5 L MCV 91.5 MCH 30.1 MCHC 32.9 RDW 16.1 Plt Count 322 D MPV 8.1 Neut % (Auto) 92.5 H Lymph % (Auto) 4.2 L [place] % (Auto) 2.9 Eos % (Auto) 0.1 Baso % (Auto) 0.3 Neut # (Auto) 4.3 Lymph # (Auto) 0.2 L [place] # (Auto) 0.1 Eos # (Auto) 0.0 Baso # (Auto) 0.0 WBC Differential . Differential Comment Auto diff final Sodium 142 Potassium 4.5 Chloride 101 Carbon Dioxide 36.9 H Anion Gap 4 L BUN 17 Creatinine 0.73 Estimated GFR 76 L Random Glucose 138 H Calcium 8.8 Phosphorus 2.4 L Magnesium 2.0 Total Bilirubin 0.2 AST 5 L ALT 13 Alkaline Phosphatase 93 Total Protein 4.8 L Albumin 1.9 L - Imaging Chest CTA 08/21/17 00:00 CONCLUSION: 1. Left lower lobe consolidation and patchy infiltrate right upper lobe. 2. Small left pleural effusion. 3. Mild emphysema without mass. 4. No evidence for pulmonary embolism. 5. Coronary artery calcifications. 6. Multiple hepatic low densities. 7. Extensive calcification of the upper abdominal aorta. Chest X-Ray 08/21/17 03:59 CONCLUSION: Left lower lobe pulmonary consolidation versus atelectasis and possible small left pleural effusion. Chest X-Ray 08/25/17 00:00 CONCLUSION: Bibasilar areas of suspected atelectasis or consolidation. There may be mild bilateral pleural effusions. Chest X-Ray 08/25/17 06:00 CONCLUSION: 1. No significant interval change. 2. Stable small left pleural effusion and associated left lower lobe airspace consolidation. Chest X-Ray 09/01/17 06:00 CONCLUSION: Bilateral mostly basilar airspace disease and small effusions similar to prior exam. Chest X-Ray 09/06/17 06:00 CONCLUSION: 1. Persistent bibasilar airspace disease with associated effusions, unchanged. 2. Persistent biapical pleural-parenchymal scarring. - Procedures Fiberoptic bronchoscopy, flexible. REASON FOR BRONCHOSCOPY: Respiratory failure, mucous plugging. PROCEDURE: Fiberoptic bronchoscopy performed via LMA. Vocal cords intact. Trachea moderately hyperemic. [place] sharp. Right main stem bronchus, right upper, middle, and lower lobe, left main bronchus, left upper and lower lobes all inspected. Thick mucus plugs removed throughout the tracheobronchial tree. All plugs were removed. Washings were obtained from both sides of the tracheobronchial tree for routine TB, fungal cultures as well as cytological exam. Procedure well tolerated. The patient was transferred to Recovery in stable condition. IMPRESSION: 1. Mild tracheobronchitis. 2. Excess mucoid secretion and plugging. 3. Samples obtained as above. 4. Procedure well tolerated. 5. The patient was transferred to recovery in stable condition. Chelsea Tran MD WWW/TODD Assessment and Plan - Assessment (1) COPD (chronic obstructive pulmonary disease) Code(s): J44.9 - Chronic obstructive pulmonary disease, unspecified Status: Acute (2) Pneumonia Code(s): J18.9 - Pneumonia, unspecified organism Status: Acute - Plan 81-year-old female admitted for healthcare associated pneumonia after outpatient treatment failure. Healthcare associated pneumonia Outpatient treatment failure Suspected resistance Penicillin allergy present Completed azithromycin and continue aztreonam IV and Levaquin per infectious disease Continue with supplemental oxygen ID and pulmonology following. Status post bronchoscopy 08/25/17 which showed mild tracheobronchitis, excess mucoid secretion and plugging. Follow-up with bronch cultures and preliminary sputum cultures shows heavy growth normal respiratory paul. Blood cultures shows no growth to date Weaned off oxygen down to 3 L SWITCHED TO DOXYCYCLINE 100MG PO BID FOR 7 MORE DAYS COPD exacerbation with a history of 2 L O2 dependence Hypoxia Continue oxygen as needed currently on 20 L a wean as tolerated ON HIGH FLOW OXYGEN Switch to Solu-Medrol IV and wean as tolerated, currently on 40MG every 12 Mucinex Appreciate pulmonology, Dr. Mendez following. Weaned off oxygen down to 3 L Subacute right leg fracture/debility Patient was in PT as an outpatient at a [facility] Continue PT here. Suspect she will need to return to SNF for further rehabilitation. She is desiring [facility]. Hypertension, chronic essential Continue baseline treatment, currently on Norvasc, will start Vasotec IV as needed for uncontrolled blood pressure, will add Cozaar to the regimen Follow blood pressures Adjust treatments as needed HYDRALAZINE 25MG TID General anxiety disorder Ativan as needed. ANEMIA AM LABS MAY NEED TRANSFUSION IN FUTURE HYPOKALEMIA WILL REPLACE POTASSIUM ORAL THRUSH- START MAGIC MOUTH WASH DVT prophylaxis Rosario PATEL RN AND PATIENT Transfer out of ICU Discussed Condition With: RN AND PT AND FAMILY Discharge Planning: [facility] ONCE IMPROVED Transfer out of ICU Hopefully to rehab tomorrow maybe (1) COPD (chronic obstructive pulmonary disease) Qualifiers: COPD type: COPD with acute lower respiratory infection Qualified Code(s): J44.0 - Chronic obstructive pulmonary disease with acute lower respiratory infection (2) Pneumonia Qualifiers: Pneumonia type: due to unspecified organism Laterality: left Lung location: lower lobe of lung Qualified Code(s): J18.1 - Lobar pneumonia, unspecified organism
[2017-09-07] MEDS: Senna/Docusate Sodium 8.6/50 MG Tablet PO SCH ×2 (09:57→21:42)
[2017-09-07] MEDS: Vitamin B Complex/Vit C/Folic Tablet PO SCH (09:57)
[2017-09-07] MEDS: Calcium Carbonate 500 MG Tablet PO SCH ×2 (09:57→21:41)
[2017-09-07] MEDS: Tiotropium Bromide 18 MCG/ACT Inhaler INH SCH (09:57)
[2017-09-07] MEDS: Metoprolol Tartrate 50 MG Tablet PO SCH ×2 (09:57→21:42)
[2017-09-07] MEDS: Baclofen 10 MG Tablet PO SCH ×2 (10:16→21:42)
[2017-09-07] MEDS: Nystatin/Diphenhydramine/Lidocaine Mouthwash (Adult) 120 ML Botttle SWISH-SWAL SCH ×3 (14:18→21:44)
--- NOTE | 2017-09-07 17:43 | P.PNPL ---
Subjective Interval history: 81 YOWF with Pn,COPD,RF Breathing better no Fever Feels better, less anxious Weaned to 3LNC Appetite improving Physical Exam Vital signs: Vital Signs 09/06/17 20:00 09/06/17 21:20 09/07/17 00:00 Temperature 98.9 F 98.8 F Pulse Rate 108 H 98 H 94 H Respiratory Rate 23 20 20 Blood Pressure 111/53 L 146/66 H Pulse Oximetry 95 95 99 09/07/17 03:57 09/07/17 04:00 09/07/17 07:24 Temperature 98.5 F Pulse Rate 92 H 94 H 95 H Respiratory Rate 22 20 23 Blood Pressure 145/67 H Pulse Oximetry 100 98 09/07/17 08:00 09/07/17 12:00 09/07/17 15:22 Temperature 98.4 F 99.0 F Pulse Rate 94 H 84 91 H Respiratory Rate 16 16 18 Blood Pressure 159/72 H 121/58 L Pulse Oximetry 09/07/17 16:00 Temperature 99.0 F Pulse Rate 100 H Respiratory Rate 16 Blood Pressure 123/56 L Pulse Oximetry Intake & Output 09/06/17 09/07/17 09/07/17 18:59 06:59 18:59 Intake Total 100 / 100 Output Total 200 / 200 500 / 500 Balance -200 / -200 -400 / -400 Weight 44.5 kg Intake: Oral 100 / 100 Output: Urine 500 / 500 Urine Amount (Catheter) 200 / 200 Female External 200 / 200 Other: # Voids 3 2 Date of Last Bowel Movement 09/03/17 09/06/17 09/06/17 # Bowel Movements 1 0 GENERAL: Frail elderly WF, weak, NAD SKIN: Warm and dry. HEAD: Normocephalic. EYES: No scleral icterus. No injection or drainage. NECK: Supple, trachea midline. No JVD or lymphadenopathy. CARDIOVASCULAR: Regular rate and rhythm without murmurs, gallops, or rubs. RESPIRATORY: Breath sounds equal bilaterally. No accessory muscle use. Decreased chest excursion. GASTROINTESTINAL: Abdomen soft, non-tender, nondistended. MUSCULOSKELETAL: No cyanosis, or edema. BACK: Nontender without obvious deformity. No CVA tenderness. - Urinary Catheter Management Female External Cath placed during this visit: no Assessment and Plan - Plan IMPRESSION: Hypoxic RF COPD Pneumonia HTN Anxiety PLAN: Supplement 02 with 3LNC Use Flutter device Wean 02 to keep sat >90% Aerosol nebs Abx per ID DVT prophylaxis. Buspar 5 mg tid Prednisone 20 mg bid. OOB in chair Stable to tr to floor
--- NOTE | 2017-09-07 18:45 | P.PN ---
Subjective Interval history: ALERT NO SOB Physical Exam Vital signs: Vital Signs 09/06/17 20:00 09/06/17 21:20 09/07/17 00:00 Temperature 98.9 F 98.8 F Pulse Rate 108 H 98 H 94 H Respiratory Rate 23 20 20 Blood Pressure 111/53 L 146/66 H Pulse Oximetry 95 95 99 09/07/17 03:57 09/07/17 04:00 09/07/17 07:24 Temperature 98.5 F Pulse Rate 92 H 94 H 95 H Respiratory Rate 22 20 23 Blood Pressure 145/67 H Pulse Oximetry 100 98 09/07/17 08:00 09/07/17 12:00 09/07/17 15:22 Temperature 98.4 F 99.0 F Pulse Rate 94 H 84 91 H Respiratory Rate 16 16 18 Blood Pressure 159/72 H 121/58 L Pulse Oximetry 09/07/17 16:00 09/07/17 17:59 Temperature 99.0 F 97.9 F Pulse Rate 100 H Respiratory Rate 16 18 Blood Pressure 123/56 L 130/62 Pulse Oximetry 97 Intake & Output 09/06/17 09/07/17 09/07/17 18:59 06:59 18:59 Intake Total 100 / 100 240 / 240 Output Total 200 / 200 500 / 500 Balance -200 / -200 -400 / -400 240 / 240 Weight 44.5 kg Intake: Oral 100 / 100 240 / 240 Output: Urine 500 / 500 Urine Amount (Catheter) 200 / 200 Female External 200 / 200 Other: # Voids 3 2 Date of Last Bowel Movement 09/03/17 09/06/17 09/06/17 # Bowel Movements 1 0 Narrative: GENERAL: Awake alert and oriented 3 talkative and cooperative SKIN: Warm and dry. HEAD: Atraumatic. Normocephalic. EYES: Pupils equal and round. No scleral icterus. No injection or drainage. ENT: No nasal bleeding or discharge. Mucous membranes pink and moist. NECK: Trachea midline. No JVD. CARDIOVASCULAR: Regular rate and rhythm. S1-S2 no S3 or S4 RESPIRATORY: No accessory muscle use. Clear to auscultation. Breath sounds equal bilaterally. Few scattered rhonchi decreased breath sounds bilaterally GASTROINTESTINAL: Abdomen soft, non-tender, nondistended. Hepatic and splenic margins not palpable. MUSCULOSKELETAL: Extremities without clubbing, cyanosis, or edema. No obvious deformities. NEUROLOGICAL: Awake and alert. No obvious cranial nerve deficits. Motor grossly within normal limits. 4 out of 5 muscle strength in the arms and legs. Normal speech. PSYCHIATRIC: Appropriate mood and affect; insight and judgment normal. - Urinary Catheter Management Female External Cath placed during this visit: no Results - Labs CBC & Chem 7: 09/07/17 03:15 09/07/17 03:15 Laboratory Results - last 24 hr 09/07/17 09/07/17 03:15 03:15 WBC 4.7 RBC 2.67 L Hgb 8.1 L Hct 24.5 L MCV 91.5 MCH 30.1 MCHC 32.9 RDW 16.1 Plt Count 322 D MPV 8.1 Neut % (Auto) 92.5 H Lymph % (Auto) 4.2 L Lyon % (Auto) 2.9 Eos % (Auto) 0.1 Baso % (Auto) 0.3 Neut # (Auto) 4.3 Lymph # (Auto) 0.2 L Lyon # (Auto) 0.1 Eos # (Auto) 0.0 Baso # (Auto) 0.0 WBC Differential . Differential Comment Auto diff final Sodium 142 Potassium 4.5 Chloride 101 Carbon Dioxide 36.9 H Anion Gap 4 L BUN 17 Creatinine 0.73 Estimated GFR 76 L Random Glucose 138 H Calcium 8.8 Phosphorus 2.4 L Magnesium 2.0 Total Bilirubin 0.2 AST 5 L ALT 13 Alkaline Phosphatase 93 Total Protein 4.8 L Albumin 1.9 L - Procedures Fiberoptic bronchoscopy, flexible. REASON FOR BRONCHOSCOPY: Respiratory failure, mucous plugging. PROCEDURE: Fiberoptic bronchoscopy performed via LMA. Vocal cords intact. Trachea moderately hyperemic. [place] sharp. Right main stem bronchus, right upper, middle, and lower lobe, left main bronchus, left upper and lower lobes all inspected. Thick mucus plugs removed throughout the tracheobronchial tree. All plugs were removed. Washings were obtained from both sides of the tracheobronchial tree for routine TB, fungal cultures as well as cytological exam. Procedure well tolerated. The patient was transferred to Recovery in stable condition. IMPRESSION: 1. Mild tracheobronchitis. 2. Excess mucoid secretion and plugging. 3. Samples obtained as above. 4. Procedure well tolerated. 5. The patient was transferred to recovery in stable condition. Chelsea Tran MD WWW/TODD Assessment and Plan - Plan IMMRESSION COPD RESPIRATORY FAILURE IMPROVED PLAN O2 NEEDED BRONCHODILATOR THERAPY INCREASE ACTIVITY
[2017-09-08 04:27] LABS: Hematocrit 23.9 % (35.0-46.0); Mean Corpuscular HGB Conc 33.4 % (32.0-36.0); Mean Corpuscular Hemoglobin 30.2 pg (27.0-34.0); Mean Corpuscular Volume 90.4 fL (80.0-100.0); Mean Platelet Volume 7.8 fL (7.0-11.0); Platelet Count 305 th/mm3 (150-450); Red Blood Count 2.64 mil/mm3 (4.00-5.30); White Blood Count 4.4 th/mm3 (4.0-11.0)
[2017-09-08 05:01] LABS: Alanine Aminotransferase 15 U/L (10-53); Albumin 1.8 g/dL (3.4-5.0); Anion Gap 4 meq/L (5-15); Aspartate Aminotransferase 8 U/L (15-37); Blood Urea Nitrogen 15 mg/dL (7-18); Calcium 8.2 mg/dL (8.5-10.1); Carbon Dioxide 35.3 meq/L (21.0-32.0); Chloride 101 meq/L (98-107); Glomerular Filtration Rate 74 mL/min (>89); Glucose,Random 246 mg/dL (74-106); Magnesium 1.8 mg/dL (1.5-2.5); Potassium 4.1 meq/L (3.5-5.1); Sodium 140 meq/L (136-145)
[2017-09-08 05:06] LABS: Alkaline Phosphatase 91 U/L (45-117); Total Protein 4.6 g/dL (6.4-8.2)
[2017-09-08 05:25] LABS: Lymphocytes 3 % (9-44); Monocytes 4 % (0-8)
[2017-09-08 05:42] LABS: Platelet Estimate Normal (Normal); Platelet Morphology Normal (Normal); RBC Morphology Normal (Normal)
[2017-09-08] MEDS: Heparin - SQ 10,000 UNITS/ML Vial SQ SCH (08:35)
[2017-09-08] MEDS: Vitamin B Complex/Vit C/Folic Tablet PO SCH (08:36)
[2017-09-08] MEDS: Lactobacillus Acidophilus/L. Spores Tablet PO SCH ×2 (08:36→14:11)
[2017-09-08] MEDS: Calcium Carbonate 500 MG Tablet PO SCH (08:37)
[2017-09-08] MEDS: Baclofen 10 MG Tablet PO SCH (08:37)
[2017-09-08] MEDS: Metoprolol Tartrate 50 MG Tablet PO SCH (08:37)
[2017-09-08] MEDS: Furosemide 40 MG Tablet PO SCH (08:37)
[2017-09-08] MEDS: hydrALAZINE 25 MG Tablet PO SCH ×2 (08:38→14:11)
[2017-09-08] MEDS: predniSONE 20 MG Tablet PO SCH (08:38)
[2017-09-08] MEDS: amLODIPine 10 MG Tablet PO SCH (08:38)
[2017-09-08] MEDS: Senna/Docusate Sodium 8.6/50 MG Tablet PO SCH (08:38)
[2017-09-08] MEDS: Tiotropium Bromide 18 MCG/ACT Inhaler INH SCH (08:39)
[2017-09-08] MEDS: Nystatin/Diphenhydramine/Lidocaine Mouthwash (Adult) 120 ML Botttle SWISH-SWAL SCH ×2 (08:40→14:11)
--- NOTE | 2017-09-08 08:54 | P.DS ---
Date of admission: 08/21/17 06:53 Primary care physician: UNKNOWN Brief History from admission: Mrs. Hayes is an 81-year-old female. She has a past history of right leg fracture which was repaired and she subsequently was discharged to a longterm facility from [facility]. She says at the longterm facility she had developed pneumonia. She was started on IV antibiotics for this and initially had had improvement but recently while still in treatment she has been getting worse again. This likely represents a treatment failure with resistance. She cannot recall the antibiotic. She cannot recall the longterm facility name which she was admitted. The medical reconciliation does not appear to be up-to-date as no antibiotic is listed. Imaging shows a right upper lobe pneumonia and a left lower lobe pneumonia. Was treatments in the ER and oxygen supplementation patient is more comfortable when seen. DS: Medications - Discharge Medications Prescriptions: doxycycline hyclate 100 mg PO Q12HR #12 tab lorazepam [Ativan] 0.5 mg PO DAILY #3 tab DS: Summary Hospital Course: Patient was admitted, started on antibiotics. Infectious disease was consulted and help tailor antibiotics down to eventually monotherapy with doxycycline with substantial improvement clinically. Blood cultures are negative. Patient' s respiratory status had also stabilized with the help of pulmonology after bronchoscopy. Was weaned down to 3 L of oxygen, prior to hospitalization patient was on 2 L of oxygen chronically. Patient and undergone bronchoscopy with culture of washings all of which turned out to be negative, including blood cultures. Patient has met maximal benefit from hospitalization is clinically stable for discharge to a longterm facility. Will be discharged on antibiotics and scheduled steroids. Per radiology, nonspecific low densities were noted over the liver incidentally on the patient's CT pulmonary angiogram, patient will need outpatient imaging to further elucidate these findings preferably with MR of the abdomen with contrast. - Time Spent with Patient Total time spent providing and/or coordinating discharge services: Less than 30 minutes - Quality: VTE Deep Vein Thrombosis/Pulmonary Embolism Present on Admission: No Exam Vital signs: Vital Signs 09/07/17 12:00 09/07/17 15:22 09/07/17 16:00 Temperature 99.0 F 99.0 F Pulse Rate 84 91 H 100 H Respiratory Rate 16 18 16 Blood Pressure 121/58 L 123/56 L Pulse Oximetry 09/07/17 17:59 09/07/17 20:00 09/07/17 21:00 Temperature 97.9 F 97.6 F Pulse Rate 99 H 94 H Respiratory Rate 18 20 Blood Pressure 130/62 137/62 Pulse Oximetry 97 93 L 09/07/17 21:14 09/07/17 21:15 09/07/17 22:00 Temperature Pulse Rate 100 H 98 H Respiratory Rate 18 Blood Pressure Pulse Oximetry 96 09/07/17 23:00 09/08/17 00:00 09/08/17 01:00 Temperature 97.6 F Pulse Rate 78 76 76 Respiratory Rate 20 Blood Pressure 151/70 H Pulse Oximetry 92 L 09/08/17 02:00 09/08/17 03:00 09/08/17 03:01 Temperature Pulse Rate 82 92 H 76 Respiratory Rate Blood Pressure Pulse Oximetry 09/08/17 04:00 09/08/17 05:00 09/08/17 05:16 Temperature 98.5 F Pulse Rate 92 H 84 86 Respiratory Rate 20 20 Blood Pressure 153/70 H Pulse Oximetry 92 L 09/08/17 06:00 09/08/17 08:15 Temperature 98.4 F Pulse Rate 102 H 100 H Respiratory Rate 18 Blood Pressure 158/74 H Pulse Oximetry 94 L Intake & Output 09/07/17 09/08/17 09/08/17 18:59 06:59 18:59 Intake Total 240 / 240 240 / 240 Output Total 300 / 300 Balance 240 / 240 -60 / -60 Weight 44 kg Intake: Oral 240 / 240 240 / 240 Output: Urine 300 / 300 Other: # Incontinent Voids 2 Date of Last Bowel Movement 09/06/17 09/06/17 09/06/17 Narrative: Clear breath sounds bilaterally, unlabored breathing, on nasal cannula, on no acute distress Results Procedures completed during hospitalization: Fiberoptic bronchoscopy, flexible. REASON FOR BRONCHOSCOPY: Respiratory failure, mucous plugging. PROCEDURE: Fiberoptic bronchoscopy performed via LMA. Vocal cords intact. Trachea moderately hyperemic. [place] sharp. Right main stem bronchus, right upper, middle, and lower lobe, left main bronchus, left upper and lower lobes all inspected. Thick mucus plugs removed throughout the tracheobronchial tree. All plugs were removed. Washings were obtained from both sides of the tracheobronchial tree for routine TB, fungal cultures as well as cytological exam. Procedure well tolerated. The patient was transferred to Recovery in stable condition. IMPRESSION: 1. Mild tracheobronchitis. 2. Excess mucoid secretion and plugging. 3. Samples obtained as above. 4. Procedure well tolerated. 5. The patient was transferred to recovery in stable condition. Chelsea Tran MD WWW/TODD Labs on day of discharge: Labs from last 24 hours 09/08/17 09/08/17 03:57 03:57 WBC 4.4 RBC 2.64 L Hgb 8.0 L Hct 23.9 L MCV 90.4 MCH 30.2 MCHC 33.4 RDW 16.0 Plt Count 305 MPV 7.8 Prelim Diff (Auto) Manual diff required WBC Differential Manual diff final Seg Neuts % (Manual) 90 H Band Neuts % (Manual) 3 Lymphocytes % (Manual) 3 L Monocytes % (Manual) 4 Abs Neuts (Manual) 4.1 Differential Comment . Platelet Estimate Normal Platelet Morphology Normal RBC Morphology Normal Sodium 140 Potassium 4.1 Chloride 101 Carbon Dioxide 35.3 H Anion Gap 4 L BUN 15 Creatinine 0.75 Estimated GFR 74 L Random Glucose 246 H D Calcium 8.2 L Phosphorus 2.0 L Magnesium 1.8 Total Bilirubin 0.2 AST 8 L ALT 15 Alkaline Phosphatase 91 Total Protein 4.6 L Albumin 1.8 L Preliminary micro results at discharge 08/25/17 09:25 Mycobacterial Culture - Preliminary Bronchial Washings - Bronchial No growth in 1 week - Impressions ITS Impressions Chest CTA 08/21/17 00:00 CONCLUSION: 1. Left lower lobe consolidation and patchy infiltrate right upper lobe. 2. Small left pleural effusion. 3. Mild emphysema without mass. 4. No evidence for pulmonary embolism. 5. Coronary artery calcifications. 6. Multiple hepatic low densities. 7. Extensive calcification of the upper abdominal aorta. Chest X-Ray 09/06/17 06:00 CONCLUSION: 1. Persistent bibasilar airspace disease with associated effusions, unchanged. 2. Persistent biapical pleural-parenchymal scarring. Discharge Plan - Discharge Disposition Patient Disposition: Discharge to SNF - Discharge Condition Condition: Stable - Discharge Order Discharge Orders: Discharge Order (Routine); Ordered 09/08/17 Ordered By: Shashi Duggan - Physicians Team Primary Care Provider: UNKNOWN, Attending Provider: Shashi Duggan Other Providers: Keo Ambriz MD ; Cecil Jacob ; Chelsea Tran MD ; [facility]
== END 2017-09-08 14:42 ==
LOC: NEPE 03:36 → NEDA 06:53 → NEPFCDU 11:16 → N07 08-25 07:59 → HIMC 08-25 17:20 → HCPC 09-07 19:16
PROVIDERS: ADMIT Hospitalist; ATTEND Hospitalist